=== PATIENT | female | born 2000 | race Caucasian/White ===

== ENCOUNTER 2020-05-08 12:12 | Observation (INO) | payer OTHER, SELFPAY ==
--- NOTE | 2020-05-08 12:12 | OBADM ---
This patient, Lila Lira, admitted to the OB room OB Post 111 for observation. Patient/family oriented to hospital policies and general routines including ID bracelet, bed and alarms, visiting hours, pain management, procedures, bathroom and other care routines, personal items, smoking policy, room service/diet, and visiting hours. Patient/Family are encouraged to report perceived risks to care and to ask questions if they do not understand what they are told or what they should do.
[2020-05-08 12:40] VITALS: TEMP 36.1; BMI 23.0
[2020-05-08 12:45] VITALS: BP 98/57; PULSE 76
[2020-05-08 13:00] VITALS: BP 87/54; PULSE 120
[2020-05-08 13:15] VITALS: BP 96/66; PULSE 76
[2020-05-08] MEDS: TERBUTALINE SULFATE 1 MG/ML VIAL (14:55)
[2020-05-08] MEDS: BETAMETHASONE SOD PHOS/ACETATE 30 MG/5 ML VIAL 12 MG IM (15:00)
[2020-05-09 01:00] VITALS: TEMP 36.3
[2020-05-09 01:03] VITALS: BP 106/57; PULSE 92
[2020-05-09] MEDS: NIFEdipine 30 MG TAB.ER.24 PO (07:37)
[2020-05-09 07:38] VITALS: BP 95/65; PULSE 87
[2020-05-09 10:50] VITALS: BP 91/49; PULSE 124
--- NOTE | 2020-05-09 11:44 | P.PNOB_ITS ---
OB - PN: Subj Subjective Date/time seen: 05/09/20 11:44 Mild cramping felt in her pelvis and back. Positive movement. 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 Steroids were administered and she is stable on procardia. She will be discharged after second dose of betamethasone. Time Spent With Patient Time: Total time spent is greater than 50% in coordination of care (as documented) at patient's floor/unit and/or counseling patient: Exam Const: General: comfortable, no acute distress and alert Resp: Effort & Inspection: normal respiratory effort Auscultation: no crackles, no rales and no rhonchi Cardio: Rate: regular rate Heart sounds: no click, no murmurs and no rubs GI: Inspection: non-distended GI Palp: No Tenderness to palpation present (GI) Auscultation: normal bowel sounds Extrem: General: normal to inspection, no pedal edema and no calf tenderness
[2020-05-09 12:52] VITALS: BP 104/49; PULSE 101
[2020-05-09] MEDS: BETAMETHASONE SOD PHOS/ACETATE 30 MG/5 ML VIAL 12 MG IM (14:41)
--- NOTE | 2020-05-09 15:10 | PC.NURSE ---
1450- called to clarify terbutaline order for pt to take at home, clarification order given.
--- NOTE | 2020-05-09 15:10 | PC.NURSE ---
1300- talked with pt about discharging home after celestone injection this afternoon. Instructed on pelvic rest and medications that will be sent home and when to return to the office.
== END 2020-05-09 15:05 | disposition home or self-care (01) ==
PROVIDERS: Admitting Provider Obstetrics & Gynecology; Visit Provider Obstetrics & Gynecology
DX: O47.03 False labor before 37 completed weeks of gestation, third trimester (principal); Z3A.34 34 weeks gestation of pregnancy
CPT/HCPCS: 59025; 96372; A9270; G0378; G0379; J0702; J3105

== ENCOUNTER 2020-05-20 11:31 | Inpatient (IN) | payer OTHER, SELFPAY ==
[2020-05-20] VITALS (53 sets, daily range): BP systolic 86–118; BP diastolic 47–78; PULSE 52–136; TEMP 36.3–37; O2SAT 81–100; BMI 24.5
[2020-05-20] MEDS: AMPICILLIN 2 GM/NS 100 ML 2 GM/100 ML BAG IVPB (13:07)
[2020-05-20] MEDS: LACTATED RINGERS 1,000 ML 125 ML IV CONT (13:08)
[2020-05-20 13:55] LABS: Basophils Percent Auto 0.3 % (0.2-1.2); Eosinophils Absolute Auto 0.1 K/mm3 (0-0.3); Eosinophils Percent Auto 1.3 % (0-4.4); Hematocrit 28.8 % (37.0-47.0); Hemoglobin 9.6 g/dL (12.0-15.0); Immature Granulocyte Absolute 0.05 K/mm3 (0.00-0.031); Immature Granulocyte Percent A 0.6 % (0-0.5); Lymphocytes Absolute Auto 1.69 K/mm3 (0.9-3.2); Lymphocytes Percent Auto 21.4 % (18.3-44.2); Mean Corpuscular HGB Conc 33.3 g/dl (32-36); Mean Corpuscular Hemoglobin 28.7 pg (26-34); Mean Platelet Volume 11.8 fl (7.4-10.4); Monocytes Absolute Auto 0.8 K/mm3 (0.1-0.6); Monocytes Percent Auto 10.1 % (2.6-8.5); Neutrophils Absolute Auto 5.3 K/mm3 (1.3-6.7); Neutrophils Percent Auto 66.3 % (45.5-73.1); Platelet Count Result 127 k/mm3 (150-375); Red Blood Count 3.35 M/mm3 (4.2-5.4); Red Cell Distribution Width 12.6 % (11.5-14.5); White Blood Count 7.9 K/mm3 (4.5-10.0)
--- NOTE | 2020-05-20 14:19 | LDADM ---
This patient, Lila Lira, was admitted to Labor/Delivery/Recovery 107 on 05/20/20 at 11:32. Plans for labor, pain management and were discussed with patient. Patient/family oriented to hospital policies and general routines including ID bracelet, bed and alarms, visiting hours, pain management, procedures, bathroom and other care routines, personal items, smoking policy, room service/diet and guest tray routines, security routines, and visiting hours. Patient/Family are encouraged to report perceived risks to care and to ask questions if they do not understand what they are told or what they should do. See OBIX for further documentation.
[2020-05-20 17:19] LABS: Amphetamine Screen Urine Negative (Negative); Barbiturate Screen Urine Negative (Negative); Benzodiazepines Screen Urine Negative (Negative); Cannabinoid Screen Urine Negative (Negative); Cocaine Screen Urine Negative (Negative); Methadone Screen Urine Negative (Negative); Opiate Screen Urine Negative (Negative); Phencyclidine Screen Urine Negative (Negative)
[2020-05-20] MEDS: AMPICILLIN 1 GM/NS 50 ML 1 GM/50 ML BAG IVPB ×2 (17:48→21:19)
[2020-05-20] MEDS: OXYTOCIN 30 UNITS/NS 500 ML 30 UNITS/500 ML BAG IV CONT (18:56)
--- NOTE | 2020-05-20 20:36 | WPDANESEPP ---
Anes - Eval Pre Procedure Procedure: Labor epidural Date/Time: 05/20/20 20:36 Surgeon: olvin Preop Diagnosis: pain during labor Pre Op Diagnosis: Leaking fluid Patient Data Age: 20 Gender: F Height: 1.6 m Weight: 63 kg Last Vital Signs Temp 36.5 C 05/20/20 19:00 Pulse 88 05/20/20 20:31 BP 95/47 L 05/20/20 20:31 Allergies Allergy/AdvReac Type Severity Reaction Status Date / Time No Known Allergies Allergy Verified 05/08/20 14:58 Home Medications Medication Instructions Recorded Confirmed Type nifedipine [Procardia XL] 30 mg PO Q24H #20 tablet 05/09/20 Rx terbutaline 5 mg PO Q6H PRN #20 tablet 05/09/20 Rx Laboratory Tests 05/20/20 05/20/20 05/20/20 12:17 12:17 13:50 WBC 7.9 K/mm3 K/mm3 (4.5-10.0) RBC 3.35 M/mm3 L M/mm3 (4.2-5.4) Hgb 9.6 g/dL L g/dL (12.0-15.0) Hct 28.8 % L % (37.0-47.0) MCV 86.0 fl fl (80-100) MCH 28.7 pg pg (26-34) MCHC 33.3 g/dl g/dl (32-36) RDW 12.6 % % (11.5-14.5) Plt Count 127 k/mm3 L k/mm3 (150-375) MPV 11.8 fl H fl (7.4-10.4) Immature Gran % (Auto) 0.6 % H % (0-0.5) Neut % (Auto) 66.3 % % (45.5-73.1) Lymph % (Auto) 21.4 % % (18.3-44.2) Clinch % (Auto) 10.1 % H % (2.6-8.5) Eos % (Auto) 1.3 % % (0-4.4) Baso % (Auto) 0.3 % % (0.2-1.2) Lymph # (Auto) 1.69 K/mm3 K/mm3 (0.9-3.2) Clinch # (Auto) 0.8 K/mm3 H K/mm3 (0.1-0.6) Eos # (Auto) 0.1 K/mm3 K/mm3 (0-0.3) Baso # (Auto) 0.0 K/mm3 K/mm3 (0.0-0.1) Abs Immat Gran (auto) 0.05 K/mm3 H K/mm3 (0.00-0.031) Absolute Neuts (auto) 5.3 K/mm3 K/mm3 (1.3-6.7) Absolute Nucleated RBC 0.0 K/mm3 K/mm3 (0.0-0.012) Nucleated RBC % 0.0 % % (0.0-0.2) Urine Opiates Screen Urine Methadone Screen Ur Barbiturates Screen Ur Phencyclidine Scrn Ur Amphetamine Screen U Benzodiazepines Scrn Urine Cocaine Screen U Cannabinoids Screen RPR Pending Blood Type O Positive Antibody Screen Negative 05/20/20 16:55 WBC RBC Hgb Hct MCV MCH MCHC RDW Plt Count MPV Immature Gran % (Auto) Neut % (Auto) Lymph % (Auto) Cl[place] % (Auto) Eos % (Auto) Baso % (Auto) Lymph # (Auto) Clinch # (Auto) Eos # (Auto) Baso # (Auto) Abs Immat Gran (auto) Absolute Neuts (auto) Absolute Nucleated RBC Nucleated RBC % Urine Opiates Screen Negative (Negative) Urine Methadone Screen Negative (Negative) Ur Barbiturates Screen Negative (Negative) Ur Phencyclidine Scrn Negative (Negative) Ur Amphetamine Screen Negative (Negative) U Benzodiazepines Scrn Negative (Negative) Urine Cocaine Screen Negative (Negative) U Cannabinoids Screen Negative (Negative) RPR Blood Type Antibody Screen Patient hx anesthesia problems: none Family hx anesthesia problems: none [facility] Social History Social History Smoking status: Never smoker Second hand tobacco smoke exposure: No Alcohol intake: current Substance use: never Substance use type: does not use Living arrangements: with family Occupation/Education: unemployed Gender identity (if verbalized by the patient): Female Sexual Orientation (if Verbalized by the Patient): Straight or Heterosexual Spiritual care concerns: No Agree to blood products: Yes Exam Day of Procedure 05/20/20 20:36
[2020-05-20] MEDS: LACTATED RINGERS 1,000 ML 999 ML IV CONT ×2 (22:16→23:16)
--- NOTE | 2020-05-20 23:47 | PM.OBPRVD ---
OB - Delivery Note Procedure Delivery date: 05/20/20 events: Labor < 37 Weeks Intrapartal events: None Induction method: none Delivery monitor: external FHT and external uterine Laceration description: None Specimen: Yes Estimated blood loss (mL): 126 Disposition: other () Narrative: vaginal delivery Baby Date of : 05/20/20 Time of : 23:37 Weeks of gestation at delivery: 35 gender: Female Weight (pounds): 5 Weight (ounces): 13 presentation: vertex position: Right Occiput Anterior Placenta delivery description: Spontaneous cord vessel description: 3 Vessels and Clamped/Cut score one minute: 9 score five minutes: 9 Narrative: baby vigorous and skin to skin mother and baby in stable condition
--- NOTE | 2020-05-20 23:49 | WPDOBADMIT ---
Obstetrics - Admit Note Admission Note: record reviewed. No pertinent additions to the history and/or any subsequent changes in the physical findings that are not consistent with the expected course of the were found. Pt arrived PROM, antibiotics started, Additions to the history and/or subsequent changes in the physical findings follow. None.
[2020-05-21] VITALS (10 sets, daily range): BP systolic 99–120; BP diastolic 58–74; PULSE 63–101; RESP 18; TEMP 36.7–36.8; O2SAT 100
[2020-05-21] MEDS: OXYTOCIN 30 UNITS/NS 500 ML 30 UNITS/500 ML BAG 125 UNITS IV CONT (00:15)
--- NOTE | 2020-05-21 02:59 | PC.NURSE ---
0202 on May 21, 2020. Patient transferred to post room #285 via wheelchair. Support person present. Oriented to unit, room, information board, rooming in, admission packet and security measures. Patient verbalizes understanding.
[2020-05-21] MEDS: IBUPROFEN 600 MG TABLET PO ×2 (04:02→11:35)
[2020-05-21 05:28] LABS: Hematocrit 29.1 % (37.0-47.0); Hemoglobin 9.6 g/dL (12.0-15.0)
--- NOTE | 2020-05-21 07:40 | PM.OBPNVD ---
OB - PN: Subj Subjective Date/time seen: 05/21/20 07:40 Patient comments: no complaints, pain well controlled and other (Lochia similar to menses) [place] baby status: doing well OB - PN: Obj Data Labs CBC & Chem 7: 05/21/20 04:53 Labs: Laboratory Results - last 24 hr 05/20/20 05/20/20 05/20/20 12:17 13:50 16:55 WBC 7.9 RBC 3.35 L Hgb 9.6 L Hct 28.8 L MCV 86.0 MCH 28.7 MCHC 33.3 RDW 12.6 Plt Count 127 L MPV 11.8 H Immature Gran % (Auto) 0.6 H Neut % (Auto) 66.3 Lymph % (Auto) 21.4 [place] % (Auto) 10.1 H Eos % (Auto) 1.3 Baso % (Auto) 0.3 Lymph # (Auto) 1.69 [place] # (Auto) 0.8 H Eos # (Auto) 0.1 Baso # (Auto) 0.0 Abs Immat Gran (auto) 0.05 H Absolute Neuts (auto) 5.3 Absolute Nucleated RBC 0.0 Nucleated RBC % 0.0 Urine Opiates Screen Negative Urine Methadone Screen Negative Ur Barbiturates Screen Negative Ur Phencyclidine Scrn Negative Ur Amphetamine Screen Negative U Benzodiazepines Scrn Negative Urine Cocaine Screen Negative U Cannabinoids Screen Negative Blood Type O Positive Antibody Screen Negative 05/21/20 04:53 WBC RBC Hgb 9.6 L Hct 29.1 L MCV MCH MCHC RDW Plt Count MPV Immature Gran % (Auto) Neut % (Auto) Lymph % (Auto) [place] % (Auto) Eos % (Auto) Baso % (Auto) Lymph # (Auto) [place] # (Auto) Eos # (Auto) Baso # (Auto) Abs Immat Gran (auto) Absolute Neuts (auto) Absolute Nucleated RBC Nucleated RBC % Urine Opiates Screen Urine Methadone Screen Ur Barbiturates Screen Ur Phencyclidine Scrn Ur Amphetamine Screen U Benzodiazepines Scrn Urine Cocaine Screen U Cannabinoids Screen Blood Type Antibody Screen OB - PN A/P Plan day: 1 (s/p vaginal delivery, doing well) Plan: routine care Time Spent With Patient Time: Total time spent is greater than 50% in coordination of care (as documented) at patient's floor/unit and/or counseling patient: Exam Const: General: no acute distress GI: Inspection: other (Fundus firm and nontender at umbilicus) GI Palp: Yes Soft to palpation and No Tenderness to palpation present (GI) Extrem: General: no edema
[2020-05-21 08:21] LABS: Rapid Plasma Reagin Non-Reactive (NonReactive)
--- NOTE | 2020-05-21 08:55 | WPDANLDPN2 ---
Anes-Prog Note L&D Date/Time: 05/21/20 08:55 Comfortable throughout: labor and delivery Neuraxial method: epidural Epidural/Spinal procedure site: clean & non-tender Neuro status: Neuro function grossly intact. Cardiovascular status: normal Respiratory status: normal Airway patency: baseline Mental status: baseline Post-Op hydration status: normal Vital Signs: Last Vital Signs Temp 98.2 F 05/21/20 08:49 Pulse 63 05/21/20 08:49 Resp 18 05/21/20 08:49 BP 103/68 05/21/20 08:49 Pulse Ox 100 05/21/20 08:49 I/O: Intake & Output 05/20/20 05/21/20 05/21/20 23:59 07:59 15:59 Intake Total 2100 1200 Output Total 146 Balance 2100 1054 Patient feedback: Patient satisfied with anesthetic care.
[2020-05-21] MEDS: MULTIVIT/MIN/PREN/FOL AC/IRON TABLET 1 TAB PO (10:44)
[2020-05-21] MEDS: DOCUSATE SODIUM 100 MG CAPSULE PO ×2 (10:44→18:16)
[2020-05-21] MEDS: POLYSACCHARIDE IRON COMPLEX 150 MG CAPSULE PO ×2 (10:44→18:16)
--- NOTE | 2020-05-21 11:00 | PC.NURSE ---
Consult with pt., mother reports she is breast and bottle feeding. Mother states infant is very sleepy and does not make an effort to latch. Discussed the with possible sleepiness, low tone, and ability to maintain deep latch. Mother states she attempted with first child that was 2 weeks early and switched within a few days. Discussed stimulation of milk supply offering to assist mother with initiation of pumping. Mother states she will continue to formula feed for now and will let her RN or call out for LC if she chooses to begin pumping.
[2020-05-21] MEDS: ACETAMINOPHEN 325 MG TABLET 650 MG PO (18:18)
[2020-05-22] MEDS: ACETAMINOPHEN 325 MG TABLET 650 MG PO (05:42)
[2020-05-22] MEDS: MULTIVIT/MIN/PREN/FOL AC/IRON TABLET 1 TAB PO (07:42)
[2020-05-22] MEDS: DOCUSATE SODIUM 100 MG CAPSULE PO (07:42)
[2020-05-22] MEDS: IBUPROFEN 600 MG TABLET PO (07:42)
[2020-05-22] MEDS: POLYSACCHARIDE IRON COMPLEX 150 MG CAPSULE PO (07:42)
--- NOTE | 2020-05-22 07:52 | PM.OBPNVD ---
OB - PN: Subj Subjective Date/time seen: 05/22/20 07:52 OB - PN: Obj Data Labs CBC & Chem 7: 05/21/20 04:53 Labs: Laboratory Results - last 24 hr 05/20/20 12:17 RPR Non-reactive OB - PN A/P Plan day: 2 Plan: discharge home Time Spent With Patient Time: Total time spent is greater than 50% in coordination of care (as documented) at patient's floor/unit and/or counseling patient: Review of Systems Review of Systems: All systems reviewed & are unremarkable except as noted in HPI and below Exam Const: General: comfortable Resp: Effort & Inspection: normal respiratory effort Psych: Appearance: grossly normal Affect: normal affect Attitude: cooperative Judgement: Good judgement present (Psych)
[2020-05-22 08:25] VITALS: BP 111/70; PULSE 68; RESP 16; TEMP 36.6; O2SAT 100
--- NOTE | 2020-05-22 09:35 | PC.NURSE ---
Patient instructed on viewing the discharge video Mother & Baby Care, The First Two Weeks . Patient was given the opportunity and encouraged to ask questions. Patient verbalized understanding of information shared and has been given the mother/baby guide for home reference.
--- NOTE | 2020-05-23 12:33 | PM.OBDSVD ---
OB - DS: Summary OB Procedures : None OB Procedures Intrapartum: Spontaneous Vag Delivery OB Procedures: : None Time Spent with Patient Time attestation: Total time spent providing and/or coordinating discharge services: DS: Data Data Completed and Pending Completed studies during hospitalization: Pending at discharge 05/21/20 00:56 Surgical [PTH] Routine Discharge Plan Discharge Attending physician on discharge: Bertha Mendieta Consulting providers: Danii Hamilton Discharging Clinician: Danii Hamilton Patient Disposition: Home, Self-Care Activity: pelvic rest Diet: regular Discharge Instructions: Education: Mom and Baby Guide Given to: Mother Follow-Up: Call your delivering provider's office for an appointment to be seen in: 4 Weeks [facility]. Appointment Date/Time: May 23, 2020 at 10:00 am What to expect at your follow-up visit: Physical Assessment Call [phone] if you are unable to keep your appointment time. BREAST CARE: * Wear a snug supportive bra. * For engorgement discomfort: Bottle Feeding: * May apply ice packs EPISIOTOMY/PERINEAL CARE: * Until bleeding stops, use your april bottle after urinating * Change your pad frequently throughout the day * No tub baths until seen by your physician - You may shower ACTIVITY: * Rest as much as possible. * Do not exercise or lift anything heavier than your baby (such as laundry or other children.) * Avoid stairs or driving as much as possible. * Do not put anything into the vagina. No douching, tampons, or sexual activity until seen by physician. NOTIFY PHYSICIAN IF YOU HAVE ANY QUESTIONS OR IF ANY OF THE FOLLOWING SYMPTOMS OCCUR: * If your perineum becomes red, swollen, or more painful than what you have experienced in the hospital. * If your vaginal bleeding becomes foul smelling. * If your vaginal bleeding becomes more heavy than a period or if your bleeding changes from pink to bright red. However, you may pass an occasional walnut-sized clot once or twice for the first week . * If you experience a sharp, shooting pain in you calves. * If you discover a hard, reddened area on your breast or if you experience flu-like symptoms. DIET: * Eat regular, well-balanced meals. * Drink plenty of fluids daily. Stand Alone Forms: General Discharge Information Follow-up/Referrals: Danii Hamilton CNM [Certified Nurse [employer]] - 4 Weeks Discharge Medications: New polysaccharide iron complex 150 mg iron Capsule 150 mg PO BIDWM Qty: 60 RF: 0 Discontinued nifedipine [Procardia XL] 30 mg Tablet Extended Release 24hr 30 mg PO Q24H Qty: 20 RF: 0 terbutaline 5 mg Tablet 5 mg PO Q6H PRN (Reason: MORE THAN 6 CONTRACTIONS/HR) Qty: 20 RF: 0 Date of admission: 05/20/20 11:32 Primary Care Provider: PHYSICIAN,TAILORING TEACHER Admitting Provider: Bertha Mendieta Discharge Date/Time: 05/22/20 12:00 Attending physician on admission: Bertha Mendieta
== END 2020-05-22 12:00 | disposition home or self-care (01) | DRG 560 ==
LOC: ANHLDR 15:08 → ANHOB2 05-21 02:05
PROVIDERS: Advanced Practice Midwife; Admitting Provider Obstetrics & Gynecology; Visit Provider Obstetrics & Gynecology
DX: O60.14X0 Preterm labor third trimester with preterm delivery third trimester, not applicable or unspecified (principal); Z37.0 Single live birth; Z3A.35 35 weeks gestation of pregnancy; O36.8330 Maternal care for abnormalities of the fetal heart rate or rhythm, third trimester, not applicable or unspecified
CPT/HCPCS: 36415; 80307; 85014; 85018; 85025; 86592; 86850; 86900; 86901; 88307; A9270; J0290; J2590; J2795; J7120

== ENCOUNTER 2021-05-23 11:27 | Emergency (ER) | payer OTHER, SELFPAY ==
[2021-05-23 11:36] VITALS: BP 103/69; PULSE 81; RESP 18; TEMP 36.9; O2SAT 100
--- NOTE | 2021-05-23 12:07 | ED.NAVMDI ---
HPI - Nausea/Vomiting/Diarrhea General Chief complaint: Nausea/Vomiting/Diarrhea Stated complaint: VOMITING/DIARRHEA Source: patient and RN notes reviewed Mode of arrival: ambulatory History of Present Illness HPI Narrative: This is a 21-year-old female who presented to urgent care with nausea vomiting and diarrhea that started this morning. According to patient she assumed that she had food poisoning because she had her own meal which she does not usually do. She did note with her vomiting and there was food particles. Denies any blood in her urine or vomit. The patient denies SOB, CP, palpitation, extremity numbness, lightheadedness, dizziness, constipation, diarrhea, chills, abdominal pain or fever. MD elicited complaint: nausea, vomiting and diarrhea Related Data Allergies Allergy/AdvReac Type Severity Reaction Status Date / Time No Known Allergies Allergy Verified 05/23/21 11:38 Review of Systems Review of Systems: A 14 organ system Review of Systems was performed and pertinent positives included in the HPI, otherwise remaining ROS is negative. [facility] Family History Family History (Updated 05/23/21 @ 12:09 by KEON Galvin-C) Other Family history non-contributory Exam Narrative: GENERAL: This is a well-nourished, well-developed patient, in no apparent distress. HEAD: normocephalic, atraumatic. EYES: PERRL. Sclera clear/white. Vision is grossly intact. EARS: External ears normal, auditory canals clear and without drainage, TMs normal without perforation. Hearing grossly intact. NOSE: External nose normal with no obvious nasal discharge, nares without redness, no rhinorrhea. THROAT: Mucous membranes moist, posterior pharynx clear. NECK: Neck supple, non-tender without lymphadenopathy, masses or thyromegaly. CARDIOVASCULAR: Regular rate and rhythm without murmurs, gallops, or rubs. RESPIRATORY: Clear to auscultation. Breath sounds equal bilaterally. No wheezes, rales, or rhonchi. GASTROINTESTINAL: Abdomen soft, non-tender, nondistended. Bowel sounds are active. No hepato-splenomegaly, or palpable masses. No guarding. SKIN: warm, intact with no suspicious lesions or rash, good texture and turgor. NEURO: awake, alert, and oriented to person, place and time. There were no obvious focal neurologic abnormalities. Steady gait EXTREMITIES: Normal range of motion. No edema. No calf tenderness. Negative Homans sign bilaterally. BACK: Nontender without deformity or crepitance. No flank tenderness. Course Course Emergency Course: Patient was discharged home with Zofran and Imodium and instructed to stay hydrated Vital Signs Vital signs: Vital Signs Temperature 98.5 F 05/23/21 11:36 Pulse Rate 81 05/23/21 11:36 Respiratory Rate 18 05/23/21 11:36 Blood Pressure 103/69 05/23/21 11:36 Pulse Oximetry 100 05/23/21 11:36 Temperature 98.5 F 05/23/21 11:36 Pulse Rate 81 05/23/21 11:36 Respiratory Rate 18 05/23/21 11:36 Blood Pressure 103/69 05/23/21 11:36 Pulse Oximetry 100 05/23/21 11:36 MDM - Nausea/Vomiting/Diarrhea Differential Diagnosis Differential diagnosis: Likely traveler's diarrhea, food poisoning and gastroenteritis Discharge Plan Discharge Clinical Impression: Gastritis Qualifiers: Gastritis type: unspecified gastritis Chronicity: acute Gastritis bleeding: without bleeding Qualified Code(s): K29.00 - Acute gastritis without bleeding Patient Disposition: Home, Self-Care Condition: Stable Instructions: Antibiotic Form, Gastroenteritis (ED), Acute Nausea and Vomiting (ED) Additional Instructions: What are the symptoms of gastritis? Pain in the upper belly Feeling bloated, or feeling full after eating a small amount of food Decreased appetite Nausea or vomiting Vomiting blood, or having black-colored bowel movements Feeling more tired than usual - This happens if people with gastritis get a condition called anemia. Should I call my doctor or nurse
== END 2021-05-23 12:24 | disposition home or self-care (01) ==
PROVIDERS: Emergency Provider Nurse Practitioner
DX: K29.00 Acute gastritis without bleeding (principal)
CPT/HCPCS: 99203; G0463

== ENCOUNTER 2021-06-29 09:15 | Emergency (ER) | payer OTHER, SELFPAY ==
[2021-06-29 09:31] VITALS: BP 102/59; PULSE 73; RESP 16; TEMP 36.6; O2SAT 100
--- NOTE | 2021-06-29 10:04 | ED.NAVMDI ---
HPI - Nausea/Vomiting/Diarrhea General Chief complaint: Nausea/Vomiting/Diarrhea Stated complaint: diarrhea/vomiting/fever Time Seen by Provider: 06/29/21 10:07 Source: patient, RN notes reviewed and old records reviewed Mode of arrival: ambulatory Limitations: no limitations History of Present Illness HPI Narrative: 21 year old female who presents to express care with complaints of nausea with vomiting and diarrhea since 2:00 this morning. Patient reports emesis X2 early this morning and she has had 4 diarrhea stools.Patient states that she has been able to keep down some water today but has not tried any food. She states that she did have a fever yesterday up to 100F with some chills did take some Ibuprofen. Patient reports also that her son did have diarrhea recently was diagnosed with viral infection. MD elicited complaint: vomiting and diarrhea Related Data Home Medications Medication Instructions Recorded Confirmed medroxyprogesterone [Depo-Provera 150 mg IM [id number] 06/29/21 06/29/21 Contraceptive] Allergies Allergy/AdvReac Type Severity Reaction Status Date / Time No Known Allergies Allergy Verified 06/29/21 09:58 Review of Systems Review of Systems: CONSTITUTIONAL: Reports 100 Fahrenheit temperature yesterday, chills, no sweats. EYES: Denies visual changes, redness, or discharge. ENT: Denies rhinorrhea, congestion, sore throat, or otalgia. CARDIOVASCULAR: Denies chest pain, palpitations, or edema. RESPIRATORY: Denies cough or dyspnea. GASTROINTESTINAL: Left-sided abdominal cramping , nausea, vomiting, and diarrhea. GENITOURINARY: Denies dysuria or hematuria. SKIN: Denies rash or itching. MUSCULOSKELETAL: Denies back pain, joint pain, or myalgia. NEUROLOGIC: Denies headache, numbness, or weakness. PSYCHIATRIC: Denies anxiety or depression. All systems reviewed & are unremarkable except as noted in HPI and below PMFSH Past Medical History Medical History (Updated 07/05/21 @ 13:43 by Carole Whitney NP) No significant medical problems Surgical History Surgical History (Updated 07/05/21 @ 13:42 by Carole Whitney NP) History of tonsillectomy Family History Family History Other Family history non-contributory Social History Social History (Updated 07/05/21 @ 13:43 by Carole Whitney NP) Smoking status: Never smoker Alcohol intake: current Alcohol use details: social Substance use: never Living arrangements: with family Gender identity (if verbalized by the patient): Female Comments At time of signature, agree with nursing past medical, surgical, social and family history. There is no relevant family history pertinent to the presenting complaint Exam Narrative: GENERAL: Well-appearing, well-nourished, and in no acute distress. HEAD: Normocephalic, atraumatic. EYES: PERRLA and EOMI. ENT: Nares clear, no rhinorrhea or epistaxis. Mucous membranes moist.TM's normal with god light reflex, throat pink with no lesions or exudate tonsils absent. NECK: Supple.no lymphadenopathy CHEST: Clear to auscultation. No respiratory distress.SAO2 100% on room air HEART: Regular rate and rhythm. No murmur heard. Normal peripheral pulses. ABDOMEN: Soft, tender to palpation, nondistended, normal active bowel sounds.cramping type of discomfort related to diarrhea voiced.No McBurney point tenderness EXTREMITIES: Normal range of motion. No edema. SKIN: Warm, dry, no rash. NEURO: No focal deficits. Alert and oriented x3. Course Vital Signs Vital signs: Vital Signs Temperature 36.6 C 06/29/21 09:31 Pulse Rate 73 06/29/21 09:31 Respiratory Rate 16 06/29/21 09:31 Blood Pressure 102/59 L 06/29/21 09:31 Pulse Oximetry 100 06/29/21 09:31 Temperature 36.6 C 06/29/21 09:31 Pulse Rate 73 06/29/21 09:31 Respiratory Rate 16 06/29/21 09:31 Blood Pressure 102/59 L 06/29/21 09:31 Pulse Oximetry 100 06/29/21 09:
== END 2021-06-29 10:30 | disposition home or self-care (01) ==
PROVIDERS: Emergency Provider Registered Nurse
DX: K52.9 Noninfective gastroenteritis and colitis, unspecified (principal)
CPT/HCPCS: 99213; G0463

== ENCOUNTER 2022-01-10 19:23 | Emergency (ER) | payer OTHER, SELFPAY ==
[2022-01-10 19:32] VITALS: BP 116/66; PULSE 100; RESP 18; TEMP 37.4; O2SAT 100
--- NOTE | 2022-01-10 19:37 | ED.GENADULT ---
HPI - General Adult General Chief complaint: Unspecified Stated complaint: Chest Pain,Headache Time Seen by Provider: 01/10/22 19:37 Source: patient Mode of arrival: ambulatory Limitations: no limitations History of Present Illness HPI narrative: 21-year-old female presents with complaint of chest tightness, cough, sore throat, headache that started after cleaning bathroom with bleach today. Reports that she took Motrin but is still having headache. States that she just got really worried when symptoms started. Has cleaned with bleach in the past. Patient alert and talkative, denies shortness of breath. All systems reviewed and negative except as noted above. Related Data Home Medications Medication Instructions Recorded Confirmed No Home Medications 01/10/22 01/10/22 Allergies Allergy/AdvReac Type Severity Reaction Status Date / Time No Known Allergies Allergy Verified 01/10/22 19:37 Review of Systems Review of Systems: CONSTITUTIONAL: Denies fever, chills, or sweats. EYES: Denies visual changes, redness, or discharge. ENT: Denies rhinorrhea, congestion. Reports sore throat CARDIOVASCULAR: Reports chest pain. Denies palpitations, or edema. RESPIRATORY: Reports cough. Denies dyspnea. GASTROINTESTINAL: Denies abdominal pain, nausea, vomiting, or diarrhea. GENITOURINARY: Denies dysuria or hematuria. SKIN: Denies rash or itching. MUSCULOSKELETAL: Denies back pain, joint pain, or myalgia. NEUROLOGIC: Denies headache, numbness, or weakness. PSYCHIATRIC: Denies anxiety or depression. All other systems reviewed are negative, except as documented in HPI. [facility] Past Medical History Medical History (Updated 01/10/22 @ 19:49 by Julieth Harley NP) No significant medical problems Surgical History Surgical History (Updated 07/05/21 @ 13:42 by Carole Whitney NP) History of tonsillectomy Family History Family History Other Family history non-contributory Social History Social History (Updated 07/05/21 @ 13:43 by Carole Whitney NP) Smoking status: Never smoker Alcohol intake: current Alcohol use details: social Substance use: never Gender identity (if verbalized by the patient): Female Comments At time of signature, agree with nursing past medical, surgical, social and family history. There is no relevant family history pertinent to the presenting complaint. Exam Narrative: GENERAL: This is a well-nourished, well-developed patient, in no apparent distress. HEAD: normocephalic, atraumatic. EYES: PERRL. Sclera clear/white. Vision is grossly intact. EARS: External ears normal, auditory canals clear and without drainage, TMs normal without perforation. Hearing grossly intact. NOSE: External nose normal with no obvious nasal discharge, nares without redness, no rhinorrhea. THROAT: Mucous membranes moist, posterior pharynx clear. NECK: Neck supple, non-tender without lymphadenopathy, masses or thyromegaly. CARDIOVASCULAR: Regular rate and rhythm without murmurs, gallops, or rubs. RESPIRATORY: Clear to auscultation. Breath sounds equal bilaterally. No wheezes, rales, or rhonchi. SKIN: warm, Dry, intact with no suspicious lesions or rash, good texture and turgor. NEURO: awake, alert, and oriented to person, place and time. There were no obvious focal neurologic abnormalities. EXTREMITIES: Normal range of motion all extremities. Course Course Level of Care: Express Care Visit Vital Signs Vital signs: Vital Signs Temperature 37.4 C 01/10/22 19:32 Pulse Rate 100 01/10/22 19:32 Respiratory Rate 18 01/10/22 19:32 Blood Pressure 116/66 01/10/22 19:32 Pulse Oximetry 100 01/10/22 19:32 Temperature 37.4 C 01/10/22 19:32 Pulse Rate 100 01/10/22 19:32 Respiratory Rate 18 01/10/22 19:32 Blood Pressure 116/66 01/10/22 19:32 Pulse Oximetry 100 01/10/22 19:32 Reviewed Medical Decision Reji
--- NOTE | 2022-01-10 19:38 | ECG_ITS ---
Measurements Intervals [place] Rate: 93 P: 60 UT: 160 QRS: 76 QRSD: 84 T: 48 QT: 335 QTc: 418 Interpretive Statements SINUS RHYTHM WITHIN NORMAL LIMITS NO PREVIOUS ECG AVAILABLE FOR COMPARISON Electronically Signed On 01-11-2022 8:35:59 CDT by Kevin Chilel M.D.
== END 2022-01-10 20:08 | disposition home or self-care (01) ==
PROVIDERS: Emergency Provider Nurse Practitioner Family
DX: Z77.098 Contact with and (suspected) exposure to other hazardous, chiefly nonmedicinal, chemicals (principal); R07.9 Chest pain, unspecified; R05.9 Cough, unspecified; J02.9 Acute pharyngitis, unspecified; R51.9 Headache, unspecified; Z20.822 Contact with and (suspected) exposure to COVID-19
CPT/HCPCS: 87426; 87804; 93005; 99213; C9803; G0463

== ENCOUNTER 2022-04-28 19:04 | Emergency (ER) | payer OTHER, SELFPAY ==
[2022-04-28 19:12] VITALS: BP 96/48; PULSE 81; RESP 16; TEMP 37.1; O2SAT 100
--- NOTE | 2022-04-28 19:45 | ED.SKABFB ---
HPI - Skin/Abscess/Foreign Bdy General Chief complaint: Skin/Abscess/Foreign Body Stated complaint: rash Time Seen by Provider: 04/28/22 19:45 Source: patient Mode of arrival: ambulatory Limitations: no limitations History of Present Illness HPI narrative: 22-year-old female presented for complaint of rash to right elbow and scattered bumps to right hand, first noticed today. Bumps are itchy, denies pain or drainage. Denies changes to lotion, soap, detergent etc. She had been taking oral Flagyl, but changed to cream. Denies any other locations of lesions. Denies anyone in the household with similar lesions. MD complaint: rash Related Data Allergies Allergy/AdvReac Type Severity Reaction Status Date / Time No Known Allergies Allergy Verified 04/28/22 19:55 Review of Systems Review of Systems: CONSTITUTIONAL: Denies body aches, fever, chills, or sweats. EYES: Denies visual changes, redness, or discharge. ENT: Denies rhinorrhea, congestion, sore throat, or otalgia. CARDIOVASCULAR: Denies chest pain, palpitations, or edema. RESPIRATORY: Denies cough or dyspnea. SKIN: reports rash, itching MUSCULOSKELETAL: Denies back pain, joint pain, or myalgia. NEUROLOGIC: Denies headache, numbness, tingling, or weakness. [facility] Past Medical History Medical History No significant medical problems Surgical History Surgical History History of tonsillectomy Family History Family History Other Family history non-contributory Social History Social History Smoking status: Never smoker Alcohol intake: current Alcohol use details: social Substance use: never Gender identity (if verbalized by the patient): Female Comments At time of signature, I have reviewed and agree with nursing past medical, surgical, social and family history unless otherwise noted. Please see nursing chart for further information. There is no relevant family history pertinent to the presenting complaint Exam Narrative: GENERAL: Well-appearing EYES: conjunctivae clear, and EOMI. ENT: Mucous membranes moist. Oropharynx without edema, erythema or lesions. CHEST: Clear to auscultation. No respiratory distress. HEART: Regular rate and rhythm. SKIN: Warm, dry. approx 3cm diameter patch of erythematous raised lesions to right elbow about 3mm diameter, no drainage or fluctuance NEURO: Alert and oriented x3. Course Course Emergency Course: Patient is aware of diagnosis, understands and agrees to treatment plan. Anticipatory guidance given. Patient agrees to follow-up as directed and is aware of reasons to seek care at the emergency department. Portions of this record may have been created with voice recognition software Level of Care: Express Care Visit Vital Signs Vital signs: Vital Signs Temperature 98.7 F 04/28/22 19:12 Pulse Rate 81 04/28/22 19:12 Respiratory Rate 16 04/28/22 19:12 Blood Pressure 96/48 L 04/28/22 19:12 Pulse Oximetry 100 04/28/22 19:12 Oxygen Delivery Room Air 04/28/22 19:12 Temperature 98.7 F 04/28/22 19:12 Pulse Rate 81 04/28/22 19:12 Respiratory Rate 16 04/28/22 19:12 Blood Pressure 96/48 L 04/28/22 19:12 Pulse Oximetry 100 04/28/22 19:12 Oxygen Delivery Room Air 04/28/22 19:12 Reviewed MDM - Skin/Abscess/Foreign Bdy MDM Narrative Medical decision making narrative: Endorses irregular menses x2 months, urine preg neg. Advised supportive measures for dermatitis and signs/symptoms to go to the ER. Pt is appropriate for outpt treatment and f/u. Differential Diagnosis Differential diagnosis: Likely urticaria, allergic reaction to drug, cellulitis, insect bites and contact dermatitis Discharge Plan Discharge Clinical Impression: Dermatitis
== END 2022-04-28 20:05 | disposition home or self-care (01) ==
PROVIDERS: Emergency Provider Nurse Practitioner Family; PCP Internal Medicine
DX: L30.9 Dermatitis, unspecified (principal)
CPT/HCPCS: 81025; 99213; G0463

== ENCOUNTER 2022-08-22 11:50 | Outpatient (RCR) | payer OTHER, SELFPAY ==
[2022-08-22 12:33] LABS: Beta HCG Quantitative < 2.39 mIU/ML
== END 2022-11-20 23:59 | disposition home or self-care (01) ==
LOC: ANHLAB 11:50
PROVIDERS: PCP Internal Medicine; Visit Provider Obstetrics & Gynecology
DX: N92.6 Irregular menstruation, unspecified (principal)
CPT/HCPCS: 36415; 84702

== ENCOUNTER 2022-10-05 15:37 | Observation (INO) | payer OTHER, SELFPAY ==
--- NOTE | ~2022-10-05 | US_ITS ---
EXAMINATION: US OB <=14 wk fetus w TV DATE: 10/05/2022 20:39 INDICATION: Right lower quadrant abdominal pain and lower abdominal cramping during first trimester p regnancy. TECHNIQUE: Real-time pelvic ultrasound utilizing both a transvaginal and transabdominal probe was pe rformed. The interpreting radiologist was not present for the study. COMPARISON: None. FINDINGS: The uterus measures 8.9 x 5.0 x 6.4 cm. There is heterogeneous mixed hypoechoic and isoechoic materi al within the endometrial canal which is dilated to 1.7 cm .No evident double decidua sign, internal yolk sac or pole. The right ovary measures 2.8 x 1.9 x 2.1 cm with multiple small subcentimeter anechoic follicles. cm. The left ovary measures 2.7 x 2.1 x 2.0 cm. Vascular flow is identified in both ovaries on color Dop pler. On the cine images, anechoic parametrial vessels can be seen along side the uterus and a band o f hypoechoic soft tissue extending between the uterus and the right ovary likely representing the fal lopian tube and broad ligament. Along the course of the likely fallopian tube is approximately 11 mm centrally anechoic cystic structure with internal 2 mm echogenic focus which raises concern for ectop ic . There is no free fluid in the pelvis. IMPRESSION: 1. No intrauterine gestational sac. Differential would include failed or ectopic . Heterogen eous hyperechoic and isoechoic material within the dilated endometrial canal which could represent bl ood/clot or potentially products of a failed conception. 2. 2 mm echogenic focus within 11 mm anechoic cystic structure along what appears to be the right fal lopian tube which raises high level of concern for a tubal ectopic . Recommend PLASTICS PRODUCTION 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 consul tation. Dr. Lai discussed these findings with Dr. Sandhu at 8:55 PM. Reviewed, dictated and finalized at location A. EGNATOR OPERATOR IMPRESSION: 1. No intrauterine gestational sac. Differential would include failed or ectopi c . Heterogeneous hyperechoic and isoechoic material within the dilate d endometrial canal which could represent blood/clot or potentially products of a failed conception. 2. 2 mm echogenic focus within 11 mm anechoic cystic structure along what appea rs to be the right fallopian tube which raises high level of concern for a tuba l ectopic . Recommend PLASTICS PRODUCTION 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 consultation. Dr. Lai discussed thes e findings with Dr. Sandhu at 8:55 PM.
[2022-10-05 16:22] VITALS: BP 106/64; PULSE 72; RESP 16; TEMP 36.9; O2SAT 100
[2022-10-05 18:17] LABS: Basophils Absolute Auto 0.1 K/mm3 (0.0-0.1); Basophils Percent Auto 0.7 % (0.2-1.2); Eosinophils Absolute Auto 0.3 K/mm3 (0-0.3); Eosinophils Percent Auto 3.3 % (0-4.4); Hematocrit 39.2 % (37.0-47.0); Hemoglobin 12.9 g/dL (12.0-15.0); Immature Granulocyte Absolute 0.02 K/mm3 (0.00-0.031); Immature Granulocyte Percent A 0.3 % (0-0.5); Lymphocytes Absolute Auto 3.34 K/mm3 (0.9-3.2); Lymphocytes Percent Auto 43.5 % (18.3-44.2); Mean Corpuscular HGB Conc 32.9 g/dl (32-36); Mean Corpuscular Hemoglobin 28.7 pg (26-34); Mean Corpuscular Volume 87.1 fl (80-100); Monocytes Absolute Auto 0.6 K/mm3 (0.1-0.6); Monocytes Percent Auto 7.7 % (2.6-8.5); Neutrophils Absolute Auto 3.4 K/mm3 (1.3-6.7); Neutrophils Percent Auto 44.5 % (45.5-73.1); Platelet Count Result 251 k/mm3 (150-375); Red Cell Distribution Width 12.1 % (11.5-14.5); White Blood Count 7.7 K/mm3 (4.5-10.0)
--- NOTE | 2022-10-05 18:24 | PC.NURSE ---
Patient states she began bleeding on the and had heavy bleeding that day, but has not had any bleeding since
--- NOTE | 2022-10-05 18:57 | ED.GENADULT ---
HPI - General Adult General Chief complaint: Vaginal Bleeding <RELL Chacon Last Filed: 10/06/22 03:30> Stated complaint: cramping, bleeding, (unknown gestestion) <RELL Chacon Last Filed: 10/06/22 03:30> Time Seen by Provider: 10/05/22 18:31 <RELL Chacon Last Filed: 10/06/22 03:30> Source: patient <RELL Chacon Last Filed: 10/06/22 03:30> Mode of arrival: ambulatory <RELL Chacon Filed: 10/06/22 03:30> Limitations: no limitations <RELL Chacon Last Filed: 10/06/22 03:30> History of Present Illness HPI narrative: Patient is a 22 y/o female who presents to the ED with c/o lower ABD cramping. Patient reports she was late on her menstrual cycle last month. Last normal menstrual period 08/25. She had an episode of vaginal bleeding on 10/01. Bleeding was slightly heavy that day and she assumed she was having her normal menstrual cycle. Bleeding lasted for 1 day. She has not had any bleeding since then. Patient developed some mild breast tenderness yesterday and took a test at home which was positive. This makes her A1. Today, patient developed lower abdominal cramping, worse on the right side, which prompted her presentation. She has not taken anything for the pain. She reports nausea but denies vomiting. Denies urinary symptoms, fever, diarrhea, constipation. She plans to follow with Dr. Mendieta but has not made an appointment to see him yet. <RELL Chacon Last Filed: 10/06/22 03:30> Related Data Allergies/adverse reactions: Allergies Allergy/AdvReac Type Severity Reaction Status Date / Time No Known Allergies Allergy Verified 10/05/22 16:23 <RELL Chacon Last Filed: 10/06/22 03:30> Review of Systems Review of Systems: CONSTITUTIONAL: Denies fever, chills, or sweats. CARDIOVASCULAR: Denies chest pain. RESPIRATORY: Denies dyspnea. GASTROINTESTINAL: Reports lower abdominal cramping, nausea. Denies vomiting, constipation, or diarrhea. GENITOURINARY: Reports 1 day of vaginal bleeding. Denies dysuria or hematuria. <Mary Sandhu PA-C - Last Filed: 10/06/22 03:30> All systems reviewed & are unremarkable except as noted in HPI and below <Mary Sandhu PA-C - Last Filed: 10/06/22 03:30> PMFSH Past Medical History Medical History: Medical History No significant medical problems <Mary Sandhu PA-C - Last Filed: 10/06/22 03:30> Surgical History Surgical History: Surgical History History of tonsillectomy <Mary Sandhu PA-C - Last Filed: 10/06/22 03:30> Family History Family History: Family History Other Family history non-contributory <Mary Sandhu PA-C - Last Filed: 10/06/22 03:30> Social History Social History: Social History Smoking status: Never smoker Alcohol intake: current Alcohol use details: social Substance use: never Gender identity (if verbalized by the patient): Female <Mary Sandhu PA-C - Last Filed: 10/06/22 03:30> Exam Narrative: GENERAL: Well appearing, well-nourished, non-toxic, in no acute distress. HEAD: Normocephalic, atraumatic. NECK: Supple. No adenopathy, no masses. RESPIRATORY: Airway patent, respirations nonlabored. Clear to auscultation bilaterally, no rales, rhonchi, wheezing. CARDIOVASCULAR: Regular rate and rhythm without murmurs, rubs, or gallops. Peripheral pulses 2+ and equal bilaterally. ABDOMINAL: Soft, mild tenderness throughout lower ABD, worse in RLQ, nondistended, no hepatosplenomegaly. Normoactive BS. MUSCULOSKELETAL: Moves all extremities. Strength
[2022-10-05 19:17] VITALS: BP 110/96; PULSE 60; RESP 14; O2SAT 100
[2022-10-05 19:28] LABS: Add Urine Microscopic? YES; Appearance Urine Slightly Cloudy (Clear); Bilirubin Urine Negative (Negative); Blood Urine Negative (Negative); Color Urine Yellow (Yellow); Glucose Urine UA Negative (Negative); Ketones Urine Trace mg/dL (Negative); Leukocyte Esterase Ur Negative LEU/UL (Negative); Nitrate Urine Negative (Negative); Protein Urine Negative (Negative); Specific Grav Ur >= 1.030 (1.001-1.035)
[2022-10-05 19:36] LABS: Mucus Urine Heavy /lpf; RBC Urine 0-2 /hpf (0-2); Squamous Epithelial Cell Urine Few /hpf (Few); WBC Urine 0-3 /hpf
[2022-10-05 21:55] LABS: INR 1.1; Prothrombin Time 13.9 Seconds (11.1-14.7)
[2022-10-05 21:56] LABS: Partial Thromboplastin Time 29.6 SECONDS (22.3-36.8)
[2022-10-05 22:13] VITALS: BP 114/68; PULSE 63; RESP 16; O2SAT 100
[2022-10-05 23:17] VITALS: BP 124/61; PULSE 62; TEMP 36.9
[2022-10-05 23:18] VITALS: BP 124/61; PULSE 62
[2022-10-06 00:16] VITALS: BMI 20.4
--- NOTE | 2022-10-06 01:24 | OBADM ---
This patient, Lila Lira, admitted to the OB room OB Post 113 for observation. Patient/family oriented to hospital policies and general routines including ID bracelet, bed and alarms, visiting hours, pain management, procedures, bathroom and other care routines, personal items, smoking policy, room service/diet, and visiting hours. Patient/Family are encouraged to report perceived risks to care and to ask questions if they do not understand what they are told or what they should do.
[2022-10-06 01:26] VITALS: BP 124/61; PULSE 105; TEMP 36.9
[2022-10-06 04:07] VITALS: BP 111/67; PULSE 75; TEMP 36.9
[2022-10-06 04:08] VITALS: BP 111/67; PULSE 75
[2022-10-06 05:26] LABS: Hematocrit 35.1 % (37.0-47.0); Hemoglobin 11.7 g/dL (12.0-15.0)
--- NOTE | 2022-10-06 08:30 | PM.IMHP ---
H&P: HPI History of Present Illness Date/Time: 10/06/22 08:30 Chief Complaint: Vaginal bleeding Narrative: this patient is a 22-year-old multiparous female at unknown gestational age. She presented the ER with some vaginal bleeding. She has a positive test at home. She has no pain. She is evaluated in the emergency department. She has a 1 cm cystic structure in the adnexa. She has nothing in the intrauterine cavity. She denies any nausea, vomiting, fever, chills. Review of Systems Review of Systems: All systems reviewed & are unremarkable except as noted in HPI and below Constitutional: Constitutional: Denies chills, Denies fatigue, Denies fever(s) and Denies weakness Eyes: Eyes: Denies blurry vision, Denies change in vision, Denies loss of peripheral vision, Denies loss of vision, Denies other visual disturbances and Denies eye pain ENT: Denies vertigo, Denies dizziness, Denies hearing loss, Denies mouth pain, Denies nasal obstruction, Denies neck mass and Denies neck pain Cardiovascular: Cardiovascular: Denies chest pain, Denies diaphoresis, Denies syncope, Denies leg edema and Denies dyspnea Respiratory: Respiratory: Denies chest congestion, Denies cough, Denies hemoptysis, Denies dyspnea and Denies wheezing Gastrointestinal: Gastrointestinal: Denies abdominal pain, Denies constipation, Denies diarrhea, Denies nausea and Denies vomiting Genitourinary: Genitourinary: Denies hematuria, Denies change in libido, Denies nocturia, Denies genital lesions, Denies flank pain and Denies urinary urgency Musculoskeletal: Musculoskeletal: Denies abnormal gait, Denies back pain, Denies myalgias, Denies arthralgias, Denies joint swelling, Denies muscle weakness and Denies neck pain Integumentary/Breasts: Skin/Breast: Denies swelling, Denies breast pain, Denies breast mass, Denies dry skin, Denies nipple discharge, Denies unusual bruising and Denies jaundice Neurologic: Denies Neuro-related abnormal movements, Denies Abnormal speech present, Denies abnormal gait, Denies behavioral changes, Denies confusion, Denies vertigo, Denies dizziness, Denies syncope, Denies loss of vision, Denies memory loss, Denies convulsions and Denies weakness Psychiatric: Psychiatric: Denies abnormal sleep pattern, Denies behavioral changes, Denies change in libido, Denies confusion, Denies depression, Denies anhedonia and Denies memory loss Endocrine: Endocrine: Reports no additional endocrine complaints, Denies change in libido and Denies fatigue Hematologic/Lymphatic: Hematologic/Lymphatic: Reports no additional hematologic/lymphatic complaints Allergic/Immunologic: Allergic/Immunologic: Reports no additional allergic/immunologic complaints and Denies wheezing PMFSH Past Medical History Medical History No significant medical problems Surgical History Surgical History History of tonsillectomy Family History Family History Other Family history non-contributory Social History Social History Smoking status: Never smoker Alcohol intake: current Alcohol use details: social Substance use: never Gender identity (if verbalized by the patient): Female Meds Home Medications and Allergies Home Medications Medication Instructions Recorded Confirmed Type methylprednisolone 4 mg tablets in See Rx Instructions PO .COMPLEX 04/28/22 Rx a dose pack (Medrol (Maksim)) #21 ea Allergies Allergy/AdvReac Type Severity Reaction Status Date / Time No Known Allergies Allergy Verified 10/05/22 16:23 Vital Signs Vital Signs - 24 hr 10/05/22 16:22 10/05/22 19:17 10/05/22 22:13 Temperature 98.5 F Pulse Rate 72 60 63 Respiratory Rate 16 14 16 Blood Pressure 106/64 110/96 H 114/68 Pulse O
--- NOTE | 2022-10-26 20:31 | PM.OBTRLD ---
OB - Triage/Final Diagnosis Visit Information Comments/Additional reasons for admission: I have assessed the risk for this patient, Lila Lira, and determined that she would benefit from observation care. Evaluation Laboratory results: Laboratory Tests 10/05/22 10/05/22 10/05/22 18:09 18:09 19:14 WBC 7.7 RBC 4.50 Hgb 12.9 Hct 39.2 MCV 87.1 MCH 28.7 MCHC 32.9 RDW 12.1 Plt Count 251 MPV 11.0 H Immature Gran % (Auto) 0.3 Neut % (Auto) 44.5 L Lymph % (Auto) 43.5 Wheeler % (Auto) 7.7 Eos % (Auto) 3.3 Baso % (Auto) 0.7 Lymph # (Auto) 3.34 H Wheeler # (Auto) 0.6 Eos # (Auto) 0.3 Baso # (Auto) 0.1 Abs Immat Gran (auto) 0.02 Absolute Neuts (auto) 3.4 Absolute Nucleated RBC 0.0 Nucleated RBC % 0.0 PT INR APTT Beta HCG, Quant 570.23 Urine Color Yellow Urine Appearance Slightly cloudy Urine pH 6.0 Ur Specific [place] >= 1.030 Urine Protein Negative Urine Glucose (UA) Negative Urine Ketones Trace Ur Blood (Man) Negative Urine Nitrate Negative Urine Bilirubin Negative Urine Urobilinogen 1.0 Leukocyte Esterase Rfl Negative Urine RBC 0-2 Urine WBC 0-3 Ur Squamous Epith Cells Few Urine Mucus Heavy H Blood Type Antibody Screen Screen Doses of RhIg Required 10/05/22 10/05/22 10/06/22 19:45 21:41 05:03 WBC RBC Hgb 11.7 L Hct 35.1 L MCV MCH MCHC RDW Plt Count MPV Immature Gran % (Auto) Neut % (Auto) Lymph % (Auto) Wheeler % (Auto) Eos % (Auto) Baso % (Auto) Lymph # (Auto) Wheeler # (Auto) Eos # (Auto) Baso # (Auto) Abs Immat Gran (auto) Absolute Neuts (auto) Absolute Nucleated RBC Nucleated RBC % PT 13.9 INR 1.1 APTT 29.6 Beta HCG, Quant Urine Color Urine Appearance Urine pH Ur Specific [place] Urine Protein Urine Glucose (UA) Urine Ketones Ur Blood (Man) Urine Nitrate Urine Bilirubin Urine Urobilinogen Leukocyte Esterase Rfl Urine RBC Urine WBC Ur Squamous Epith Cells Urine Mucus Blood Type O Positive Antibody Screen Negative Screen TNP Doses of RhIg Required 0 10/06/22 05:03 WBC RBC Hgb Hct MCV MCH MCHC RDW Plt Count MPV Immature Gran % (Auto) Neut % (Auto) Lymph % (Auto) Wheeler % (Auto) Eos % (Auto) Baso % (Auto) Lymph # (Auto) Wheeler # (Auto) Eos # (Auto) Baso # (Auto) Abs Immat Gran (auto) Absolute Neuts (auto) Absolute Nucleated RBC Nucleated RBC % PT INR APTT Beta HCG, Quant 449.09 Urine Color Urine Appearance Urine pH Ur Specific [place] Urine Protein Urine Glucose (UA) Urine Ketones Ur Blood (Man) Urine Nitrate Urine Bilirubin Urine Urobilinogen Leukocyte Esterase Rfl Urine RBC Urine WBC Ur Squamous Epith Cells Urine Mucus Blood Type Antibody Screen Screen Doses of RhIg Required Final Diagnosis (1) Ectopic : Qualifiers: Intrauterine status: without intrauterine Laterality: right Location of ectopic : tubal Qualified Code(s): O00.101 - Right tubal without intrauterine Code(s): O00.90 - Unspecified ectopic without intrauterine Status: Acute
== END 2022-10-06 08:33 | disposition home or self-care (01) ==
LOC: ANHED 21:34 → ANHOBPP 10-06 03:30
PROVIDERS: Emergency Medicine; Physician Assistant; Admitting Provider Obstetrics & Gynecology; Emergency Provider Emergency Medicine; Visit Provider Obstetrics & Gynecology
DX: Z32.01 Encounter for pregnancy test, result positive (principal); O36.80X0 Pregnancy with inconclusive fetal viability, not applicable or unspecified; O26.899 Other specified pregnancy related conditions, unspecified trimester; O46.90 Antepartum hemorrhage, unspecified, unspecified trimester; R10.30 Lower abdominal pain, unspecified; Z3A.00 Weeks of gestation of pregnancy not specified
CPT/HCPCS: 36415; 76801; 76817; 81001; 84702; 85014; 85018; 85025; 85461; 85610; 85730; 86850; 86900; 86901; 96374; 99285; G0378; G0379; J0131

== ENCOUNTER 2022-12-16 11:05 | Emergency (ER) | payer OTHER, SELFPAY ==
[2022-12-16 11:15] VITALS: BP 112/60; PULSE 82; RESP 16; TEMP 36.3; O2SAT 100
[2022-12-16 11:16] VITALS: BP 112/60; PULSE 82; RESP 16; TEMP 36.3; O2SAT 100
--- NOTE | 2022-12-16 11:53 | ED.GENADULT ---
HPI - General Adult General Chief complaint: Upper Respiratory Infection Stated complaint: Sore Throat/ Source: patient Mode of arrival: ambulatory Limitations: no limitations History of Present Illness HPI narrative: Patient presents for evaluation of upper respiratory symptoms for last 2 days. Symptoms include sinus congestion, scratchy throat and rhinorrhea. She has experience hot flashes but denies objective fever. No chills, nausea, vomiting, diarrhea. She is currently , 5 weeks gestation with her 1st appointment this coming Thursday. . Denies any abdominal pain or vaginal bleeding. She contacted her OBGYNs office to ask what medications she could take. They advised she could take benadryl and claritin. She is wondering whether there are any other therapies that would be beneficial. no recent sick contacts to her knowledge. Related Data Home Medications Medication Instructions Recorded Confirmed vits no.126-ferrous fum 1 tablet DAILY 12/16/22 12/16/22 28 mg iron-folic acid 800 mcg tablet (Classic ) Allergies Allergy/AdvReac Type Severity Reaction Status Date / Time No Known Allergies Allergy Verified 10/07/22 09:01 Review of Systems Review of Systems: CONSTITUTIONAL: Denies fever, chills, or sweats. EYES: Denies visual changes, redness, or discharge. ENT: reports rhinorrhea, nasal congestion, and a scratchy throat . CARDIOVASCULAR: Denies chest pain, palpitations, or edema. RESPIRATORY: Denies cough or dyspnea. GASTROINTESTINAL: Denies abdominal pain, nausea, vomiting, or diarrhea. GENITOURINARY: Denies dysuria or hematuria. SKIN: Denies rash or itching. MUSCULOSKELETAL: Denies back pain, joint pain, or myalgia. NEUROLOGIC: Denies headache, numbness, dizziness, or weakness. PSYCHIATRIC: Denies anxiety or depression. [facility] Past Medical History Medical History No significant medical problems Surgical History Surgical History History of tonsillectomy Family History Family History Other Family history non-contributory Social History Social History Smoking status: Never smoker Second hand tobacco smoke exposure: No Alcohol intake: current Alcohol use details: social Substance use: never Substance use type: does not use Living arrangements: with family Occupation/Education: unemployed Gender identity (if verbalized by the patient): Female Sexual Orientation (if Verbalized by the Patient): Straight or Heterosexual Spiritual care concerns: No Agree to blood products: Yes Exam Narrative: GENERAL: Well-appearing, well-nourished, and in no acute distress. HEAD: Normocephalic, atraumatic. EYES: PERRLA and EOMI. ENT: Nares clear, no rhinorrhea or epistaxis. Mucous membranes moist. Oropharynx without tonsillar hypertrophy exudate or other lesions. Bilateral TMs pearly zuleta nonbulging NECK: Supple. No adenopathy or masses. No carotid bruits or JVD CHEST: Clear to auscultation. No respiratory distress. No wheezes rales or rhonchi HEART: Regular rate and rhythm. No murmur heard. Normal peripheral pulses. ABDOMEN: Soft, nontender, nondistended, normal active bowel sounds. EXTREMITIES: Normal range of motion. No edema. SKIN: Warm, dry, no rash. NEURO: No focal deficits. Alert and oriented x3. PSYCH: Normal mood and affect. Course Course Emergency Course: This is a 22-year-old female who presented for evaluation of upper respiratory symptoms. Strep was negative. Exam is consistent with viral URI. She may take Tylenol, Claritin, Benadryl. Follow up with OBGYN this coming Thursday. Go to the ER for worsening symptoms. Patient in agreement with plan of care. Level of Care: Express
== END 2022-12-16 12:00 | disposition home or self-care (01) ==
PROVIDERS: Emergency Provider Nurse Practitioner; PCP Internal Medicine
DX: O99.511 Diseases of the respiratory system complicating pregnancy, first trimester (principal); J06.9 Acute upper respiratory infection, unspecified; Z3A.01 Less than 8 weeks gestation of pregnancy
CPT/HCPCS: 87081; 87880; 99213; G0463

== ENCOUNTER 2022-12-17 07:43 | Emergency (ER) | payer OTHER, SELFPAY ==
--- NOTE | ~2022-12-17 | US_ITS ---
EXAMINATION: US OB <=14 wk fetus w TV DATE: 12/17/2022 09:04 INDICATION: History of ectopic . TECHNIQUE: Real-time transabdominal and transvaginal obstetric ultrasound. FINDINGS: No prior studies for comparison. The uterus measures 8.3 x 4.7 x 6.3 cm. There is an intrauterine gestational sac, with pole ariana ntified. The crown rump length measures 0.28 cm, which correlates with a estimated gestational age o f 5 weeks 6 days. heart tones are identified measuring 131 BPM. There is a subchorionic hemor rhage measuring 1.4 x 0.5 x 0.4 cm. There is an irregular cystic mass of the right ovary measuring 2. 1 cm, likely an involuting corpus luteal cyst. Left ovary is unremarkable. Normal Doppler signal in b oth ovaries. IMPRESSION: 1. SL IUP with an EGA of 5 weeks, 6 days (EDC by current ultrasound of 08/13/2023). 2: Subchorionic hemorrhage. 3: Irregular cystic mass of the right ovary measuring 2.1 cm, most likely involuting corpus luteal c yst. Recommend attention to this on subsequent study. Reviewed, dictated and finalized at location B. [facility] IMPRESSION: 1. SL IUP with an EGA of 5 weeks, 6 days (EDC by current ultrasound of 08/13/20). 2: Subchorionic hemorrhage. 3: Irregular cystic mass of the right ovary measuring 2.1 cm, most likely invo luting corpus luteal cyst. Recommend attention to this on subsequent study.
[2022-12-17 07:58] VITALS: BP 118/73; PULSE 86; RESP 16; O2SAT 100
--- NOTE | 2022-12-17 08:12 | ED.GENADULT ---
HPI - General Adult General Chief complaint: Abdominal Pain Stated complaint: ABD PAIN, 5WKS PREG, HX ECTOPIC Time Seen by Provider: 12/17/22 07:47 History of Present Illness HPI narrative: 22-year-old female presenting to the emergency department for evaluation of right-sided abdominal pain. Patient had an ectopic approximately 2 months ago, patient follows up with Dr. Mendieta, patient reports she was treated with a shot . Patient did have a positive test on 12/08. Patient began having right-sided abdominal pain last night and progressed through this morning. Patient declined any medication for pain control. Patient denies any vaginal bleeding vaginal discharge. Related Data Home Medications Medication Instructions Recorded Confirmed vits no.126-ferrous fum 1 tablet DAILY 12/16/22 12/16/22 28 mg iron-folic acid 800 mcg tablet (Classic ) Allergies Allergy/AdvReac Type Severity Reaction Status Date / Time No Known Allergies Allergy Verified 10/07/22 09:01 Review of Systems Review of Systems: CONSTITUTIONAL: Denies fever, chills, or sweats. EYES: Denies visual changes, redness, or discharge. ENT: Denies rhinorrhea, congestion, sore throat, or otalgia. CARDIOVASCULAR: Denies chest pain, palpitations, or edema. RESPIRATORY: Denies cough or dyspnea. GASTROINTESTINAL: See HPI GENITOURINARY: Denies dysuria or hematuria. SKIN: Denies rash or itching. MUSCULOSKELETAL: Denies back pain, joint pain, or myalgia. NEUROLOGIC: Denies headache, numbness, or weakness. PSYCHIATRIC: Denies anxiety or depression. [facility] Past Medical History Medical History No significant medical problems Surgical History Surgical History History of tonsillectomy Family History Family History Other Family history non-contributory Social History Social History Smoking status: Never smoker Second hand tobacco smoke exposure: No Alcohol intake: current Alcohol use details: social Substance use: never Substance use type: does not use Living arrangements: with family Occupation/Education: unemployed Gender identity (if verbalized by the patient): Female Sexual Orientation (if Verbalized by the Patient): Straight or Heterosexual Spiritual care concerns: No Agree to blood products: Yes Exam Narrative: APPEARANCE: Well appearing, no pain, no distress, well-nourished. HEAD: normocephalic, atraumatic. EYES: PERRLA/EOMI, conjunctivae clear. NOSE: Normal no drainage NECK: Supple. No adenopathy, no masses. RESPIRATORY: Airway patent, respirations nonlabored. Clear to auscultation bilaterally, no rales, rhonchi, wheezing. CARDIOVASCULAR: Regular rate and rhythm without murmurs rubs or gallops. ABDOMINAL: Soft, nondistended, normal bowel sounds, right CVA and right-sided abdominal tenderness to palpation MUSCULOSKELETAL: Moves all extremities. Strength/ROM intact, No edema, No calf tenderness. NEURO: Alert. Cranial nerves II through XII intact. Grossly intact SKIN: Warm, dry. Normal Color Course Course Emergency Course: 22-year-old female reporting 5 weeks with history of ectopic. Beta-hCG, UA and ultrasound to rule out ectopic were ordered Patient denies any vaginal bleeding vaginal discharge. Patient is afebrile with no leukocytosis. Patient's CMP is similar to her baseline. Patient's UA showed no evidence of urinary tract infection. Ultrasound did show a single live intrauterine of 5 weeks and 6 days along with a subchorionic hemorrhage. I called to discuss the case with the patient's [employer]CH[employer] Dr. Mendieta and they are comfortable seeing the patient in clinic as follow-up. Patient and family were updated on the results of the wor
[2022-12-17 08:17] LABS: Basophils Percent Auto 0.6 % (0.2-1.2); Eosinophils Absolute Auto 0.1 K/mm3 (0-0.3); Eosinophils Percent Auto 2.7 % (0-4.4); Hematocrit 39.4 % (37.0-47.0); Hemoglobin 13.4 g/dL (12.0-15.0); Immature Granulocyte Absolute 0.01 K/mm3 (0.00-0.031); Immature Granulocyte Percent A 0.2 % (0-0.5); Lymphocytes Absolute Auto 1.76 K/mm3 (0.9-3.2); Lymphocytes Percent Auto 33.4 % (18.3-44.2); Mean Corpuscular Hemoglobin 29.4 pg (26-34); Mean Corpuscular Volume 86.4 fl (80-100); Mean Platelet Volume 10.7 fl (7.4-10.4); Monocytes Absolute Auto 0.5 K/mm3 (0.1-0.6); Monocytes Percent Auto 9.7 % (2.6-8.5); Neutrophils Absolute Auto 2.8 K/mm3 (1.3-6.7); Neutrophils Percent Auto 53.4 % (45.5-73.1); Platelet Count Result 233 k/mm3 (150-375); Red Blood Count 4.56 M/mm3 (4.2-5.4); Red Cell Distribution Width 12.2 % (11.5-14.5); White Blood Count 5.3 K/mm3 (4.5-10.0)
[2022-12-17 08:30] LABS: Alanine Aminotransferase 13 U/L (6-35); Albumin Level 4.6 g/dL (3.5-5.1); Alkaline Phosphatase 50 U/L (38-126); Anion Gap 6 mmol/L (8-16); Aspartate Amino Transferase 18 U/L (14-36); Bilirubin,Total 0.5 mg/dL (0.2-1.3); Blood Urea Nitrogen 7 mg/dL (7-17); Calcium 8.8 mg/dL (8.4-10.2); Carbon Dioxide 28 mmol/L (22-30); Chloride 102 mmol/L (98-107); Estimated CRCL calculation 120 ml/min; Estimated Glomerular Filt Rate > 60; Glucose 94 mg/dL (65-110); INR 1.1; Potassium 3.4 mmol/L (3.4-5.0); Prothrombin Time 13.4 Seconds (11.1-14.7); Sodium 136 mmol/L (137-145)
[2022-12-17 08:31] LABS: Partial Thromboplastin Time 28.5 SECONDS (22.3-36.8)
[2022-12-17 08:34] LABS: Appearance Urine Clear (Clear); Bilirubin Urine Negative (Negative); Blood Urine Negative (Negative); Color Urine Yellow (Yellow); Glucose Urine UA Negative (Negative); Ketones Urine Negative (Negative); Leukocyte Esterase Ur Negative LEU/UL (Negative); Nitrate Urine Negative (Negative); Protein Urine Negative (Negative); Specific Grav Ur 1.023 (1.001-1.035); pH Urine 5.5 (5.0-9.0)
[2022-12-17 08:48] LABS: Add Urine Microscopic? NO
[2022-12-17 10:22] VITALS: BP 116/70; PULSE 70; RESP 14; O2SAT 98
== END 2022-12-17 10:23 | disposition home or self-care (01) ==
PROVIDERS: Emergency Provider Emergency Medicine; PCP Internal Medicine
DX: O41.8X10 Other specified disorders of amniotic fluid and membranes, first trimester, not applicable or unspecified (principal); Z3A.01 Less than 8 weeks gestation of pregnancy
CPT/HCPCS: 36415; 76801; 76817; 80053; 81003; 81025; 84702; 85025; 85610; 85730; 99284

== ENCOUNTER 2023-01-08 14:42 | Emergency (ER) | payer OTHER, SELFPAY ==
[2023-01-08 14:50] VITALS: BP 111/51; PULSE 92; RESP 14; TEMP 36.6; O2SAT 100
--- NOTE | 2023-01-08 15:15 | ED.GENADULT ---
HPI - General Adult General Chief complaint: Ear Stated complaint: Headache/Right Ear Time Seen by Provider: 01/08/23 15:15 Source: patient, RN notes reviewed and old records reviewed Mode of arrival: ambulatory Limitations: no limitations History of Present Illness HPI narrative: 22-year-old female presents to the [facility] with complaints of a headache and right ear pain. Patient reports that she is 9 weeks Has an appointment tomorrow with Dr. Jones office Onset (ago): day(s) (1) Related Data Home Medications Medication Instructions Recorded Confirmed vits no.126-ferrous fum 1 tablet DAILY 12/16/22 01/08/23 28 mg iron-folic acid 800 mcg tablet (Classic ) aspirin 81 mg tablet,delayed 81 mg PO DAILY 01/08/23 01/08/23 release (Adult Low Dose Aspirin) Allergies Allergy/AdvReac Type Severity Reaction Status Date / Time No Known Allergies Allergy Verified 01/08/23 15:07 Review of Systems Review of Systems: All systems reviewed & are unremarkable except as noted in HPI and below Constitutional: Constitutional: Reports as per HPI and Reports headache(s) Eyes: Eyes: Reports no additional eye complaints ENT: Reports as per HPI and Reports otalgia (Right ear) Cardiovascular: Cardiovascular: Reports no additional cardiovascular complaints, Denies chest pain and Denies dyspnea Respiratory: Respiratory: Reports no additional respiratory complaints, Denies chest congestion, Denies cough and Denies dyspnea Gastrointestinal: Gastrointestinal: Reports no additional gastrointestinal complaints, Denies abdominal pain, Denies nausea and Denies vomiting Musculoskeletal: Musculoskeletal: Reports no additional musculoskeletal complaints Integumentary/Breasts: Skin/Breast: Reports system reviewed and no additional complaints, except as docu Neurologic: Reports system reviewed and no additional complaints, except as documented Psychiatric: Psychiatric: Reports no additional psychiatric complaints Allergic/Immunologic: Allergic/Immunologic: Reports no additional allergic/immunologic complaints PMF Past Medical History Medical History No significant medical problems Surgical History Surgical History History of tonsillectomy Family History Family History Other Family history non-contributory Social History Social History Smoking status: Never smoker Second hand tobacco smoke exposure: No Alcohol intake: current Alcohol use details: social Substance use: never Substance use type: does not use Living arrangements: with family Occupation/Education: unemployed Gender identity (if verbalized by the patient): Female Sexual Orientation (if Verbalized by the Patient): Straight or Heterosexual Spiritual care concerns: No Agree to blood products: Yes Comments At the time of my signature, I reviewed and agree with the nursing past medical, surgical, social, and family history. There is no relevant family history pertinent to the patient complaint. Exam Const: General: cooperative, healthy appearing, comfortable, no acute distress, well developed, alert and well nourished Nutritional Appearance: well nourished Orientation/consciousness: patient oriented x3 Limitations: no limitations HENMT: Head: normal to inspection Ears: hearing grossly normal bilaterally and external ears normal Face/Nose/Sinus: Normal external nose present, Normal nares present, Normal nasal mucous membranes and turbinates present and normal facial exam Face and sinus: normal facial exam Mouth: Yes Normal oral and palatal mucosa present, Yes lip normal and Yes moist mucous membranes Throat: posterior oropharynx normal and uvula midline Eyes: General: appearance normal, both
== END 2023-01-08 15:22 | disposition home or self-care (01) ==
PROVIDERS: Emergency Provider Nurse Practitioner; PCP Internal Medicine
DX: H65.01 Acute serous otitis media, right ear (principal); R51.9 Headache, unspecified
CPT/HCPCS: 99211; G0463

== ENCOUNTER 2023-04-10 23:38 | Emergency (ER) | payer OTHER, SELFPAY ==
[2023-04-10 23:41] VITALS: BP 112/54; PULSE 81; RESP 17; TEMP 36.1; O2SAT 100
[2023-04-11 01:49] VITALS: BP 112/73; PULSE 86; RESP 14; TEMP 36.4; O2SAT 100
--- NOTE | 2023-04-11 02:04 | ED.HA ---
HPI - Headache General Chief Complaint: Headache Stated Complaint: Migraine STACY, 23 weeks preg Time Seen by Provider: 04/11/23 01:47 History of Present Illness HPI Narrative: 22-year-old female who is currently 23 weeks here for evaluation of migraine headache. Patient has had a headache for the past 3 days. She been taking Tylenol throughout her with good relief of her symptoms but she is unable to control the headache at home. Her OB Dr. Mendieta prescribed Fioricet which she has been taking without relief, he is advised ED evaluation if she was no better. No nausea, vomiting, visual changes, leg swelling, abdominal pain or vaginal bleeding. No history of preeclampsia or complications with her pregnancies. Related Data Home Medications Medication Instructions Recorded Confirmed vits no.126-ferrous fum 1 tablet DAILY 12/16/22 01/08/23 28 mg iron-folic acid 800 mcg tablet (Classic ) aspirin 81 mg tablet,delayed 81 mg PO DAILY 01/08/23 01/08/23 release (Adult Low Dose Aspirin) Allergies Allergy/AdvReac Type Severity Reaction Status Date / Time No Known Allergies Allergy Verified 04/10/23 23:46 Review of Systems Review of Systems: Gen.: Denies fevers or chills Eyes: Denies eye pain or visual change ENT: Denies congestion Respiratory: Denies shortness of breath or cough CV: Denies chest pain or palpitations GI: Denies abdominal pain nausea, emesis or diarrhea denies burning, urgency, frequency or hematuria Musculoskeletal: Denies back pain or muscle pain Neuro: Reports headache. Denies numbness, tingling, weakness or focal weakness Skin: Denies rash Except as documented, all other systems reviewed and negative [facility] Past Medical History Medical History No significant medical problems Surgical History Surgical History History of tonsillectomy Family History Family History Other Family history non-contributory Social History Social History Smoking status: Never smoker Second hand tobacco smoke exposure: No Alcohol intake: current Alcohol use details: social Substance use: never Substance use type: does not use Living arrangements: with family Occupation/Education: unemployed Gender identity (if verbalized by the patient): Female Sexual Orientation (if Verbalized by the Patient): Straight or Heterosexual Spiritual care concerns: No Agree to blood products: Yes Exam Narrative: APPEARANCE: Well appearing, no pain in distress, well-nourished. Head: Normocephalic and atraumatic. EYES: PERRLA/EOMI, conjunctivae clear NOSE: No nasal drainage EARS: External ear normal in appearance THROAT: Oropharynx is clear. Mucous membranes are moist. NECK: Supple. No adenopathy, no masses. RESPIRATORY: Airway patent, respirations nonlabored. Clear to auscultation bilaterally, no rales, rhonchi, wheezing. CARDIOVASCULAR: Regular rate and rhythm without murmurs, rubs, or gallops. ABDOMINAL: Normoactive bowel sounds. Soft, nontender, nondistended. No rebound tenderness or guarding. MUSCULOSKELETAL: Extremities are warm and well-perfused. Moves all extremities well. No edema. NEURO: Normal speech. No focal neurologic deficits. SKIN: Skin is warm and dry. No rashes. PSYCHIATRIC: Normal affect/mood.. Course Vital Signs Vital signs: Vital Signs Temperature 96.9 F L 04/10/23 23:41 Pulse Rate 81 04/10/23 23:41 Respiratory Rate 17 04/10/23 23:41 Blood Pressure 112/54 L 04/10/23 23:41 Pulse Oximetry 100 04/10/23 23:41 Oxygen Delivery Room Air 04/10/23 23:41 Temperature 97.6 F 04/11/23 01:49 Pulse Rate 86 04/11/23 01:49 Respiratory Rate 14 04/11/23 01:49 Blood Pressure 112/73 06
[2023-04-11] MEDS: LACTATED RINGERS 1,000 ML 999 ML IV CONT (02:08)
[2023-04-11] MEDS: METOCLOPRAMIDE HCL INJ 10 MG/2 ML VIAL IV PUSH (02:09)
[2023-04-11] MEDS: diphenhydrAMINE HCl INJ 50 MG/ML VIAL 12.5 MG IV PUSH (02:10)
[2023-04-11 02:25] LABS: Appearance Urine Clear (Clear); Bacteria Urine None Seen /hpf; Bilirubin Urine Negative (Negative); Blood Urine Negative (Negative); Color Urine Yellow (Yellow); Glucose Urine UA Negative (Negative); Ketones Urine Negative (Negative); Leukocyte Esterase Ur Trace LEU/UL (Negative); Nitrate Urine Negative (Negative); Non Pathogenic Casts 0-2; Protein Urine Negative (Negative); RBC Urine 0-2 /hpf (0-2); Specific Grav Ur 1.015 (1.001-1.035); Squamous Epithelial Cell Urine Occasional /hpf (Few); WBC Urine 0-5 /hpf; pH Urine 7.5 (5.0-9.0)
[2023-04-11 02:41] LABS: Add Urine Microscopic? YES
[2023-04-11 03:22] VITALS: BP 112/68; PULSE 67; RESP 15; TEMP 36.6; O2SAT 100
== END 2023-04-11 03:23 | disposition home or self-care (01) ==
PROVIDERS: Emergency Provider Physician Assistant; PCP Internal Medicine
DX: O99.891 Other specified diseases and conditions complicating pregnancy (principal); G43.909 Migraine, unspecified, not intractable, without status migrainosus; Z3A.23 23 weeks gestation of pregnancy
CPT/HCPCS: 81001; 96361; 96374; 96375; 99284; J1200; J2765; J7120

== ENCOUNTER 2023-07-29 23:56 | Observation (INO) | payer OTHER, SELFPAY ==
--- NOTE | 2023-07-30 01:54 | OBADM ---
This patient, Lila Lira, admitted to the OB room Labor/Delivery/Recovery 106 for observation. Patient/family oriented to hospital policies and general routines including ID bracelet, bed and alarms, visiting hours, pain management, procedures, bathroom and other care routines, personal items, smoking policy, room service/diet, and visiting hours. Patient/Family are encouraged to report perceived risks to care and to ask questions if they do not understand what they are told or what they should do.
--- NOTE | 2023-07-31 16:39 | PM.OBTRLD ---
OB - Triage/Final Diagnosis Visit Information Date of evaluation: 07/30/23 Reason for evaluation: threatened labor Comments/Additional reasons for admission: I have assessed the risk for this patient, Lila Lira, and determined that she would benefit from observation care.
== END 2023-07-30 02:03 | disposition home or self-care (01) ==
PROVIDERS: Admitting Provider Obstetrics & Gynecology; PCP Internal Medicine; Visit Provider Obstetrics & Gynecology
DX: O47.9 False labor, unspecified (principal); Z3A.37 37 weeks gestation of pregnancy
CPT/HCPCS: 59025; G0378; G0379

== ENCOUNTER 2023-07-31 09:14 | Observation (INO) | payer OTHER, SELFPAY ==
[2023-07-31 10:58] VITALS: TEMP 36.8
--- NOTE | 2023-07-31 12:26 | OBADM ---
This patient, Lila Lira, admitted to the OB room Labor/Delivery/Recovery 104 for observation. Patient/family oriented to hospital policies and general routines including ID bracelet, bed and alarms, visiting hours, pain management, procedures, bathroom and other care routines, personal items, smoking policy, room service/diet, and visiting hours. Patient/Family are encouraged to report perceived risks to care and to ask questions if they do not understand what they are told or what they should do.
--- NOTE | 2023-08-03 13:25 | PM.OBTRLD ---
OB - Triage/Final Diagnosis Visit Information Date of evaluation: 07/31/23 Reason for evaluation: threatened labor Comments/Additional reasons for admission: I have assessed the risk for this patient, Lila Lira, and determined that she would benefit from observation care.
== END 2023-07-31 11:21 | disposition home or self-care (01) ==
PROVIDERS: Admitting Provider Obstetrics & Gynecology; PCP Internal Medicine; Visit Provider Obstetrics & Gynecology
DX: O47.1 False labor at or after 37 completed weeks of gestation (principal); Z3A.37 37 weeks gestation of pregnancy
CPT/HCPCS: G0378; G0379

== ENCOUNTER 2023-08-09 05:54 | Inpatient (IN) | payer OTHER, SELFPAY ==
[2023-08-09] VITALS (90 sets, daily range): BP systolic 76–153; BP diastolic 43–132; PULSE 60–197; RESP 16; TEMP 36.3–37; O2SAT 76–100; BMI 28.9
--- NOTE | 2023-08-09 06:12 | LDADM ---
This patient, Lila Lira, was admitted to Labor/Delivery/Recovery 105 on 08/09/23 at 05:54. Plans for labor, pain management and were discussed with patient. Patient/family oriented to hospital policies and general routines including ID bracelet, bed and alarms, visiting hours, pain management, procedures, bathroom and other care routines, personal items, smoking policy, room service/diet and guest tray routines, security routines, and visiting hours. Patient/Family are encouraged to report perceived risks to care and to ask questions if they do not understand what they are told or what they should do. See OBIX for further documentation.
[2023-08-09] MEDS: LACTATED RINGERS 1,000 ML 999 ML IV CONT ×2 (06:15→06:53)
[2023-08-09 06:25] LABS: Basophils Percent Auto 0.5 % (0.2-1.2); Eosinophils Absolute Auto 0.2 K/mm3 (0-0.3); Eosinophils Percent Auto 2.8 % (0-4.4); Hematocrit 33.1 % (37.0-47.0); Hemoglobin 10.3 g/dL (12.0-15.0); Immature Granulocyte Absolute 0.06 K/mm3 (0.00-0.031); Immature Granulocyte Percent A 0.8 % (0-0.5); Lymphocytes Absolute Auto 2.19 K/mm3 (0.9-3.2); Mean Corpuscular HGB Conc 31.1 g/dl (32-36); Mean Corpuscular Volume 83.6 fl (80-100); Mean Platelet Volume 12.1 fl (7.4-10.4); Monocytes Absolute Auto 0.8 K/mm3 (0.1-0.6); Monocytes Percent Auto 10.7 % (2.6-8.5); Neutrophils Absolute Auto 4.3 K/mm3 (1.3-6.7); Neutrophils Percent Auto 56.2 % (45.5-73.1); Platelet Count Result 130 k/mm3 (150-375); Red Blood Count 3.96 M/mm3 (4.2-5.4); Red Cell Distribution Width 13.9 % (11.5-14.5); White Blood Count 7.6 K/mm3 (4.5-10.0)
--- NOTE | 2023-08-09 07:05 | WPDANESEPP ---
Anes - Eval Pre Procedure Procedure: labor epidural Date/Time: 08/09/23 07:05 Surgeon: olvin Preop Diagnosis: pain during labor Pre Op Diagnosis: IOL Patient Data Age: 23 Gender: F Height: 1.6 m Weight: 74 kg Last Vital Signs Pulse 95 08/09/23 07:03 BP 113/66 08/09/23 07:03 Pulse Ox 100 08/09/23 07:02 O2 Del Method Room Air 08/09/23 06:12 Allergies Allergy/AdvReac Type Severity Reaction Status Date / Time No Known Allergies Allergy Verified 08/09/23 06:17 Home Medications Medication Instructions Recorded Confirmed Type vits no.126-ferrous fum 1 tablet DAILY 12/16/22 08/09/23 History 28 mg iron-folic acid 800 mcg tablet (Classic ) ferrous sulfate 325 mg (65 mg 325 mg PO DAILY 07/18/23 07/18/23 History iron) tablet valacyclovir 500 mg tablet 500 mg PO DAILY 08/09/23 08/09/23 History Laboratory Tests 08/09/23 06:20 WBC 7.6 K/mm3 (4.5-10.0) RBC 3.96 L M/mm3 (4.2-5.4) Hgb 10.3 L D g/dL (12.0-15.0) Hct 33.1 L % (37.0-47.0) MCV 83.6 fl (80-100) MCH 26.0 pg (26-34) MCHC 31.1 L g/dl (32-36) RDW 13.9 % (11.5-14.5) Plt Count 130 L k/mm3 (150-375) MPV 12.1 H fl (7.4-10.4) Immature Gran % (Auto) 0.8 H % (0-0.5) Neut % (Auto) 56.2 % (45.5-73.1) Lymph % (Auto) 29.0 % (18.3-44.2) Gl[place]ock % (Auto) 10.7 H % (2.6-8.5) Eos % (Auto) 2.8 % (0-4.4) Baso % (Auto) 0.5 % (0.2-1.2) Lymph # (Auto) 2.19 K/mm3 (0.9-3.2) Glascock # (Auto) 0.8 H K/mm3 (0.1-0.6) Eos # (Auto) 0.2 K/mm3 (0-0.3) Baso # (Auto) 0.0 K/mm3 (0.0-0.1) Abs Immat Gran (auto) 0.06 H K/mm3 (0.00-0.031) Absolute Neuts (auto) 4.3 K/mm3 (1.3-6.7) Absolute Nucleated RBC 0.0 K/mm3 (0.0-0.012) Nucleated RBC % 0.0 % (0.0-0.2) RPR Pending Patient hx anesthesia problems: none Family hx anesthesia problems: none Results Review: All pre-operative results and documents have been reviewed as part of the pre-operative evaluation. [facility], [facility] Past Medical History Medical History (Updated 08/09/23 @ 07:06 by Patrica Parrish CRNA) IUP (intrauterine ), incidental No significant medical problems Surgical History Surgical History History of tonsillectomy Family History Family History Other Family history non-contributory Social History Social History Smoking status: Never smoker Second hand tobacco smoke exposure: No Alcohol intake: current Alcohol use details: social Substance use: never Substance use type: does not use Lack of Transportation: No Lack of Food: Never True Current Housing: I Have Housing Concerned About Future Housing: No Difficulty Paying Gas/Electric Bills: No Difficulty Paying for Meds: No Currently Unemployed: No Education: High School Diploma/GED Difficulty w/ Childcare or Family Care: No Living arrangements: with family Occupation/Education: unemployed Gender identity (if verbalized by the patient): Female Sexual Orientation (if Verbalized by the Patient): Straight or Heterosexual Spiritual care concerns: No Agree to blood products: Yes Exam Day of Procedure 08/09/23 07:05
[2023-08-09] MEDS: OXYTOCIN 30 UNITS/NS 500 ML 30 UNITS/500 ML BAG IV CONT (07:51)
--- NOTE | 2023-08-09 08:22 | WPDOBADMIT ---
Obstetrics - Admit Note Admission Note: record reviewed. No pertinent additions to the history and/or any subsequent changes in the physical findings that are not consistent with the expected course of the were found. admit to LD, pt arrived 7 cm in active labor, SVE 8-9 cm AROM clear fluid,anticipate vaginal delivery Additions to the history and/or subsequent changes in the physical findings follow. None.
[2023-08-09] MEDS: miSOPROStol 200 MCG TABLET 1000 MCG (10:12)
--- NOTE | 2023-08-09 10:18 | PM.OBPRVD ---
OB - Delivery Note Procedure Delivery date: 08/09/23 Procedure: Delivery augmentation: Rupture of Membranes and Pitocin Delivery monitor: External FHT and External Uterine Route of delivery: Laceration Description: Superficial Delivery repair: vicryl Specimen: No Quantitative Blood Loss (ml): 200 Anesthesia type: Epidural [place] Baby Date of : 08/09/23 Time of : 10:05 Weeks of gestation at delivery: 39 gender: Male Weight (pounds): 8 Weight (ounces): 6 presentation: vertex position: Left Occiput Anterior Placenta delivery description: Spontaneous Cord Vessel Description: 3 Vessels and Delayed Cord Clamping score one minute: 9 score five minutes: 9 Narrative: mother and baby skin to skin in stable condition
[2023-08-09] MEDS: OXYTOCIN 30 UNITS/NS 500 ML 30 UNITS/500 ML BAG 125 UNITS IV CONT (10:39)
[2023-08-09] MEDS: ACETAMINOPHEN 325 MG TABLET 650 MG PO ×2 (18:09→23:55)
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
[2023-08-09] MEDS: IBUPROFEN 600 MG TABLET PO (23:55)
[2023-08-10 00:10] VITALS: BP 114/53; PULSE 68; RESP 16; TEMP 36.4; O2SAT 100
[2023-08-10 04:10] LABS: Hematocrit 32.6 % (37.0-47.0); Hemoglobin 10.1 g/dL (12.0-15.0)
[2023-08-10 07:30] VITALS: BP 112/69; PULSE 74; RESP 16; TEMP 36.1; O2SAT 100
--- NOTE | 2023-08-10 07:58 | PM.OBPNVD ---
OB - PN: Subj Subjective Date/time seen: 08/10/23 07:58 Interval history: pp day 1 doing well plan discharge tomorrow OB - PN: Obj Data Labs 08/10/23 03:47 Labs: Laboratory Results - last 24 hr 08/10/23 03:47 Hgb 10.1 L Hct 32.6 L OB - PN A/P Plan day: 1 Plan: routine care Time Spent With Patient Time: Total time spent is greater than 50% in coordination of care (as documented) at patient's floor/unit and/or counseling patient: Review of Systems Review of Systems: All systems reviewed & are unremarkable except as noted in HPI and below Exam Const: General: cooperative Resp: Effort & Inspection: normal respiratory effort Cardio: Rate: regular rate Rhythm: regular rhythm Skin: General skin exam: normal color Neuro: General: patient oriented x3 Psych: Appearance: grossly normal
[2023-08-10] MEDS: DOCUSATE SODIUM 100 MG CAPSULE PO (08:54)
[2023-08-10] MEDS: IBUPROFEN 600 MG TABLET PO ×2 (08:57→19:41)
[2023-08-10 11:11] LABS: Rapid Plasma Reagin Non-Reactive (NonReactive)
--- NOTE | 2023-08-10 14:23 | WPDANLDPN2 ---
Anes-Prog Note L&D Date/Time: 08/10/23 14:23 Comfortable throughout: labor and delivery Neuraxial method: epidural Epidural/Spinal procedure site: clean & non-tender Neuro status: Neuro function grossly intact. Cardiovascular status: normal Respiratory status: normal Airway patency: baseline Mental status: baseline Post-Op hydration status: normal Vital Signs: Last Vital Signs Temp 36.1 C L 08/10/23 07:30 Pulse 74 08/10/23 07:30 Resp 16 08/10/23 07:30 BP 112/69 08/10/23 07:30 Pulse Ox 100 08/10/23 07:30 O2 Del Method Room Air 08/10/23 08:54 Pain score (VAS): 2 Post-procedural complaints: none Patient feedback: Patient satisfied with anesthetic care.
[2023-08-10 19:45] VITALS: BP 111/64; PULSE 69; RESP 18; TEMP 36.6
[2023-08-11] MEDS: IBUPROFEN 600 MG TABLET PO (04:13)
[2023-08-11 07:40] VITALS: BP 107/69; PULSE 62; RESP 18; TEMP 36.6; O2SAT 100
--- NOTE | 2023-08-11 08:03 | PM.OBPNVD ---
OB - PN: Subj Subjective Date/time seen: 08/11/23 08:03 Interval history: pp day 2 doing well plan discharge today OB - PN: Obj Data Labs 08/10/23 03:47 Labs: Laboratory Results - last 24 hr 08/09/23 06:20 RPR Non-reactive OB - PN A/P Time Spent With Patient Time: Total time spent is greater than 50% in coordination of care (as documented) at patient's floor/unit and/or counseling patient: Review of Systems Review of Systems: All systems reviewed & are unremarkable except as noted in HPI and below Exam Const: General: cooperative, healthy appearing and comfortable Chest: Chest palpation & inspection: normal inspection of the chest Resp: Effort & Inspection: normal respiratory effort Cardio: Rate: regular rate Rhythm: regular rhythm GI: Inspection: normal to inspection Skin: General skin exam: normal color Neuro: General: patient oriented x3 Extrem: Right lower extremity: normal to inspection Left lower extremity: normal to inspection
--- NOTE | 2023-08-11 08:05 | P.DS_ITS ---
DS: Admitting Diagnosis Discharge Date 08/11/23 Admitting Diagnosis labor OB - DS: Summary OB Procedures : None OB Procedures Intrapartum: Spontaneous Vag Delivery OB Procedures: : None Time Spent with Patient Time attestation: Total time spent providing and/or coordinating discharge services: DS: Data Data Completed and Pending Labs on day of discharge: Labs from last 24 hours 08/09/23 06:20 RPR Non-reactive Discharge Plan Discharge Attending physician on discharge: Warren Mercado Discharging Clinician: Danii Hamilton Patient Disposition: Home, Self-Care Activity: pelvic rest Diet: regular Patient Instructions: Antibiotic Form Stand Alone Forms: General Discharge Information Follow-up/Referrals: Danii Hamilton, ALISSAM [Certified Nurse Policy Analyst] - 4 Weeks Discharge Medications: New ibuprofen 600 mg Tablet 600 mg PO Q6H PRN (Reason: Cramping) Qty: 30 0RF Continued Classic 28 mg iron- 800 mcg Tablet 1 tablet DAILY ferrous sulfate 325 mg (65 mg iron) Tablet 325 mg PO DAILY valacyclovir 500 mg tablet 500 mg PO DAILY Date of admission: 08/09/23 05:54 Primary Care Provider: Romy,Wilber Bob Admitting Provider: Bertha Mendieta Attending physician on admission: Bertha Mendieta Condition: Stable
[2023-08-11] MEDS: DOCUSATE SODIUM 100 MG CAPSULE PO (08:32)
[2023-08-12 09:27] VITALS: BP 107/64; PULSE 73; RESP 18; TEMP 37.1; O2SAT 100
--- NOTE | 2023-08-12 16:28 | P.PNOB_ITS ---
OB - Triage/Final Diagnosis Visit Information Date of evaluation: 08/09/23 Reason for evaluation: threatened labor Comments/Additional reasons for admission: I have assessed the risk for this patient, Lila Lira, and determined that she would benefit from observation care. Evaluation Laboratory results: Laboratory Tests 08/09/23 08/10/23 06:20 03:47 WBC 7.6 RBC 3.96 L Hgb 10.3 L D 10.1 L Hct 33.1 L 32.6 L MCV 83.6 MCH 26.0 MCHC 31.1 L RDW 13.9 Plt Count 130 L MPV 12.1 H Immature Gran % (Auto) 0.8 H Neut % (Auto) 56.2 Lymph % (Auto) 29.0 [place] % (Auto) 10.7 H Eos % (Auto) 2.8 Baso % (Auto) 0.5 Lymph # (Auto) 2.19 [place] # (Auto) 0.8 H Eos # (Auto) 0.2 Baso # (Auto) 0.0 Abs Immat Gran (auto) 0.06 H Absolute Neuts (auto) 4.3 Absolute Nucleated RBC 0.0 Nucleated RBC % 0.0 RPR Non-reactive Blood Type O Positive Antibody Screen Negative Vital signs: Vital Signs - 24 hr 08/12/23 09:27 Temperature 37.1 C Pulse Rate 73 Respiratory Rate 18 Blood Pressure 107/64 Pulse Oximetry 100
== END 2023-08-11 09:37 | disposition home or self-care (01) | DRG 560 ==
LOC: ANHLDR 12:25 → ANHOB2 13:09
PROVIDERS: Admitting Provider Obstetrics & Gynecology; PCP Internal Medicine; Referring Provider Advanced Practice Midwife; Visit Provider Obstetrics & Gynecology
DX: O40.3XX0 Polyhydramnios, third trimester, not applicable or unspecified (principal); Z37.0 Single live birth; O70.0 First degree perineal laceration during delivery; Z3A.39 39 weeks gestation of pregnancy
CPT/HCPCS: 36415; 85014; 85018; 85025; 86592; 86850; 86900; 86901; A9270; J2590; J2795; J7120

== ENCOUNTER 2023-12-18 09:16 | Emergency (ER) | payer OTHER, SELFPAY ==
--- NOTE | 2023-12-18 09:18 | ED.URI ---
HPI - URI/Sore Throat General Chief Complaint: Upper Respiratory Infection Stated Complaint: Sinus Time Seen by Provider: 12/18/23 09:18 Source: patient Mode of arrival: ambulatory Limitations: no limitations History of Present Illness HPI Narrative: Patient is a 23-year-old female who presents with 3 days of sinus congestion, headache and body aches. Denies any sore throat, cough, fever, chills, nausea, vomiting, diarrhea. 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 Related Data Home Medications Medication Instructions Recorded Confirmed No Home Medications 12/18/23 12/18/23 Allergies Allergy/AdvReac Type Severity Reaction Status Date / Time No Known Allergies Allergy Verified 12/18/23 09:29 Review of Systems Review of Systems: All systems reviewed & are unremarkable except as noted in HPI and below Constitutional: Constitutional: Reports body ache(s), Denies chills, Reports fatigue, Denies fever(s), Reports headache(s), Denies malaise and Denies weakness Eyes: Eyes: Denies blurry vision, Denies itchy eyes and Denies loss of vision ENT: Denies otalgia, Denies headache(s), Reports nasal congestion, Denies sinus pain and Denies sore throat Cardiovascular: Cardiovascular: Denies chest pain, Denies irregular heart rhythm and Denies dyspnea Respiratory: Respiratory: Denies cough and Denies dyspnea Gastrointestinal: Gastrointestinal: Denies abdominal pain, Denies diarrhea, Denies nausea and Denies vomiting Musculoskeletal: Musculoskeletal: Denies back pain, Denies myalgias and Denies arthralgias Integumentary/Breasts: Skin/Breast: Denies pruritus and Denies rash Neurologic: Reports headache(s), Denies loss of vision and Denies weakness Psychiatric: Psychiatric: Reports no additional psychiatric complaints Endocrine: Endocrine: Reports fatigue Allergic/Immunologic: Allergic/Immunologic: Denies itchy eyes PMFSH Past Medical History Medical History IUP (intrauterine ), incidental No significant medical problems Surgical History Surgical History History of tonsillectomy Family History Family History Other Family history non-contributory Social History Social History Smoking status: Never smoker Second hand tobacco smoke exposure: No Alcohol intake: current Alcohol use details: social Substance use: never Substance use type: does not use Lack of Transportation: No Lack of Food: Never True Current Housing: I Have Housing Concerned About Future Housing: No Difficulty Paying Gas/Electric Bills: No Difficulty Paying for Meds: No Currently Unemployed: No Education: High School Diploma/GED Difficulty w/ Childcare or Family Care: No Living arrangements: with family Occupation/Education: unemployed Gender identity (if verbalized by the patient): Female Sexual Orientation (if Verbalized by the Patient): Straight or Heterosexual Spiritual care concerns: No Agree to blood products: Yes Comments At time of signature, agree with nursing past medical, surgical, social and family history. There is no relevant family history pertinent to the presenting complaint. Exam Const: General: cooperative, healthy appearing, comfortable, no acute distress and well nourished Nutritional Appearance: well nourished Orientation/consciousness: patient oriented x3 Limitations: no limitations HENMT: Head: normal to inspection, normocephalic and atraumatic Ears: hearing grossly normal bilaterally, external ears normal, TM's normal bilaterally, EAC's normal and no periauricular adenopathy Face/Nose/Sinus: Normal external nose present, Abnormal mucous membranes and turbinates present erythematous bilateral and diffuse, normal facial exam, sinuses nontender and face symmet
[2023-12-18 09:28] VITALS: BP 109/62; PULSE 99; RESP 16; TEMP 37.1; O2SAT 100
== END 2023-12-18 09:50 | disposition home or self-care (01) ==
PROVIDERS: Emergency Provider Nurse Practitioner Family; PCP Internal Medicine
DX: J10.1 Influenza due to other identified influenza virus with other respiratory manifestations (principal); Z20.822 Contact with and (suspected) exposure to COVID-19
CPT/HCPCS: 87426; 87804; 99213; G0463

== ENCOUNTER 2024-02-02 14:24 | Emergency (ER) | payer OTHER, SELFPAY ==
[2024-02-02 14:28] VITALS: BP 106/58; PULSE 74; RESP 16; O2SAT 100
--- NOTE | 2024-02-02 14:39 | ED.GENADULT ---
HPI - General Adult General Chief complaint: Nausea/Vomiting/Diarrhea Stated complaint: n/v/d Time Seen by Provider: 02/02/24 14:26 History of Present Illness HPI narrative: 23-year-old female presenting to the emergency department for evaluation nausea vomiting diarrhea started last night. Patient does complain body aches and fatigue. Related Data Allergies Allergy/AdvReac Type Severity Reaction Status Date / Time No Known Allergies Allergy Verified 12/18/23 09:29 Review of Systems Review of Systems: All systems reviewed & are unremarkable except as noted in HPI and below PMFSH Past Medical History Medical History IUP (intrauterine ), incidental No significant medical problems Surgical History Surgical History History of tonsillectomy Family History Family History Other Family history non-contributory Social History Social History Smoking status: Never smoker Second hand tobacco smoke exposure: No Alcohol intake: current Alcohol use details: social Substance use: never Substance use type: does not use Lack of Transportation: No Lack of Food: Never True Current Housing: I Have Housing Concerned About Future Housing: No Difficulty Paying Gas/Electric Bills: No Difficulty Paying for Meds: No Currently Unemployed: No Education: High School Diploma/GED Difficulty w/ Childcare or Family Care: No Living arrangements: with family Occupation/Education: unemployed Gender identity (if verbalized by the patient): Female Sexual Orientation (if Verbalized by the Patient): Straight or Heterosexual Spiritual care concerns: No Agree to blood products: Yes Exam Narrative: APPEARANCE: Fatigued-appearing HEAD: normocephalic, atraumatic. EYES: PERRLA/EOMI, conjunctivae clear. NOSE: Normal no drainage EARS:TMS clear with good light reflex. THROAT: Pharynx clear, no exudate. NECK: Supple. No adenopathy, no masses. RESPIRATORY: Airway patent, respirations nonlabored. Clear to auscultation bilaterally, no rales, rhonchi, wheezing. CARDIOVASCULAR: Regular rate and rhythm without murmurs rubs or gallops. ABDOMINAL: Soft, nontender, nondistended, normal bowel sounds MUSCULOSKELETAL: Moves all extremities. Strength/ROM intact, No edema, No calf tenderness. NEURO: Alert. Cranial nerves II through XII intact. Good gait. Good coordination SKIN: Warm, dry. Normal Color Course Course Emergency Course: Patient felt improved with treatment and was discharged home Vital Signs Vital signs: Vital Signs Pulse Rate 74 02/02/24 14:28 Respiratory Rate 16 02/02/24 14:28 Blood Pressure 106/58 L 02/02/24 14:28 Pulse Oximetry 100 02/02/24 14:28 Temperature 97.8 F 02/02/24 17:31 Pulse Rate 64 02/02/24 17:31 Respiratory Rate 16 02/02/24 17:31 Blood Pressure 100/73 02/02/24 17:31 Pulse Oximetry 100 02/02/24 17:31 Medical Decision Making MDM Narrative Medical decision making narrative: 23-year-old female presenting to the emergency department for evaluation of nausea vomiting and diarrhea. On re-evaluation patient states she feels significantly improved. Patient had minimal tenderness to palpation. Patient was afebrile but does have a leukocytosis, no acute abnormalities CMP UA showed no significant evidence of infection patient was negative for influenza and COVID. Patient was advised to follow a clear liquid diet for the next 1-3 days and is provided Zofran for nausea control. Differential Diagnosis Differential Diagnosis: COVID, flu, RSV, influenza, gastroenteritis, dehydration, cannabinoid hyperemesis syndrome Vital Signs Vital Signs: Vital Signs Pulse Rate 74 02/02/24 14:28 Respiratory Rate 16 02/02/24 14
[2024-02-02 14:40] LABS: Basophils Absolute Auto 0.1 K/mm3 (0.0-0.1); Basophils Percent Auto 0.3 % (0.2-1.2); Eosinophils Absolute Auto 0.2 K/mm3 (0-0.3); Eosinophils Percent Auto 1.1 % (0-4.4); Hematocrit 45.8 % (37.0-47.0); Immature Granulocyte Absolute 0.19 K/mm3 (0.00-0.031); Lymphocytes Absolute Auto 2.09 K/mm3 (0.9-3.2); Lymphocytes Percent Auto 11.1 % (18.3-44.2); Mean Corpuscular HGB Conc 32.8 g/dl (32-36); Mean Corpuscular Hemoglobin 27.8 pg (26-34); Mean Corpuscular Volume 84.8 fl (80-100); Mean Platelet Volume 11.4 fl (7.4-10.4); Monocytes Absolute Auto 1.3 K/mm3 (0.1-0.6); Monocytes Percent Auto 6.8 % (2.6-8.5); Neutrophils Absolute Auto 15.1 K/mm3 (1.3-6.7); Neutrophils Percent Auto 79.7 % (45.5-73.1); Platelet Count Result 271 k/mm3 (150-375); Red Cell Distribution Width 12.4 % (11.5-14.5); White Blood Count 18.9 K/mm3 (4.5-10.0)
[2024-02-02 14:48] LABS: Alanine Aminotransferase 14 U/L (6-35); Albumin Level 5.2 g/dL (3.5-5.1); Alkaline Phosphatase 65 U/L (38-126); Anion Gap 15 mmol/L (4-12); Aspartate Amino Transferase 19 U/L (14-36); Bilirubin,Total 0.8 mg/dL (0.2-1.3); Blood Urea Nitrogen 13 mg/dL (7-17); Calcium 9.8 mg/dL (8.4-10.2); Carbon Dioxide 21 mmol/L (22-30); Chloride 105 mmol/L (98-107); Estimated Glomerular Filt Rate > 60; Glucose 150 mg/dL (65-110); Lipase 124 U/L (23-300); Potassium 3.4 mmol/L (3.4-5.0); Sodium 141 mmol/L (137-145)
[2024-02-02 15:00] VITALS: BP 102/68; PULSE 72; RESP 16; TEMP 36.4; O2SAT 100
[2024-02-02 15:14] LABS: Influenza A QL RT-PCR Negative (Negative); Influenza B QL RT-PCR Negative (Negative); SARS-CoV-2 RNA PCR Negative (Negative)
[2024-02-02] MEDS: SODIUM CHLORIDE 0.9% IV 1,000 ML 999 ML IV CONT (15:27)
[2024-02-02 16:00] VITALS: BP 115/64; BP 116/62; PULSE 64; PULSE 68; RESP 14; RESP 16; TEMP 36.6; O2SAT 100
[2024-02-02 16:04] LABS: Appearance Urine Cloudy (Clear); Bacteria Urine Rare /hpf; Bilirubin Urine Negative (Negative); Blood Urine Negative (Negative); Color Urine Dark Yellow (Yellow); Glucose Urine UA Negative (Negative); Hyaline Casts Urine Present /lpf; Ketones Urine Trace mg/dL (Negative); Leukocyte Esterase Ur Trace LEU/UL (Negative); Need Manual Microscopic Reviewed; Nitrate Urine Negative (Negative); Non Pathogenic Casts >20; Protein Urine 2+ mg/dL (Negative); RBC Urine 0-2 /hpf (0-2); Specific Grav Ur 1.023 (1.001-1.035); Squamous Epithelial Cell Urine Few /hpf (Few); pH Urine 5.5 (5.0-9.0)
[2024-02-02 16:05] LABS: Add Urine Microscopic? YES
[2024-02-02 16:31] VITALS: BP 93/77; PULSE 66; RESP 14; TEMP 36.6; O2SAT 100
[2024-02-02 17:01] VITALS: BP 110/71; PULSE 62; RESP 16; TEMP 36.6; O2SAT 100
[2024-02-02 17:31] VITALS: BP 100/73; PULSE 64; RESP 16; TEMP 36.6; O2SAT 100
[2024-02-02] MEDS: BELLADONNA ALK/PHENOB ELIX 10 ML, MAG HYDROX/ALUMINUM HYD/SIMETH 30 ML, LIDOCAINE HCL 2... PO (17:56)
== END 2024-02-02 18:17 | disposition home or self-care (01) ==
PROVIDERS: Emergency Provider Emergency Medicine; PCP Internal Medicine
DX: R11.2 Nausea with vomiting, unspecified (principal); Z20.822 Contact with and (suspected) exposure to COVID-19
CPT/HCPCS: 36415; 80053; 81001; 81025; 83690; 85025; 87086; 87088; 87636; 96360; 99283; A9270; J7030

== ENCOUNTER 2024-05-10 17:05 | Emergency (ER) | payer OTHER, SELFPAY ==
[2024-05-10 17:40] VITALS: BP 103/58; PULSE 90; RESP 18; TEMP 36.8; O2SAT 97
--- NOTE | 2024-05-10 17:55 | ED.SKABFB ---
HPI - Skin/Abscess/Foreign Bdy General Chief complaint: Skin/Abscess/Foreign Body Stated complaint: Rash On Lips Time Seen by Provider: 05/10/24 17:40 Source: patient History of Present Illness HPI narrative: Patient presents to express care with complaints of blisters to the upper lip. She reports that she had her makeup done approximately 1 week ago, began to notice blistering to the bilateral upper lip the next day. She reports that she has been putting Vaseline on the affected area with fair results, the blistering has not spread. She denies any pain. There is minimal swelling. She is able to talk, manage own secretions. No shortness of breath. There is no swelling elsewhere. She reports that she used a homeopathic lipstick with natural ingredients, she is unsure exactly what was in there. Voices no other concerns or complaints today Related Data Allergies Allergy/AdvReac Type Severity Reaction Status Date / Time No Known Allergies Allergy Verified 05/10/24 17:39 Review of Systems Review of Systems: All systems reviewed & are unremarkable except as noted in HPI and below Constitutional: Constitutional: Reports no additional constitutional complaints ENT: Reports system reviewed and no additional complaints, except as documented and Reports lip swelling Cardiovascular: Cardiovascular: Reports no additional cardiovascular complaints Respiratory: Respiratory: Reports no additional respiratory complaints Gastrointestinal: Gastrointestinal: Reports no additional gastrointestinal complaints PMFSH Past Medical History Medical History IUP (intrauterine ), incidental No significant medical problems Surgical History Surgical History History of tonsillectomy Family History Family History Other Family history non-contributory Social History Social History Smoking status: Never smoker Second hand tobacco smoke exposure: No Alcohol intake: current Alcohol use details: social Substance use: never Substance use type: does not use Lack of Transportation: No Lack of Food: Never True Current Housing: I Have Housing Concerned About Future Housing: No Difficulty Paying Gas/Electric Bills: No Difficulty Paying for Meds: No Currently Unemployed: No Education: High School Diploma/GED Difficulty w/ Childcare or Family Care: No Living arrangements: with family Occupation/Education: unemployed Gender identity (if verbalized by the patient): Female Sexual Orientation (if Verbalized by the Patient): Straight or Heterosexual Spiritual care concerns: No Agree to blood products: Yes Exam Const: General: cooperative, no acute distress, alert and awake Orientation/consciousness: oriented to person, oriented to place and oriented to time HENMT: Head: normal to inspection Mouth: Yes tongue normal Mouth/tongue images: 1. small blisters and mild swelling Teeth and gingiva: dentition normal Throat: posterior oropharynx normal Neck: Neck: normal visual inspection and full ROM Resp: Effort & Inspection: normal respiratory effort and able to speak in complete sentences Auscultation: clear to auscultation bilaterally, no crackles, no rales, no rhonchi and no wheezes Cardio: Palpation: normal PMI Rate: regular rate Rhythm: regular rhythm Heart sounds: S1 normal heart sound present and S2 normal heart sound present Neuro: General: oriented to person, oriented to place and oriented to time Cranial nerves: Yes CN's II-XII intact bilaterally Psych: Appearance: grossly normal Thought process: Normal thought process present Insight: Good insight present (Psych) Judgement: Good judgement present (Psych) Course Course Level of Care: Express Care Visi
== END 2024-05-10 18:05 | disposition home or self-care (01) ==
PROVIDERS: Emergency Provider Nurse Practitioner Family; PCP Internal Medicine
DX: T78.40XA Allergy, unspecified, initial encounter (principal); S00.521A Blister (nonthermal) of lip, initial encounter
CPT/HCPCS: 99211; G0463

== ENCOUNTER 2024-06-20 09:31 | Emergency (ER) | payer OTHER, SELFPAY ==
[2024-06-20 09:50] VITALS: BP 111/75; PULSE 92; RESP 16; TEMP 37.4; O2SAT 99
--- NOTE | 2024-06-20 09:53 | ED.EAR ---
HPI - Ear Problem General Chief complaint: Ear Stated complaint: left ear blocked Time Seen by Provider: 06/20/24 09:53 Source: patient, RN notes reviewed and old records reviewed Mode of arrival: ambulatory Limitations: no limitations History of Present Illness HPI Narrative: Patient presents with complaints of left ear pain. She reports pain has been present for couple of days. Initially it felt as though the ear was ?blocked?. Now she actually has some pain. Denies any fever, chills, sweats. No runny nose or sore throat. No other concerns today. She has not been taking anything for her symptoms Related Data Home Medications Medication Instructions Recorded Confirmed sertraline 25 mg tablet 25 mg PO DAILY 06/20/24 06/20/24 valacyclovir 500 mg tablet 500 mg PO BID 06/20/24 06/20/24 Allergies Allergy/AdvReac Type Severity Reaction Status Date / Time No Known Allergies Allergy Verified 06/20/24 09:33 [facility] Past Medical History Medical History IUP (intrauterine ), incidental No significant medical problems Surgical History Surgical History History of tonsillectomy Family History Family History Other Family history non-contributory Social History Social History Smoking status: Never smoker Second hand tobacco smoke exposure: No Alcohol intake: current Alcohol use details: social Substance use: never Substance use type: does not use Lack of Transportation: No Lack of Food: Never True Current Housing: I Have Housing Concerned About Future Housing: No Difficulty Paying Gas/Electric Bills: No Difficulty Paying for Meds: No Currently Unemployed: No Education: High School Diploma/GED Difficulty w/ Childcare or Family Care: No Living arrangements: with family Occupation/Education: unemployed Gender identity (if verbalized by the patient): Female Sexual Orientation (if Verbalized by the Patient): Straight or Heterosexual Spiritual care concerns: No Agree to blood products: Yes Exam Const: General: cooperative, no acute distress, alert and awake Orientation/consciousness: oriented to person, oriented to place and oriented to time HENMT: Head: normal to inspection Ears: TM's normal bilaterally and Abnormal EAC present erythema on the left, edema on the left and EAC tenderness on the left Mouth: Yes moist mucous membranes Throat: posterior oropharynx normal Resp: Effort & Inspection: normal respiratory effort and able to speak in complete sentences Auscultation: clear to auscultation bilaterally, no crackles, no rales, no rhonchi and no wheezes Cardio: Palpation: normal PMI Rate: regular rate Rhythm: regular rhythm Heart sounds: S1 normal heart sound present and S2 normal heart sound present Neuro: General: oriented to person, oriented to place and oriented to time Cranial nerves: Yes CN's II-XII intact bilaterally Psych: Appearance: grossly normal Thought process: Normal thought process present Insight: Good insight present (Psych) Judgement: Good judgement present (Psych) Course Course Level of Care: Express Care Visit Vital Signs Vital signs: Vital Signs Temperature 99.3 F 06/20/24 09:50 Pulse Rate 92 06/20/24 09:50 Respiratory Rate 16 06/20/24 09:50 Blood Pressure 111/75 06/20/24 09:50 Pulse Oximetry 99 06/20/24 09:50 Oxygen Delivery Room Air 06/20/24 09:50 Temperature 99.3 F 06/20/24 09:50 Pulse Rate 92 06/20/24 09:50 Respiratory Rate 16 06/20/24 09:50 Blood Pressure 111/75 06/20/24 09:50 Pulse Oximetry 99 06/20/24 09:50 Oxygen Delivery Room Air 06/20/24 09:50 Medical Decision Making [facility] Narrative Medical decision making narrative: Exam consistent with otitis
== END 2024-06-20 10:10 | disposition home or self-care (01) ==
PROVIDERS: Emergency Provider Nurse Practitioner Family
DX: H60.332 Swimmer's ear, left ear (principal)
CPT/HCPCS: 99213; G0463

== ENCOUNTER 2024-06-24 13:22 | Emergency (ER) | payer OTHER, SELFPAY ==
[2024-06-24 13:34] VITALS: BP 108/70; PULSE 78; RESP 16; TEMP 37.1; O2SAT 100
[2024-06-24 13:39] VITALS: BP 108/70; PULSE 78; RESP 16; TEMP 37.1; O2SAT 100
--- NOTE | 2024-06-24 13:39 | ED.HA ---
HPI - Headache General Chief Complaint: Headache Stated Complaint: STACY Time Seen by Provider: 06/24/24 13:23 Source: patient Mode of arrival: ambulatory Limitations: no limitations History of Present Illness HPI Narrative: Lila is a 24-year-old female patient presenting to the clinic today with complaints of a headache that started around 10:00 a.m. this morning. States the headache started to the mid forehead and then radiated down the right side of her head. Denies any photosensitivity or nausea. Did state that she developed epistaxis when the headache got worse. Denies any epistaxis at this time. Blood pressure is 108/70 in the clinic today. Denies any history of hypertension or migraine headaches. Denies any visual changes, dizziness, chest pain, or shortness breath. Related Data Allergies Allergy/AdvReac Type Severity Reaction Status Date / Time No Known Allergies Allergy Verified 06/24/24 13:34 Review of Systems Review of Systems: Pertinent positives per HPI. Patient denies any fever, chills, rash, visual changes, dizziness, cough, runny nose, sore throat, shortness of breath, chest pain, palpitations, nausea, vomiting, diarrhea, constipation, abdominal pain, or any urinary issues. [facility] Past Medical History Medical History IUP (intrauterine ), incidental No significant medical problems Surgical History Surgical History History of tonsillectomy Family History Family History Other Family history non-contributory Social History Social History Smoking status: Never smoker Second hand tobacco smoke exposure: No Alcohol intake: current Alcohol use details: social Substance use: never Substance use type: does not use Lack of Transportation: No Lack of Food: Never True Current Housing: I Have Housing Concerned About Future Housing: No Difficulty Paying Gas/Electric Bills: No Difficulty Paying for Meds: No Currently Unemployed: No Education: High School Diploma/GED Difficulty w/ Childcare or Family Care: No Living arrangements: with family Occupation/Education: unemployed Gender identity (if verbalized by the patient): Female Sexual Orientation (if Verbalized by the Patient): Straight or Heterosexual Spiritual care concerns: No Agree to blood products: Yes Comments At the time of my signature, I reviewed and agree with the nursing past medical, surgical, social, and family history. There is no relevant family history pertinent to the patient complaint. Exam Narrative: General: Well-developed, well nourished, in no apparent distress Head: Normocephalic, atraumatic Eyes: Pupils equally round and reactive to light bilaterally, EOM intact, sclera and conjunctive clear, no discharge, lids normal Ears: TMs intact and clear, ear canals clear, no drainage, grossly hearing normal. Nose: Nares patent, no discharge, no inflammation, no sinus tenderness. No active epistaxis or sign of previous anterior/posterior bleed Mouth: Oropharynx without lesions or masses, good dentition, MMM. Tongue midline, even rise and fall of uvula Neck: Supple, trachea midline, no enlargement of anterior or posterior cervical nodes, no thyroid masses or goiter palpable. Cardio: Regular rate and rhythm, s1 and s2 normal, no murmur appreciated. Resp: Clear to auscultation bilaterally anteriorly and posteriorly, no rhonchi, rales, wheezing or rubs Musculoskeletal: No deformity, non-tender to palpation, grossly normal range of motion, muscle strength strong and equal, peripheral pulse strong, no edema, no cyanosis, normal gait and station Neuro: Alert and oriented x4 with normal speech, no focal deficits, cranial nerves I through XII intact, mus
[2024-06-24] MEDS: ACETAMINOPHEN 500 MG TABLET 1000 MG PO (13:44)
[2024-06-24] MEDS: diphenhydrAMINE HCl CAP 25 MG CAPSULE 50 MG PO (13:45)
== END 2024-06-24 13:58 | disposition home or self-care (01) ==
PROVIDERS: Emergency Provider Nurse Practitioner Family
DX: R04.0 Epistaxis (principal); R51.9 Headache, unspecified
CPT/HCPCS: 99213; A9270; G0463

== ENCOUNTER 2025-02-21 08:39 | Emergency (ER) | payer OTHER, SELFPAY ==
--- NOTE | 2025-02-21 08:40 | ED.URI ---
HPI - URI/Sore Throat General Chief Complaint: Upper Respiratory Infection Stated Complaint: Sore Throat Time Seen by Provider: 02/21/25 08:40 Source: patient Mode of arrival: ambulatory Limitations: no limitations History of Present Illness HPI Narrative: Lila is a 24-year-old female patient presenting to the clinic today with complaints sore throat, nasal congestion, and right ear pain x1 day. History of tonsillectomy. She denies any fevers, chills, body aches. States that she has lot of congestion in the right ear and is unable to hear. Related Data Home Medications ?Medication ?Instructions ?Recorded ?Confirmed ?Last Taken ?Type No Home Medications 02/21/25 02/21/25 Unknown History Allergies Allergy/AdvReac Type Severity Reaction Status Date / Time No Known Allergies Allergy Verified 02/21/25 08:51 Review of Systems Review of Systems: Pertinent positives per HPI. Patient denies any fever, chills, rash, headache, visual changes, dizziness, shortness of breath, chest pain, palpitations, nausea, vomiting, diarrhea, constipation, abdominal pain, or any urinary issues. [facility] Past Medical History Medical History IUP (intrauterine ), incidental No significant medical problems Surgical History Surgical History History of tonsillectomy Family History Family History Other Family history non-contributory Social History Social History Smoking status: Never smoker Second hand tobacco smoke exposure: No Alcohol intake: current Alcohol use details: social Substance use: never Substance use type: does not use Lack of Transportation: No Lack of Food: Never True Current Housing: I Have Housing Concerned About Future Housing: No Difficulty Paying Gas/Electric Bills: No Difficulty Paying for Meds: No Currently Unemployed: No Education: High School Diploma/GED Difficulty w/ Childcare or Family Care: No Living arrangements: with family Occupation/Education: unemployed Gender identity (if verbalized by the patient): Female Sexual Orientation (if Verbalized by the Patient): Straight or Heterosexual Spiritual care concerns: No Agree to blood products: Yes Comments At the time of my signature, I reviewed and agree with the nursing past medical, surgical, social, and family history. There is no relevant family history pertinent to the patient complaint. Exam Narrative: General: Well-developed, well nourished, in no apparent distress Head: Normocephalic, atraumatic Eyes: Pupils equally round and reactive to light bilaterally, EOM intact, sclera and conjunctive clear, no discharge, lids normal Ears: TMs intact and congested, ear canals clear, no drainage, grossly hearing normal. Nose: Nares patent, clear nasal discharge, no inflammation, no sinus tenderness. Mouth: Oral pharynx without lesions or masses, good dentition, MMM. Tonsils surgically absent, postnasal drip Neck: Supple, trachea midline, no enlargement of anterior or posterior cervical nodes, no thyroid masses or goiter palpable. Cardio: Regular rate and rhythm, s1 and s2 normal, no murmur appreciated. Resp: Clear to auscultation bilaterally, no rhonchi, rales, wheezing or rubs Course Course Emergency Course: Portions of this record may have been created with voice recognition software. Level of Care: Express Care Visit Vital Signs Vital signs: Vital signs reviewed MDM - URI/Sore Throat MDM Narrative Medical decision making narrative: At the time of visit patient is resting comfortably on the exam table. Patient appears to be nontoxic. Labs: Strep test was performed and was negative in the clinic today. We will send strep for culture. Plan: I suspect patient has eustachian tube dysfunction, pharyngitis/postnasal drip/URI. Supportive measures were discussed with the patient and they voiced understanding discharge instructions and agrees to treatment plan. Return precautions reviewed Differential Diagnosis Differential diagnosis: Likely upper respiratory infection, otitis media, sinusitis, viral infection, bronchitis, influenza, pharyngitis and other (COVID) Discharge Plan Discharge Clinical Impression: PND (post-nasal drip), Acute dysfunction of right eustachian tube URI (upper respiratory infection) Qualifiers: URI type: unspecified viral URI Qualified Code(s): J06.9 - Acute upper respiratory infection, unspecified Patient Disposition: Home Condition: Stable Instructions: Antibiotic Form, Pharyngitis (ED), Earache (ED), Cold Symptoms (ED), Postnasal Drip (DC) Additional Instructions: Strep test was negative in the clinic today. We will send strep for culture. If this comes back positive we will contact you in place you on antibiotics at that time. Increase fluids and stay well hydrated Tylenol/motrin for pain/fever Flonase and OTC antihistamines as directed Vicks vapor rub to open sinuses Sinus rinses for congestion Cepacol spray, cough drops, throat lozenges, warm tea with honey/lemon, gargle salt water to soothe throat BRAT diet for diarrhea Clear liquids x 24 hours then advance as tolerated for nausea/vomiting Go to the ED if you develop a worsening in your condition- high fever not controlled by Tylenol or Motrin, dehydration, weakness, lethargy, shortness of breath, or chest pain. Follow up with your PCP in 3-5 days if symptoms persist. Patient Language: South Korean Prescriptions: No Action No Home Medications Follow-up/Referrals: UNKNOWN,DOCTOR [Non-Staff] - Stand Alone Forms: Work/School Release IP Time of Disposition: 09:15 Quality NIHSS Nursing Documentation ED NIHSS nursing documentation: reviewed/agree
[2025-02-21 09:05] VITALS: BP 109/52; PULSE 88; RESP 18; TEMP 36.6; O2SAT 100
[2025-02-21 09:23] LABS: EDSTREPNEGPOS1 Negative (Negative)
== END 2025-02-21 09:18 | disposition home or self-care (01) ==
PROVIDERS: Emergency Provider Nurse Practitioner Family
DX: R09.82 Postnasal drip (principal); H69.91 Unspecified Eustachian tube disorder, right ear; J06.9 Acute upper respiratory infection, unspecified
CPT/HCPCS: 87081; 87880; 99213; G0463

== ENCOUNTER 2025-08-22 07:36 | Outpatient (CLI) | payer OTHER, SELFPAY ==
--- OUTSIDE RECORDS SUMMARY | 2024-08-08 02:30 | XMS_ITS | Continuity of Care Document ---
Author Organization [facility] Address [address] [place] [address] Phone Care Team Providers Care Community Outreach Specialist Name Role Phone Kenny Isabel DMD Unavailable Unavailable Medications Medication Instructions Dosage Effective Dates (start - stop) Status Comments amoxicillin 500 mg capsule take 1 capsule by oral route every 8 hours 500 MG - No Longer Active dexamethasone 2 mg tablet take 1 tablet by oral route 2 times every day 2 MG - No Longer Active Mapap (acetaminophen) 500 mg capsule take 2 capsule by oral route every 6 hours as needed 1000 MG - No Longer Active Procedures Procedure Date Extraction erupted tooth or exposed root Surgical extr erupted tooth Limit Oral Evaluation- problem focused O Exempt From Sealant Measure Dental Panoramic Radiographic Image Caries Risk Assess & Doc Mod Risk Advance Directives Directive Yes / No Effective Date File Name No Information Encounters Encounter Description Practice Location Reason(s) For Visit Diagnoses Date Provider Providers Copied on Encounter [facility] , [address], [place], [place], [address], tel:[phone] [facility] on smooth surface penetrating into pulp Chalo Cox. [address], [place], [place], [address]. tel:[phone] Referring Provider: Kenny Isabel [address], [place], [address]. tel:[phone] [facility] , [address], [place], [place], [address], tel:[phone] [facility] Encounter for dental exam and cleaning w abnormal findings Chalo Cox. [address], [place], [place], [address]. tel:[phone] Referring Provider: Kenny Isabel, [address], [place], [address]. tel:[phone] [facility] , [address], [place], [place], [address], tel:[phone] [facility] No Information Isabel Kenny. [address], [place], [place], [address]. tel:[phone] Referring Provider: Kenny Isabel, [address], [place], [address]. tel:[phone] Family History Family Member Type Diagnosis Age At Onset No Information Payers Payer name Insurance type Covered republican ID Authoriza tion(s) No Information Social History Type Description Quantity Date Captured Comments Sex Female Smoking Status No Information Chief Complaint And Reason For Visit No Information Reason For Referral Reason For Referral No Information History Of Present Illness Encounter Date Complaint History Of Prese nt Illness No Information Functional Status Date Functional Assessmen t No Information Instructions Date Instruction Additional Infor mation No Information Assessments Type Assessment Date No Information Patient Care Teams Name Effective Dates (start - stop) Status Members No Information
--- NOTE | ~2025-08-22 | US_ITS ---
Clinical history:Right upper quadrant pain EXAM:Ultrasound abdomen limited TECHNIQUE:Multiple static grayscale images and color Doppler images were obtained of the abdomen. Comparisons:None available FINDINGS: Visualized pancreas is unremarkable. Visualized liver is unremarkable. Hepatopedal flow in the main portal vein. No gallbladder wall thickening or pericholecystic fluid. No Alvares's sign according to the decorating machine operator. Common duct measures 2.1 mm which is within normal limits. IMPRESSION: 1. Unremarkable study. If symptoms persist or worsen, consider a short-term follow-up study or additional imaging for further assessment. Reviewed, dictated and finalized at location Q. H STILL OPERATOR IMPRESSION: 1. Unremarkable study. If symptoms persist or worsen, consider a short-term follow-up study or additio nal imaging for further assessment.
--- OUTSIDE RECORDS SUMMARY | 2025-08-22 07:39 | XMS_ITS | Clinical Summary ---
Author Organization [facility] [employer] Address [address] [place] [address] Care Team Providers Care Home Visits Nurse Name Role Phone Unavailable Primary Care Provider Unavailabl e Source Comments [facility] [employer],non-owned Affiliates and Associated Physician Practices is amultiple site organization consisting of ambulatory clinics and hospital sitesin [place], [place], [place] and [place]. This disclosure is being madepursuant to the Care Everywhere program and may not contain all information available regarding this patient. Last updated 18.[facility] [employer] Allergies No known active allergies Active Problems Problem Noted Date Diagnosed Date Abnormal ultrasound 03/05/2020 Overview (03/05/2020): Outside scan 02/28/20 showed HC of 2% O+, labs pending Social History Tobacco Use Types Packs/Day Years Used Date Smoking Tobacco: Never Assessed Comments No Sex and Gender Information Value Date Recorded Sex Assigned at Not on file Legal Sex Female 12:42 PM CDT Gender Identity Not on file Sexual Orientation Not on file Last Filed Vital Signs Vital Sign Reading Time Taken Comments Blood Pressure - - Pulse - - Temperature 36.4 C (97.5 F) 03/05/2020 10:40 AM CDT Respiratory Rate - - Oxygen Saturation - - Inhaled Oxygen Concentration - - Weight - - Height 162.6 cm (5' 4) 03/05/2020 10:40 AM CDT Body Mass Index - - Plan of Treatment Health Maintenance Due Date Last Done Comments HIV SCREENING 2013 HEPATITIS C SCREENING 04/19/2016 DTAP/TDAP/TD VACCINES (1 - Tdap) 2017 HEPATITIS B VACCINE (1 of 3 - 19+ 3-dose series) 2017 DEPRESSION SCREENING 10/19/2024 HPV VACCINE (1 - 3-dose SCDM series) 2025 COVID-19 VACCINE (1 2023-2 5 season) 2025 INFLUENZA VACCINE (#1) 2025 ZOSTER VACCINE (1 of 2) 2048 HIB VACCINE Aged Out No longer eligi ble based on patient's age to complete this topic MENINGOCOCCAL (Group B) VACC INE SHARED DECISION-MAKING Aged Out No longer eligibl e based on patient's age to complete this topic MENINGOCOCCAL GROUPS A/C/Y/W VACCINE Aged Out No longer eligible b ased on patient's age to complete this topic PNEUMOCOCCAL VACCINE Aged Out No long er eligible based on patient's age to complete this topic Insurance [facility] [address] [facility]
--- OUTSIDE RECORDS SUMMARY | 2025-08-22 07:39 | XMS_ITS | Clinical Summary ---
Author Organization [facility] Address [address] [place] [address] Care Team Providers Care Director Loan Name Role Phone No, Physician Primary Care Provider [phone] Allergies No known active allergies Medications ketorolac (TORADOL) 10 mg tablet Take 1 tablet (10 mg total) by mouth every 6 (six) hours as needed for pain 20 tablet Active Additional Information Patient not taking.Reported on 08/22/2024 sertraline (ZOLOFT) 25 mg tablet Take 1 tablet (25 mg total) by mouth daily Active sertraline (ZOLOFT) 50 mg tablet TAKE 1 TABLET BY MOUTH ONCE DAILY (TAKE DAILY AFTER 7 DAYS OF 25 MG TABLET) Active valACYclovir (VALTREX) 500 mg tablet Take 1 tablet every 12 hours by oral route. Active fluticasone propionate (FLONASE) 50 mcg/actuation nasal spray Administer 2 sprays into each nostril 2 (two) times a day 1 each 6 Active Active Problems No known active problems Surgical History Surgery Date Site/Laterality Comments TONSILLECTOMY 10/19/2006 - 10/18/2007 Family History Medical History Relation Name Comments Diabetes type II Mother Hypertension Mother Lupus Mother Relation Name Status Comments Mother Social History Tobacco Use Types Packs/Day Years Used Date Smoking Tobacco: Never Tobacco Cessation:Counseling Given: Not Answered AUDIT-C Answer Date Recorded Q1: How often do you have a drink containing alc ohol? Monthly or less 08/22/2024 Q2: How many drinks containi ng alcohol do you have on a typical day when you are drinking? 1 or 2 08/22/2024 Q3: How often do you have si x or more drinks on one occasion? Never 08/22/2024 Personal Safety Answer Date Recorded Have you ever been in or are you currently in a harmful physical or emotional relationship or is someone making you feel afraid or unsafe? 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 Gender Identity Not on file Sexual Orientation Not on file Last Filed Vital Signs Vital Sign Reading Time Taken Comments Blood Pressure 110/72 08/22/2024 8:31 AM HONING 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 Pulse 83 08/22/2024 8:31 AM HONING 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 Temperature 36.4 C (97.5 F) 06/28/2024 12:49 PM CDT Respiratory Rate 16 06/28/2024 4:23 PM CDT Oxygen Saturation 99% 06/28/2024 4:23 PM CDT Inhaled Oxygen Concentration - - Weight 63.5 kg (140 lb) 12/06/2024 8:55 AM HONING 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 Height 160 cm (5' 3) 12/06/2024 8:55 AM HONING 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 Body Mass Index 24.8 12/06/2024 8:55 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 Plan of Treatment Health Maintenance Due Date Last Done Comments Cervical Cancer Screening 1998 Depression Screening 1998 Hepatitis C Screening 1998 Regular Well Visit/Exam 18-64 2016 DTaP/Tdap/Td Vaccine (7 - Td or Tdap) 06/21/2019 06/21/2009, 03/23/2003, 07/25/1999, Additional history exists Influenza Vaccine (#1) 2025 0, 10/04/2008, 10/07/2006, Additional history exists Hepatitis B Screening Completed 1998 , 1998, 1998 Varicella Vaccines Completed 07/10/2008, 0 05/19/2000, 05/01/1999 HPV Vaccines Completed 12/20/2012, 06/20, 05/13/2012 Pneumococcal vaccine <65 Aged Out No longer eligible based on patient's age to complete this topic Insurance [facility] Care Teams Director Loan Relationship Specialty Start Date End Date No, Physician PCP - General 01/07/22
== END 2025-08-22 07:37 | disposition home or self-care (01) ==
PROVIDERS: Visit Provider Surgery
DX: R10.11 Right upper quadrant pain (principal); R11.2 Nausea with vomiting, unspecified
CPT/HCPCS: 76705; 80053; 83690; 85025

== ENCOUNTER 2025-08-22 16:15 | Outpatient (CLI) | payer OTHER, SELFPAY ==
--- OUTSIDE RECORDS SUMMARY | 2024-08-08 02:30 | XMS_ITS | Continuity of Care Document ---
Author Organization [employer] [facility] Address [address] [place] [address] Phone Care Team Providers Care Genetic Counsellor Name Role Phone Kenny Isabel DMD Unavailable [...] Diagnoses Date Provider Providers Copied on Encounter [email or web address] , [address], [place], [place], [address], tel:[phone] [facility] caries on smooth surface penetrating into pulp Chalo Cox. [address], [place], [place], [address]. tel:[phone] Referring Provider: Kenny Isabel [address], [place], [address]. tel:[phone] [facility] , [address], [place], [place], [address], tel:[phone] [facility] Encounter for dental exam and cleaning w abnormal findings Chalo Cox. [address], [place], [place], [address]. tel:[phone] Referring Provider: Kenny Isabel, [address], [place], [address]. tel:[phone] [facility] , [address], [place], [place], [address], tel:[phone] [facility] No Information Isabel Kenny. [address], [place], [place], [address]. tel:[phone] Referring Provider: Kenny Isabel, [address], [place], [address]. tel:[phone] Family History Family Member Type Diagnosis Age At Onset No Information Payers Payer name Insurance type Covered green party ID Authoriza tion(s) No Information Social [...]
[2025-08-22 16:43] LABS: Hematocrit 40.6 % (37.0-47.0); Hemoglobin 13.0 g/dL (12.0-15.0); Immature Granulocyte Percent A 0.2 % (0-0.5); Lymphocytes Absolute Auto 3.16 K/mm3 (0.9-3.2); Mean Corpuscular HGB Conc 32.0 g/dl (32-36); Mean Corpuscular Hemoglobin 27.0 pg (26-34); Mean Corpuscular Volume 84.4 fl (80-100); Nucleated Red Blood Cells Absolute Auto 0.000 K/mm3 (0.0-0.012); Nucleated Red Blood Cells Perc 0.0 % (0.0-0.2); Platelet Count Result 284 k/mm3 (150-375); Red Blood Count 4.81 M/mm3 (4.2-5.4); White Blood Count 6.4 K/mm3 (4.5-10.0)
--- OUTSIDE RECORDS SUMMARY | 2025-08-22 16:56 | XMS_ITS | Data Portability ---
Author Organization [employer] , [facility] Address [address] [place] [address] Assessment Encounter Date Assessment Date Assessment LastModified by Organization Details LastModified Time 10/10/2022 10/10/2022 Pt is an ectopic follow up after methotrexate administration. Will check hcg Quant today. Pt reports minimal cramping. Pt states she has been extra active with the holidays over the last couple days. Pt would like ibuprofen rx sent. She has used this in the past and likes it. RTC for repeat Quant. [email or web address] Not available 10/10/2022 12:35:57 12/10/2022 12/10/2022 Pt is a 22 yo F who is here today for a confirmation of visit. has not been previously confirmed at another healthcare facility. She has a positive UPT at home. She had an Ectopic in September. Quants were trended until WNL. Dr. Laureano previously discussed at length fertility and increased chances for ectopic. Discussed quant vandana with a pos home test. Will do an US when quant is 1200. LMP: 11/08/2022 First trimester teaching provided. ---Foods and activities to avoid ---Safe meds ---Orientation to practice ---Delivery locations ---AILEEN visit progression --- vitamins daily ---Ectopic S/S and Precautions given ---S/S of SAB reviewed and when to seek care Will do HCG today and trend. Discussed with Dr. Patrick. Pt will RTC 2 weeks for US. [email or web address] Not available 12/10/2022 14:46:50 Plan of Treatment Reminders Order Date Submit Date Provider Last Modified By Organization Details Last Modified Time Details Appointments None recorded. Lab test, urine 2022 023 bnotzke [facility], [address] [place], [address], 3 14:45:13 beta-HCG, quantitati ve, serum or plasma 2021 022 [facility], [address] [place], [address], 2 13:48:07 beta-HCG, quantitati ve, serum or plasma 2021 022 [facility], [address] [place], [address], 2 12:47:28 Referral None recorded. Procedures None recorded. Surgeries None recorded. Imaging None recorded. Medication Orders ibuprofen 800 mg tablet 2021 023 [facility], [address] [place], [address], 3 14:21:11 Patient TargetsNo targets recorded. Patient InstructionsNo instructions recorded. Reason for Referral None Reported. Results Created Date Observation Date Name Description Value Unit Range Abnormal Flag Note LastModifiedBy Organization Detail LastModifiedTime 10/10/2010/11/2022 HCG, TOTAL , QUANT HCG, total, quant 215 mIU/m L <5 high Refer ence Range s are for femal es aged 18 years - Adult Nonpr egnan t or preme nopau giorgi <5 Postm enopa usal <10 Value s from diffe rent assay metho ds may vary. The use of this assay to monit or or to diagn ose patie nts with cance r or any other condi tion unrel ated to pregn willie has not been valid ated by the manuf actur er of this assay . Not Available [facility] [address] [place], [address], 10/11/2022 12:47:28 10/14/2010/15/2022 HCG, TOTAL , QUANT HCG, total, quant 25 mIU/m L <5 high Refer ence Range s are for femal es aged 18 years - Adult Nonpr egnan t or preme nopau giorgi <5 Postm enopa usal <10 Value s from diffe rent assay metho ds may vary. The use of this assay to monit or or to diagn ose patie nts with cance r or any other condi tion unrel ated to pregn willie has not been valid ated by the [facility] act[facility] of this assay . Not Available [address], [address], 10/15/2022 13:48:07 10/24/19 23 10/25/2022 HCG, TOTAL , QUANT HCG, total, quant < 2 mIU/m L <5 normal Refer ence Range s are for femal es aged 18 years - Adult Nonpr egnan t or preme nopau giorgi <5 Postm enopa usal <10 Value s from diffe rent assay metho ds may vary. The use of this assay to monit or or to diagn ose patie nts with cance r or any other condi tion unrel ated to pregn willie has not been valid ated by the [facility] actur er of this assay . Not Available [address], [address], 10/25/2022 11:38:44 12/10/19 23 12/10/2022 pregn willie test, urine HCG positi ve Not Available [facility] [address] [place], [address], 12/10/2022 14:32:23 Result Notes None recorded. Procedures Surgical History Date Name Laterality Status Provider Name and Address Organization Details Recorded Time 10/19/2020 Date of Last Pap Smear completed [facility] 09/24/2023 14:05:42 Imaging Results None recorded. Procedure Notes None recorded. Medical Equipment None Reported. Allergies No known drug allergies Medications Name Sig Start Date Stop Date Status Note LastModified by Organization Details LastModified Time ibuprofen 800 mg tablet Take 1 tablet 3 times a day by oral route. 12/10 completed Not Available Not Available Not Available metronidazo le 0.75 % (37.5 mg/5 gram) vaginal gel 10/10 completed Not Available Not Available Not Available metronidazo le 500 mg tablet 12/10 completed Not Available Not Available Not Available valacyclovi r 500 mg tablet 12/10 completed Not Available Not Available Not Available methylpredn isolone 4 mg tablets in a dose pack TAKE BY MOUTH DIRECTED ON INSIDE OF PACKAGE 10/10 completed Not Available Not Available Not Available Loryna (28) 3 mg-0.02 mg tablet 12/10 completed Not Available Not Available Not Available Vitals Date Recorded Body height Body mass index (BMI) Body weight Systolic And Diastolic Provider Name and Address Organization Details Last Updated DateTime 12/10/2022 160.02 cm 20.4 kg/m2 24080.12 g 100/62 mm[Hg] Julieth Rutledge [employer] 12/10/2022 14:24:23 Date Recorded Body height Body mass index (BMI) Body weight Body temperature Systolic And Diastolic Provider Name and Address Organization Details Last Updated DateTime 10/10/2022 160.02 cm 20.2 kg/m2 26575.2 5 g 97.4 [degF] 110/70 mm[Hg] Dana Gaytan [employer] 10:59:02 Date Recorded Body height Body mass index (BMI) Body weight Body temperature Systolic And Diastolic Provider Name and Address Organization Details Last Updated DateTime 10/14/2022 160.02 cm 20.8 kg/m2 17329.0 3 g 97.4 [degF] 108/58 mm[Hg] Iona Nuñez [employer] 11:31:51 Social History Question Answer Notes LastModified by Organizat ion Details LastModified Time Tobacco Smoking Status Never Smoker Jluieth salguero [employer] 12/10/2022 14:22:40 Are You Blind Or Do You Have Difficulty Seeing? No Information not available 12/10/2022 Are You Deaf Or Do You Have Serious Difficulty Hearing? No Information not available 12/10/2022 What Type Of Diet Are You Following? REGULAR Information not available 12/10/2022 How Many Children Do You Have? 2 Information not available 12/10/2022 Are There Any Occupational Health Risks Where You Work? Direct Support Person [email or web address] Information not available 10/14/2022 What Is Your Relationship Status? Single Boyfriend Information not available 10/14/2022 Are You Sexually Active? Yes Information not available 12/10/2022 Sex: Unknown Functional Status Question Answer Note LastModified by [employer] Details LastModified Time Do you use any illicit or recreational drugs? No Information not available 12/10/2022 What is your level of alcohol consumption? None [email or web address] Information not available 12/10/2022 Are you currently employed? Yes Information not available 10/14/2022 What is your exercise level? Occasional Information not available 12/10/2022 Mental Status None recorded. Family History Nothing Reported. Medical History Condition Response Other Cancer N High Blood Pressure N Colon Cancer N Cytomegalovirus N Hyperthyroidism N MRSA N Blood Transfusion N Herpes (HSV) N Breast Cancer N Lung Cancer N Depression N Hypothyroidism N Incontinence N Panic Attacks N Neurological Disorder N Deep Vein Thrombosis N Anxiety Disorder N Autoimmune disease N Arthritis N Shingles N Tuberculosis/Positive PPD N Polycystic Ovarian Syndrome N Cervical Cancer N Hematuria N Chlamydia N Varicosities N Stroke N Seasonal allergies N Crohn's Disease N Alzheimer's/Dementia N COPD/Emphysema N Endometriosis N HPV/Genital Warts N IBS (Irritable Bowel Syndrome) N History of Abnormal Pap N High Cholesterol N Liver Disease N Fibromyalgia N Kidney Infection N Ulcer N Kidney Disease N HIV N Gallbladder disease N Sickle Cell Disease/Trait N Von Willebrand disease N ADD/ADHD N Eating Disorder N Anemia N Diabetes Mellitus (non-insulin dependent ) N Ovarian Problems N Multiple Sclerosis N Gonorrhea N Frequent Urinary Tract infections N Osteopenia N Headaches/migraines N GERD (reflux) N Ovarian Cancer N Diabetes (insulin dependent) N Seizures/Epilepsy N Fibroids N Heart Attack N Asthma N Lupus N Endometrial Cancer N Rubella N Blood Clotting Disorder N Bipolar Disorder N Diabetes Mellitus (during ) N Ulcerative Colitis N Hepatitis N Heart Disease N Pulmonary Embolism N RPR N Chicken Pox N Osteoporosis N Gynecological History Statement/Question Response Flow Light Date of LMP 11/08/2022 Frequency of Cycle (Q days) 28 Date of Last Pap Smear 10/19/2020 Duration of Flow (days) 5 Current Control Method None Age at Menarche 11 Obstetrics History GPAL:G 6 P 1 1 4 2 Type Value Full Term 1 Spontaneous 3 Premature 1 Living 2 Ectopics 1 Total 6 Past Encounters Encounter ID Performer Location Encounter Start Date Encounter Closed Date Diagnosis/Indication Diagnosis SNOMED-CT Code Diagnosis ICD10 Code Diagnosis IMO Codes [id number] [facility] [address] [place] [address] 10/10/2022 10:52:46 10/10/2022 12:39:07 Past history of ectopic 401657909 Z87.59 [id number] Kevin Gann MD [facility] [address] [place] [address] 10/14/2022 11:01:04 10/23/2022 14:13:42 Ectopic 29017458 O00.90 will get weekly until <5 discussed at length fertility and increased chances for ectopic and she needs a quant vandana with a pos home test and then we will do n US when quant is 1200 and we will have her try again after 3 rd menses DISCUSSED NO OPREGNANCY FOR 12 WEREKS TO LET THE TUBE HEAL [id number] [facility] [address] [place] [address] 12/10/2022 14:10:34 12/10/2022 17:29:23 test positive 506114876 Z32.01 Past pregn willie history of ectopic 442492276 Z87.59 Menstrual period late 82 872959 N92.6 Health Concerns Section Related Observation LastModified by Organization Detai ls LastModified Time None Recorded Concern Status LastModified by Organization Details LastModified Time None Recorded Advance Directives Directive None Recorded Payers Insurance Date Sequence Insurance Name Policy Number Policy Reyes Covered Member ID Reyes Member ID Guarantor Name 02/02/2023 1 [facility] ON OR AFTER 04/18/21 (MEDICAID REPLACEMENT - HMO) Lila Lira [id number] Lila Lira Notes Date Note Type Note Provider Name and Address Organization Details Recorded Time 10/10/2022 text/html Ectopic PregnancyReported by PatientHPIFor associated symptoms, patient reportspelvic cramping. For onset/timing, patient reportslmp:(aug.25).ROS as [facility] the [facility] Desyla 22 y/o presents for ER follow up Ectopic . [facility] [place], [address], [employer] 10/10/2022 12:36:38 10/14/2022 text/html Patient is here for an ER follow up on an Ectopic . She was seen in the Er 10/05-10/06. She was seen at [facility]. and spotting off and on ahnd Quant has decreased nicely Kevin Gann MD [address] [place] [address], [phone], [facility] [employer] [facility] 10/23/2022 11:38:31 12/10/2022 text/html ROS as noted in the HPI Patient here for a missed period she has a history of ectopic back in 10/09. Her last HCG on 10/24/2022 was WNL. [facility] [address] [facility], [place], [address], [employer] [facility] 12/10/2022 15:31:28 OBGyn Episode No OBEpisode recorded.
--- OUTSIDE RECORDS SUMMARY | 2025-08-22 16:56 | XMS_ITS | Clinical Summary ---
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 Gender Identity Not on file Sexual Orientation Not on file Last Filed Vital Signs Vital Sign Reading Time Taken Comments Blood Pressure 110/72 08/22/2024 8:31 AM CORE DRILL OPERATOR HELPER Pulse 83 08/22/2024 8:31 AM CORE DRILL OPERATOR HELPER Temperature 36.4 C (97.5 F) 06/28/2024 12:49 PM CDT Respiratory Rate 16 06/28/2024 4:23 PM CDT Oxygen Saturation 99% 06/28/2024 4:23 PM CDT Inhaled Oxygen Concentration - - Weight 63.5 kg (140 lb) 12/06/2024 8:55 AM CORE DRILL OPERATOR HELPER Height 160 cm (5' 3) 12/06/2024 8:55 AM CORE DRILL OPERATOR HELPER Body Mass Index 24.8 12/06/2024 8:55 AM CORE DRILL OPERATOR HELPER Plan of Treatment Health Maintenance Due Date [...] patient's age to complete this topic Insurance [facility] Care Teams Industrial Safety And Health Specialist Relationship Specialty Start Date End Date No, Physician PCP - General 01/07/22
--- OUTSIDE RECORDS SUMMARY | 2025-08-22 16:56 | XMS_ITS | Clinical Summary ---
Author Organization [facility] [employer] Address [address] [place] [address] Care Team Providers Care Noodle Catalyst Maker Name Role Phone Unavailable Primary Care Provider Unavailabl e Source Comments [facility] [employer] [facility],non-owned Affiliates and Associated Physician Practices is amultiple site organization consisting of ambulatory clinics and hospital sitesin [place], [place], [place] and [place]. This disclosure is being madepursuant to the Care Everywhere program and may not contain all information available regarding this patient. Last updated 18.[facility] [employer] Allergies No known active allergies Active Problems [...] patient's age to complete this topic Insurance [facility] Gigi Joe [address] [facility]
--- OUTSIDE RECORDS SUMMARY | 2025-08-22 16:56 | XMS_ITS | Data Portability ---
Author Organization [facility], [place] Address [address] [place] [address] [place] [address] Assessment Encounter Date Assessment Date Assessment LastModified by Organization Details LastModified Time 01/11/2025 01/11/2025 Annual gynecological exam performed. Patient will come back in a year unless there are new symptoms. pap collected Suggest Calcium with Vitamin D if not eating in diet. Patient advised to get annual flu shot. Recommend yearly physicals and preform monthly breast exams. Genetic testing is available for patients with family history of cancer. Engage in safe sexual practices, use condoms. Encouraged to have daily exercise. Avoid tobacco and illicit drugs, moderation of alcohol. If BMI greater than 25 dietary consult advised. If you have any questions please call or email. Not available 01/11/2025 16:51:19 Plan of Treatment Reminders Order Date Submit Date Provider Last Modified By Organization Details Last Modified Time Details Appointments None recorded. Lab None recorded. Referral None recorded. Procedures None recorded. Surgeries None recorded. Imaging US, obstetric, follow-up 2022 [email or web address], [address], [place], [address], 20:16:13 US, obstetric, biophysical profile + non-stress test 2022 023 [email or web address] [place], [address], [place], [address], 20:16:13 Medication Orders clindamycin HCl 300 mg capsule 2024 025 [facility], [address] [place], [address], 5 12:01:54 Zoloft 25 mg tablet 2024 025 [facility], [address] [place] [address], [address], 5 12:14:06 Zoloft 50 mg tablet 2024 025 [facility], [address] [place] [address], [address], 5 12:14:05 Metrogel Vaginal 0.75 % (37.5 mg/5 gram) 2023 024 [email or web address] 1 [facility], [address] [place] [address], [address], 5 16:21:53 Zoloft 25 mg tablet 2023 024 [facility], [address] [place] [address], [address], 4 10:41:07 Zoloft 50 mg tablet 2023 025 [facility], [address] [place] [address], [address], 5 16:22:07 ondansetron 4 mg disintegrat ing tablet 2023 025 [facility], [address] [place] [address], [address], 5 16:22:03 Patient TargetsNo targets recorded. Patient InstructionsNo instructions recorded. Reason for Referral None Reported. Results Created Date Observation Date Name Description Value Unit Range Abnormal Flag Note LastModifiedBy Organization Detail LastModifiedTime 07/22/2007/22/2023 HEMOG LOBIN A1C hemoglobin A1C 5.2 % 0-5.6 The Ameri can [facility] i[facility] n recom mends that a prima ry goal of thera py otf d be a HBA1C of < 7% and that physi cians shoul d reeva luate the treat ment regim en in patie nts with HBA1C value s consi stent ly > 8%. <5.7% Debora l 5.7 - 6.4% Incre ased risk for diabe zandra >=6.5 % Diagn ostic of diabe zandra <7.0% Goal of thera py >8.0% Actio n sugge sted Not Available [facility] (Lab) [address], [place], [address], 07/23/2023 01:53:04 01/20/20 24 01/20/2024 VAGIN ITIS/ VAGIN OSIS, DNA PROBE hermelinda sp. detection, direct probe Negati ve negati ve Not Available [facility] (Lab) [address] [place], [address], 01/21/2024 15:32:13 01/20/20 24 01/20/2024 VAGIN ITIS/ VAGIN OSIS, DNA PROBE gardnerella vag. detection, direct probe Positi ve negati ve abnormal Not Available [facility] (Lab) [address], [place], [address], 01/21/2024 15:32:13 01/20/20 24 01/20/2024 VAGIN ITIS/ VAGIN OSIS, DNA PROBE trichomonas vag. detection, direct probe Negati ve negati ve Not Available [facility] (Lab) [address], [place], [address], 01/21/2024 15:32:13 01/20/20 24 01/20/2024 CT/GC (CARMELITA) , SWAB chlamydia trachomatis, PCR Negati ve negati ve Not Available [facility] (Lab) [address] [place], [address], 01/21/2024 15:32:14 01/20/20 24 01/20/2024 CT/GC (CARMELITA) , SWAB neisseria gonorrhoeae, PCR Negati ve negati ve Not Available [facility] (Lab) [address], [place], [address], 01/21/2024 15:32:14 01/12/20 25 01/11/2025 IMAGE GUIDE D PAP, REFLE X HPV IF ASCUS ONLY image guided Pap, reflex HPV ASCUS only SEE RESULT S BELOW CASE REPOR T: Cytol ogy Gynec ologi santy Repor t Case: [id number] Autho lyle ella Provi ac: Danii Hernandez, SCHOOL LABORATORY TECHNICIAN Colle cted: 01/11 1709 Order ing Locat ion: [place] [facility] Recei lelo: 01/12 0230 First Scree n: Lily Reynoso , CT Rescr een: Lamar Boothe, CT Speci men: Scresylvia santiago Pap - Image d, Cervi x STATE MENT OF ADEQU ACY: Satis facto ry for evalu ation Trans forma tion zone compo nent prese nt ----- ----- ----- ----- ----- ----- ----- ----- ----- ----- ----- ----- ----- ----- ----- ----- ----- ---- FINAL DIAGN OSIS: Negat mino for Intra epith elial [place] ramos or Bryanna nolen (NIL) . Shift in [place] sugge stive of bacte rial vagin osis. Elect evan saunders d by Lamar Boothe, CT on 025 at 1001 CDT ----- ----- ----- ----- ----- ----- ----- ----- ----- ----- ----- ----- ----- ----- ----- ----- ----- ---- COMME NT: This speci men was revie wed by a Cytot echno logis t and/o r Patho logis t (as indic ated in this repor t) after evalu ation using the Thinp rep Imagi ng Syste m. CLINI SANTY INFOR MATIO N: Menst rual Statu s: LMP (if appli cable ): Clini santy Histo ry/Pr eviou s Pap: Type of Neopl danyelle (if appli cable ): Signi fican t Clini santy Findi ngs: Other Histo ry: Hormo era (if appli cable ): PAP EDUCA HEMAL L NOTE: The Pap Test is a scree jack test with an inher ent false negat mino rate. Liqui d-bas ed sampl ing may decre ase, but will not elimi chad, false negat mino resul ts. A negat mino resul t does not precl ude the prese nce and/o r devel opmen t of disea se, since the prese nce of abnor mal cells in the sampl e depen ds on the locat ion of the lesio n and sampl ing techn ique. Jese nued regul ar scree jack is the best metho d of cance r preve ntion . If repor yoselin cytol ogic findi ng do not corre late with physi santy and/o r histo rical findi ngs, furth er inves tigat ion is recom jame d, as clini diaz colon nted. Not Available [facility] (Lab) [address], [place], [address], 01/17/2025 11:04:37 07/21/20 25 07/21/2025 CT/GC AND TRICH OMONA S VAGIN DHRUV (RRNA ), URINE chlamydia trachomatis, PCR Negati ve negati ve Not Available [facility] (Lab) [address], [place], [address], 07/22/2025 12:50:54 07/21/20 25 07/21/2025 CT/GC AND TRICH OMONA S VAGIN DHRUV (RRNA ), URINE neisseria gonorrhoeae, PCR Negati ve negati ve Not Available [facility] (Lab) [address], [place], [address], 07/22/2025 12:50:54 07/21/2007/21/2025 CT/GC AND TRICH OMONA S VAGIN DHRUV (RRNA ), URINE trichomonas vaginalis ribosomal RNA (rrna) [place] [id number] 49_CL _SOUR CETVG : Urine - Bladd er Not Available [facility] (Lab) [address], [place], [address], 07/22/2025 12:50:54 07/15/20 23 07/15/2023 US, obste tric, follo w-up No observ ation record ed. [email or web address] [place] [address], [place], [address], 07/15/2023 11:33:29 07/15/20 23 07/15/2023 US, obste tric, follo w-up No observ ation record ed. [email or web address] [address], [place], [address], 07/16/2023 10:31:32 07/22/2007/22/2023 US, obste tric, bioph ysica l profi le No observ ation record ed. [email or web address] [place] [address], [place], [address], 07/22/2023 13:20:44 07/22/2007/22/2023 US, obste tric, follo w-up No observ ation record ed. [email or web address] [address], [place], [address], 07/23/2023 16:51:12 07/29/20 23 07/29/2023 US, obste tric, bioph ysica l profi le No observ ation record ed. [email or web address] [place] [address], [place], [address], 07/29/2023 13:32:36 07/29/2007/29/2023 US, obste tric, bioph ysica l profi le No observ ation record ed. [email or web address] Linda [address], [place], [address], 07/30/2023 10:50:46 08/05/2008/05/2023 US, obste tric, follo w-up No observ ation record ed. [facility] [address], [place], [address], 08/05/2023 12:38:43 08/05/2008/05/2023 US, obste tric, bioph ysica l profi le + non-s tress test No observ ation record ed. [facility] [address], [place], [address], 08/05/2023 12:38:55 08/05/2008/05/2023 US, obste tric, follo w-up No observ ation record ed. [email or web address] [address], [place], [address], 08/06/2023 13:17:16 Result Notes None recorded. Problems Name Problem SNOMED Code Status Onset Date Resolution Date Notes Provider Name and Address Organization Details Recorded Time Migraine 81780152 Ignacio salguero, [facility] 17:46:43 Past pregnanc y history of prematur e delivery [id number] Ignacio salguero, [facility] 17:46:43 Prematur e delivery [id number] Ignacio salguero, [facility] 3 12:55:34 Excessiv e salivati on 52071525 Completed Anthony Spencer [facility] 3 12:55:34 Herpes simplex 91378013 Completed HSV 1/2 - Valtrex - h/o 35.6wk delivery - start sooner?? Anthony Spencer [facility] 3 12:55:34 Polyhydr amnios 29039354 Completed 07/15 10/ A1C WNL Anthony Spencer [facility] 3 12:55:34 Small head 766702005 Completed MFM - low normal growth overall 04/24/20 @ 7:30am w/ [facility], growth wnl, no further appts Anthony Spencer [facility] 1 16:57:08 Speciali zed medical examinat ion Completed 201412/10/2020 Routine gynecolo gical examinat ion;Prac michael ID: [address] [facility] 11:50:51 Pregnanc y test negative 385528179 Completed 201412/10/2020 Negative Pregnanc y Test;Pra ctice ID: [address] [facility] 11:50:25 Speciali zed medical examinat ion Completed 201412/10/2020 Other specifie d chlamydi al diseases ;Practic e ID: [address] [facility] 11:50:53 Venereal disease screenin g Completed 201412/10/2020 Screenin g examinat ion for venereal disease; Practice ID: [address] [facility] 11:51:11 Implanta tion of subcutan eous contrace ptive Completed 201412/10/2020 Insertio n of implanta ble subderma l contrace ptive;Pr actice ID: 0001 Merissa salguero, [facility] 11:50:01 Subcutan eous contrace ptive implant present [id number] Completed 201412/10/2020 Removal Or Check Nexplano n;Practi ce ID: 0001 Merissa salguero [facility] 11:50:56 Carbuncl e of trunk Completed 201412/10/2020 CARBUNCL E OF TRUNK;Pr actice ID: 0001 Merissa salguero [facility] 11:49:15 Carbuncl e of skin AND/OR subcutan eous tissue Completed 201412/10/2020 Carbuncl e and furuncle of other specifie d sites;Pr actice ID: 0001 Merissa salguero [facility] 11:49:12 Adult health examinat ion Completed 201412/10/2020 Routine general medical examinat ion at a health care facility ;Practic e ID: 0001 Merissa salguero [facility] 11:49:[address] Concept Completed 201412/10/2020 Encounte r for surveill ance of other contrace ptives;P ractice ID: 0001 Merissa salguero, [facility] 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 11:50:[address] Concept Completed 201512/10/2020 Encntr for routine child health exam w/o abnormal findings ;Recorde d Elsewher e: No Locat ion: [facility] S ource: EHR Hide Stretcher Hand arnav: N Practi ce ID: 0001 Armaan lable Time: 11:30:00 AM [facility] 11:50:46 Urogenit al infectio n by Trichomo lien vaginali s [id number] Completed 201512/10/2020 Urogenit al trichomo niasis, unspecif ied;Breezy rded Elsewher e: No Locat ion: [facility] S ource: EHR Hide Stretcher Hand arnav: N Practi ce ID: 0001 Armaan lable Time: 11:30:00 AM [facility] 11:51:06 Trichomo nal vulvovag initis [id number] Completed 201512/10/2020 Trichomo nal vulvovag initis;P ractice ID: [address] [facility] 11:51:00 Miscarri age [id number] Completed 201512/10/2020 Complete or unsp spontane ous without complica tion;Pra ctice ID: 0001 Merissa Turner [facility], [facility] 11:50:19 Situatio n with explicit context Completed 201612/10/2020 Suprvsn of preg w poor reprodct v or obstet hx, first tri;Prac michael ID: 0001 Merissa Turner [facility], [facility] 11:50:44 Gestatio n less than 9 weeks [id number] Completed 201612/10/2020 Less than 8 weeks gestatio n of pregnanc y;Practi ce ID: 0001 Merissa Turner [facility], [facility] 11:49:39 Finding of contents of cervix [id number] Completed 04/06/ 2017 12/10/2020 Weeks of gestatio n of pregnanc y not specifie d;Practi ce ID: 0001 Merissa salguero, [facility] 11:49:29 Secondar y amenorrh ea [id number] Completed 201612/10/2020 Secondar y amenorrh ea;Pract ice ID: 0001 Merissa salguero, [facility] 11:50:39 Pregnanc y detectio n examinat ion Completed 201612/10/2020 Encounte r for pregnanc y test, result positive ;Practic e ID: 0001 Merissa salguero, [facility] 11:50:23 Gestatio n period, 10 weeks [id number] Completed 201612/10/2020 10 weeks gestatio n of pregnanc y;Record ed Elsewher e: No Locat ion: [facility] S ource: EHR Hide Stretcher Hand arnav: N Practi ce ID: 0001 Armaan lable Time: 10:30:00 AM Merissa Ruiztz jose m, [facility] 11:49:41 Finding of trunk structur e Completed 201612/10/2020 Oth diseases and conditio ns compl preg/chl dbrth;Pr actice ID: 0001 Merissa salguero, [facility] 11:51:03 Dizzines s and giddines s [id number] Completed 201612/10/2020 Dizzines s and giddines s;Practi ce ID: 0001 Merissa salguero, [facility] 11:49:22 Pregnanc y, childbir th and puerperi um finding Completed 201612/10/2020 Encounte r for supervis ion of normal 1st pregnanc y, 1st trimeste r;Record ed Elsewher e: No Locat ion: [facility] S ource: EHR Hide Stretcher Hand arnav: N Practi ce ID: 0001 Armaan lable Time: 01:45:00 PM Merissa salguero, [facility] 1 11:50:27 Pregnanc y, childbir th and puerperi um finding Completed 201612/10/2020 Encounte r for supervis ion of normal 1st pregnanc y, 2nd trimeste r;Record ed Elsewher e: No Locat ion: [facility] S ource: EHR Hide Stretcher Hand arnav: N Practi ce ID: 0001 Armaan lable Time: 10:45:00 AM Merissa salguero, [facility] 11:50:29 Pregnanc y, childbir th and puerperi um finding Completed 201612/10/2020 Oth pregnanc y related conditio ns, second trimeste r;Practi ce ID: 0001 Merissa salguero, [facility] 1 11:49:18 Gestatio n period, 20 weeks [id number] Completed 201612/10/2020 20 weeks gestatio n of pregnanc y;Practi ce ID: 0001 Merissa salguero, [facility] 11:49:43 Gestatio n period, 28 weeks [id number] Completed 201612/10/2020 28 weeks gestatio n of pregnanc y;Record ed Elsewher e: No Locat ion: [facility] S ource: EHR Hide Stretcher Hand arnav: N Practi ce ID: 0001 Armaan lable Time: 11:00:00 AM Merissa salguero, [facility] 11:49:45 Insuffic ient weight gain of pregnanc y 70143942 Completed 201612/10/2020 Low weight gain in pregnanc y, third trimeste r;Practi ce ID: 0001 Merissa salguero, [facility] 1 11:50:03 Normal pregnanc y in multigra seun [id number] 40526 Completed 201612/10/2020 Encounte r for suprvsn of normal pregnanc y, third trimeste r;Record ed Elsewher e: No Locat ion: [facility] S ource: EHR Hide Stretcher Hand arnav: N Practi ce ID: 0001 Armaan lable Time: 10:45:00 AM Merissa salguero, [facility] 11:50:21 Prematur e labor [id number] Completed 201612/10/2020 labor without delivery , third trimeste r;Practi ce ID: 0001 Merissa salguero, [facility] 11:50:33 Gestatio n period, 33 weeks [id number] Completed 201612/10/2020 33 weeks gestatio n of pregnanc y;Practi ce ID: 0001 Merissa salguero, [facility] 11:49:47 False labor at or after 37 complete d weeks of gestatio n 754742415 Completed 201612/10/2020 False labor at or after 37 complete d weeks of gestatio n;Practi ce ID: 0001 Merissa salguero, [facility] 11:49:27 Gestatio n period, 37 weeks [id number] Completed 201612/10/2020 37 weeks gestatio n of pregnanc y;Practi ce ID: 0001 Merissa salguero, [facility] 11:49:49 Pregnanc y, childbir th and puerperi um finding Completed 201612/10/2020 Encounte r for supervis ion of normal first pregnanc y, third trimeste r;Record ed Elsewher e: No Locat ion: [facility] S ource: EHR Hide Stretcher Hand arnav: N Practi ce ID: 0001 Armaan lable Time: 03:15:00 PM Merissa salguero, [facility] 11:50:31 False labor [id number] Completed 201612/10/2020 False labor, unspecif ied;Prac michael ID: 0001 Merissa salguero, [facility] 11:49:25 Lacerati on of female perineum Completed 201612/10/2020 First degree perineal lacerati on during delivery ;Practic e ID: 0001 Merissa salguero, [facility] 11:50:06 Single live from singleto n pregnanc y [id number] Completed 201612/10/2020 Single live ;Pr actice ID: 0001 Merissa salguero, [facility] 11:50:41 Gestatio n period, 39 weeks [id number] Completed 201612/10/2020 39 weeks gestatio n of pregnanc y;Practi ce ID: 0001 Merissa salguero, [facility] 11:49:52 Lochia finding Completed 201612/10/2020 Encounte r for routine postpart um follow-u p;Practi ce ID: 0001 Merissa salguero, [facility] 11:50:08 Finding of regulari ty of menstrua l cycle Completed 201712/10/2020 Irregula r menstrua tion, unspecif ied;Prac michael ID: 0001 Merissa salguero, [facility] 11:49:35 Vaginola bial hernia Completed 201712/10/2020 Other specifie d noninfla mmatory disorder s of vagina;R ecorded Elsewher e: No Locat ion: [facility] S ource: EHR Hide Stretcher Hand arnav: N Practi ce ID: 0001 Armaan lable Time: 09:00:00 AM Merissa Yue jose m [facility] 11:51:08 Syphilis test finding [id number] Completed 201812/10/2020 Encntr screen for infectio ns w sexl mode of transmis s;Record ed Elsewher e: No [facility] Hide Stretcher Hand arnav: N Carolineti ce ID: 0001 Armaan lable Time: 01:45:00 PM Merissa Turner jose m [facility] 11:50:58 Procedur e Completed 201812/10/2020 Encounte r for surveill ance of implanta ble subderma l contrace ptive;Re corded Elsewher e: No Locat ion: [facility] S ource: EHR Hide Stretcher Hand arnav: N Kathy ce ID: 0001 Armaan lable Time: 01:45:00 PM Merissa Turner jose m, [facility] 11:50:36 Infectio n screenin g Completed 201812/10/2020 Encounte r for screenin g for oth infec/pa rastc diseases ;Recorde d Elsewher e: No Locat ion: [facility] S ource: EHR Hide Stretcher Hand arnav: N Carolineti ce ID: 0001 Armaan lable Time: 10:30:00 AM Merissa Turner jose m [facility] 11:49:57 Gestatio n period, 8 weeks [id number] Completed 201912/10/2020 8 weeks gestatio n of pregnanc y;Record ed Elsewher e: No Locat ion: [facility] S ource: EHR Hide Stretcher Hand arnav: N Carolineti ce ID: 0001 Armaan lable Time: 02:30:00 PM eMrissa Turner jose m [facility] 11:49:54 Finding of viabilit y of pregnanc y [id number] Completed 201912/10/2020 Pregnanc y w inconclu sive viabilit y, unsp;Rec orded Elsewher e: No Locat ion: [facility] S ource: EHR Hide Stretcher Hand arnav: N Practi ce ID: 0001 Armaan lable Time: 02:30:00 PM Merissa salguero, [facility] 1 11:49:37 Antenata l screenin g Completed 201912/10/2020 Encounte r for antenata l screenin g for nuchal transluc ency;Rec orded Elsewher e: No Locat ion: [facility] S ource: EHR Hide Stretcher Hand arnav: N Practi ce ID: 0001 Armaan lable Time: 02:30:00 PM Merissa salguero, [facility] 1 11:49:10 Acute vaginiti s [id number] Completed 201912/10/2020 Vaginiti s;Record ed Elsewher e: No Locat ion: [facility] S ource: EHR Hide Stretcher Hand arnav: N Practi ce ID: 0001 Armaan lable Time: 02:15:00 PM Merissa salguero, [facility] 1 11:49:05 Pregnanc y [id number] Completed 201910/25/2020 Anthony salguero, [facility] 3 12:55:41 Low-lyin g placenta 239755004 Completed 2019 Juanito Mendieta MD [address], [place], [address], [place] [facility] 0 12:05:06 High risk pregnanc y due to history of labor 121559934 Completed 202006/05/2021 Merissa salguero, [facility] 1 11:51:59 Pregnanc y [id number] Completed 202001/21/[address] [facility] 3 12:55:41 SARS-CoV -2 Completed 2022 ASA, serial growth Anthony Spencer [facility] 3 12:55:34 Pregnanc y [id number] Completed 202208/10/[address] [facility] 3 12:55:41 Anemia [id number] Completed 2022 1 tab slowfe daily [facility] 3 12:55:34 Vitamin D deficien cy 24392447 Completed 2022 2000 [facility] 3 12:55:34 Problem Notes None recorded. Procedures Surgical History Date Name Laterality Status Provider Name and Address Organization Details Recorded Time 01/12/20 25 Date of Last Pap Smear completed [facility] 01/11/2025 16:22:49 12/26/19 21 termination of completed [facility] 11/06/2021 09:20:25 10/19/19 07 Tonsillectomy completed [facility] 07/10/2020 15:19:15 Imaging Results None recorded. Procedure Notes None recorded. Medical Equipment None Reported. Allergies No known drug allergies Medications Name Sig Start Date Stop Date Status Note LastModified by Organization Details LastModified Time nifedipin e ER 30 mg tablet,ex tended release 24 hr 07/10 completed Not Available Not Available Not Available amoxicill in 500 mg capsule TAKE 1 CAPSULE BY MOUTH EVERY 8 HOURS UNTIL GONE 07/18 completed Not Available Not Available Not Available doxycycli ne hyclate 100 mg capsule TAKE 1 CAPSULE BY MOUTH EVERY 12 HOURS FOR 10 DAYS 01/11 completed Not Available Not Available Not Available clindamyc in HCl 300 mg capsule TAKE 1 CAPSULE BY MOUTH EVERY 12 HOURS active Not Available Not Available No t Available loperamid e 2 mg capsule TAKE ONE CAPSULE BY MOUTH NEEDED FOR LOOSE STOOL AFTER EACH LOOSE STOOL UNTIL SYMPTOMS CONTROLL ED. DO NOT EXCEED 8 MG PER 24 HOURS 06/05 completed Not Available Not Available Not Available azithromy soledad 250 mg tablet TAKE 2 TABLETS BY MOUTH ON DAY 1 AND THEN TAKE 1 TABLET BY MOUTH ONCE A DAY ON DAY 2 THROUGH DAY 5 05/28 completed Not Available Not Available Not Available fluconazo le 150 mg tablet TAKE ONE TABLET BY MOUTH A ONE-TIME DOSE 01/26 completed Not Available Not Available Not Available ampicilli n 500 mg capsule take 1 capsule by oral route every 6 hours 1/2 hour before a meal or 2 hours after a meal 10/04 completed Prescrib ed Elsewher e: No Locat ion: [facility] odify By: [email or web address] trick En counter DateTime : 07/07/20 11:22:07 PM Not Available Not Available Not Available hydrocodo ne 5 mg-acetam inophen 325 mg tablet TAKE 1 TABLET BY MOUTH EVERY 6 HOURS NEEDED FOR PAIN active Not Available Not Available No t Available metronida zole 0.75 % (37.5 mg/5 gram) vaginal gel INSERT 1 APPLICAT ORFUL VAGINALL Y ONCE DAILY AT BEDTIME FOR 5 DAYS 01/11 completed Not Available Not Available Not Available ondansetr on HCl 4 mg tablet TAKE 1 TABLET BY MOUTH EVERY 6 HOURS NEEDED FOR NAUSEA AND VOMITING 06/05 completed Not Available Not Available Not Available Ferrex 150 mg iron capsule 07/10 completed Not Available Not Available Not Available metronida zole 500 mg tablet TAKE 1 TABLET BY MOUTH TWICE DAILY FOR 7 DAYS active Not Available Not Available No t Available valacyclo vir 500 mg tablet Take 1 tablet every 12 hours by oral route. active Not Available Not Available No t Available ketorolac 10 mg tablet TAKE 1 TABLET BY MOUTH EVERY 6 HOURS NEEDED FOR PAIN 01/11 completed Not Available Not Available Not Available Macrobid 100 mg capsule Take 1 capsule every 12 hours by oral route. 03/26 completed Not Available Not Available Not Available Microgest in FE 1/20 (28) 1 mg-20 mcg (21)/75 mg (7) tablet take 1 tablet by oral route every day 09/22 completed Prescrib ed Kirit e: No Locat ion: [facility] M odarsh By: clive arredondo DateTime : 10/04/20 02:00:00 PM Not Available Not Available Not Available amoxicill in 875 mg tablet TAKE 1 TABLET BY MOUTH TWICE DAILY UNTIL GONE 07/18 completed Not Available Not Available Not Available Depo-Prov era 150 mg/mL intramusc ular suspensio n Inject 1 mL every 3 months by intramus cular route. 01/02 completed patient given Depo injectio n into right hip lot [id number] Exp 11/2022 and patient will be due next through 09/04/20 21 Not Available Not Available Not Available terbutali ne 5 mg tablet 07/10 completed Not Available Not Available Not Available dexametha sone 2 mg tablet TAKE 1 TABLET BY MOUTH TWICE DAILY 01/11 completed Not Available Not Available Not Available sertralin e 25 mg tablet TAKE 1 TABLET BY MOUTH ONCE DAILY active Not Available Not Available No t Available monteluka st 10 mg tablet TAKE 1 TABLET BY MOUTH ONCE DAILY 06/05 completed Not Available Not Available Not Available ibuprofen 600 mg tablet 03/26 completed Not Available Not Available Not Available methylpre dnisolone 4 mg tablets in a dose pack TAKE BY MOUTH DIRECTED ON INSIDE OF PACKAGE 06/02 completed Not Available Not Available Not Available albuterol sulfate HFA 90 mcg/actua tion aerosol inhaler INHALE 2 PUFFS BY MOUTH 4 TIMES DAILY NEEDED 06/05 completed Not Available Not Available Not Available ondansetr on 4 mg disintegr ating tablet DISSOLVE 1 TABLET IN MOUTH EVERY 8 HOURS 01/11 completed Not Available Not Available Not Available fluticaso ne propionat e 50 mcg/actua tion nasal spray,miguel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 reportsno genital lesion. For vagina, patient reportsnormal vaginal discharge.Breast symptomsFor breast, patient reportsno breast pain,no breast lump, andno nipple discharge.Endocrine symptomsFor sexual complaints, patient reportsno sexual complaints,no pain during intercourse, andnormal libido. For menopausal symptoms, patient reportsno menopausal symptomsandnormal vaginal lubrication.Psychological symptomsFor psychological symptoms, patient reportsno depression,no anxiety, andno pmdd.Preventative measuresFor preventive measures, patient reportsencourage self breast examination,encourage regular exercise, andencourage no tobacco use.doing therapy with and without , hasnt tried sertraline yet, is planning to, has been nervousROS as noted in the HPI Danii Hamilton CNM [address], [place], [address], [facility] 01/11/2025 16:51:57 5 text/html Vaginal/Vulvar ProblemReported by Patientc/o odor and increased vaginal discharge x couple weeksc/o anxiety and depression no suicidal thoughts, quick to anger, managing work, 3 kidsdiscussed starting meds, pt agrees and will f/u with ruslan chacorta if no improvementROS as noted in the HPI Danii Hamilton CNM [address], [place], [address], [facility] 07/21/2025 14:06:07 OBGyn Episode Ob Episode Information Episode Created Date Number of Fetuses Patient Bloodtype Patient rh Status Prepregnancy Weight lbs Domestic Partner Domestic Partner Phone Father Name Junior Financial Analyst Status 01/31/20 20 1 CLOSED Fetus Data First Name Last Name Admitted to NICU Weight (g) Sex Living Outcome Pediatric Complications Fetus ID Race Codes Race Delivery Type 2433.65 4704 M Full Term 315 Vaginal Delivery Gerard Calculation Initial Gerard Date Initial Exam Date Initial Exam Provider Initial Ultrasound Date Last Menstrual Period Date Ultra Sound Weeks Gestation 0 Eighteen To Twenty Week Gerard Update Ultra Sound Date Fundal Height At Umbil Quickening Date Ultra Sound Latest Weeks Gestation Final Gerard Confirmed By Final Gerard Confirmed Date Final Gerard Date Ultra Sound Latest Days Gestation 0 0 Menstrual History Last Menstrual Date Menses Monthly On Bcp Conception Prior Menses Frequency Hcg Plus Date Menarche Onset Age Delivery Information Delivery Date Delivery Type Labor Anesthesia Weeks Gestation Incision Type Labor Labor Length Hrs Delivered By Post Complications Tubal Sterilization Discharge Date Comments 7 39 Peter Discharge Information Feeding Method Contraceptive Method Maternal HG B and HCT Levels Ob Episode Information Episode Created Date Number of Fetuses Patient Bloodtype Patient rh Status Prepregnancy Weight lbs Domestic Partner Domestic Partner Phone Father Name Junior Financial Analyst Status 01/31/20 20 1 O Positive 131 CLOSED Fetus Data First Name Last Name Admitted to NICU Weight (g) Sex Living Outcome Pediatric Complications Fetus ID Race Codes Race Delivery Type 2636.50 35 F true Prematur e Low HC 311 Vaginal Delivery Problems Problem Notes Problem Name Start Date End Date Resolution Snomed Code Not e Small head [id number] MFM - low normal growth overall 04/24/20 @ 7:30am w/ [facility], growth wnl, no further appts Gerard Calculation Initial Gerard Date Initial Exam Date Initial Exam Provider Initial Ultrasound Date Last Menstrual Period Date Ultra Sound Weeks Gestation 06/18/2020 01/31/2020 11/09/2019 09/10/2019 8 Eighteen To Twenty Week Gerard Update Ultra Sound Date Fundal Height At Umbil Quickening Date Ultra Sound Latest Weeks Gestation Final Gerard Confirmed By Final Gerard Confirmed Date Final Gerard Date Ultra Sound Latest Days Gestation 0 [email or web address] 02/15/2020 06/18/20 20 0 Pre- Flowsheet Flowsheet Date 01/31/2020 Rodrigues Score Blood Edema Fundus Height Fundus Units Glucose Ketones Leukocytes Nitrite Labor Signs Protein Cervic Dilation Cervic Effacement Cervic Station Type Weight in lbs Pre/Post Dialysis Refused BP Diastolic BP Location Tested BP Systolic BP Type Fetus Heart Rate Present Fetus Movement Comments Flowsheet Date 01/31/2020 Rodrigues Score Blood Edema Fundus Height Fundus Units Glucose Ketones Leukocytes Nitrite Labor Signs Protein Cervic Dilation Cervic Effacement Cervic Station none 21 cm trace Type Weight in lbs Pre/Post Dialysis Refused Weight 126.73652518961 BP Diastolic BP Location Tested BP Systolic BP Type 72 R arm 107 sitting Fetus Heart Rate Present A 150 Fetus Movement A Yes Comments Occasional numbness down rig ht leg after lying down but resolves within 5 minutes. No other complaints. Expecting baby girl Myliah Flowsheet Date 02/15/2020 Rodrigues Score Blood Edema Fundus Height Fundus Units Glucose Ketones Leukocytes Nitrite Labor Signs Protein Cervic Dilation Cervic Effacement Cervic Station neg none trace Type Weight in lbs Pre/Post Dialysis Refused Weight 129.251516091423 BP Diastolic BP Location Tested BP Systolic BP Type 70 108 Fetus Heart Rate Present A 160 Present Fetus Movement Comments patient states that having a bdominal pain, pelvic pain and pressure. Urine in office +3 leuk, trace protein, 6ph, 1.020 specfic gravity see office note Flowsheet Date 02/28/2020 Rodrigues Score Blood Edema Fundus Height Fundus Units Glucose Ketones Leukocytes Nitrite Labor Signs Protein Cervic Dilation Cervic Effacement Cervic Station Type Weight in lbs Pre/Post Dialysis Refused BP Diastolic BP Location Tested BP Systolic BP Type Fetus Heart Rate Present Fetus Movement Comments Flowsheet Date 02/28/2020 Rodrigues Score Blood Edema Fundus Height Fundus Units Glucose Ketones Leukocytes Nitrite Labor Signs Protein Cervic Dilation Cervic Effacement Cervic Station 24 trace Type Weight in lbs Pre/Post Dialysis Refused Weight 129.882648087955 BP Diastolic BP Location Tested BP Systolic BP Type 77 116 Fetus Heart Rate Present A 151 Fetus Movement A Yes Comments Flowsheet Date 12/05/2019 Rodrigues Score Blood Edema Fundus Height Fundus Units Glucose Ketones Leukocytes Nitrite Labor Signs Protein Cervic Dilation Cervic Effacement Cervic Station 12 trace Type Weight in lbs Pre/Post Dialysis Refused Weight 126.96566684182 BP Diastolic BP Location Tested BP Systolic BP Type 78 132 sitting Fetus Heart Rate Present A 161 Fetus Movement A No Comments This patient is a 19-year-ol d female presents for initial visit. She is a 4 para 1021 at 12 weeks gestation. She has no complaints. She does have some dizziness with positional changes of her head. I asked her to stay hydrated and to snack regularly. Healthy snacks. Flowsheet Date 01/04/2020 Rodrigues Score Blood Edema Fundus Height Fundus Units Glucose Ketones Leukocytes Nitrite Labor Signs Protein Cervic Dilation Cervic Effacement Cervic Station none trace Type Weight in lbs Pre/Post Dialysis Refused Weight 125.084776983364 BP Diastolic BP Location Tested BP Systolic BP Type 62 116 sitting Fetus Heart Rate Present A 157 Fetus Movement A Yes Comments OB [id number] pt states that olivares ving nausea on occasion.Second seq to be drawn today. Pt is having a gir Myliah. Flowsheet Date 03/26/2020 Rodrigues Score Blood Edema Fundus Height Fundus Units Glucose Ketones Leukocytes Nitrite Labor Signs Protein Cervic Dilation Cervic Effacement Cervic Station 28 trace Type Weight in lbs Pre/Post Dialysis Refused Weight 128.938871212836 BP Diastolic BP Location Tested BP Systolic BP Type 73 113 Fetus Heart Rate Present A 145 Fetus Movement A Yes Comments This patient is a 19-year-ol d 1 at 28 weeks gestation who presents for routine care. She has a baby with small head measurements. She is to follow-up with MFM tomorrow. Flowsheet Date 04/10/2020 Rodrigues Score Blood Edema Fundus Height Fundus Units Glucose Ketones Leukocytes Nitrite Labor Signs Protein Cervic Dilation Cervic Effacement Cervic Station 28 trace Type Weight in lbs Pre/Post Dialysis Refused Weight 128.491113413828 BP Diastolic BP Location Tested BP Systolic BP Type 68 110 Fetus Heart Rate Present A 145 Fetus Movement A Yes Comments Small head circumference, olivares ving growth ultrasounds with [facility], growth in the 10th percentile Flowsheet Date 2020 Rodrigues Score Blood Edema Fundus Height Fundus Units Glucose Ketones Leukocytes Nitrite Labor Signs Protein Cervic Dilation Cervic Effacement Cervic Station neg none 30 trace Type Weight in lbs Pre/Post Dialysis Refused Weight 129.674306821358 BP Diastolic BP Location Tested BP Systolic BP Type 60 103 Fetus Heart Rate Present A 154 Present Fetus Movement A Yes Comments PATIENT IS HAVING PAIN AND D ISCOMFORT AND SOME CONTRACTIONS, PTL precautions reviewed Flowsheet Date 05/08/2020 Rodrigues Score Blood Edema Fundus Height Fundus Units Glucose Ketones Leukocytes Nitrite Labor Signs Protein Cervic Dilation Cervic Effacement Cervic Station neg none 32 trace 1cm 60% -2 Type Weight in lbs Pre/Post Dialysis Refused Weight 130.261251580906 BP Diastolic BP Location Tested BP Systolic BP Type 54 97 Fetus Heart Rate Present Fetus Movement A Yes Comments patient states that having c ontractions, pink and mucus discharge, and leg cramps reviewed labor precautions, pt to LD for further monitoring Flowsheet Date 05/14/2020 Rodrigues Score Blood Edema Fundus Height Fundus Units Glucose Ketones Leukocytes Nitrite Labor Signs Protein Cervic Dilation Cervic Effacement Cervic Station 33 Type Weight in lbs Pre/Post Dialysis Refused Weight 131.784958006540 BP Diastolic BP Location Tested BP Systolic BP Type 65 101 Fetus Heart Rate Present A 145 Fetus Movement A Decreased Comments patient reports decreased fe sydnie movement. To Have an NST today. the patient was admitted for signs and symptoms of labor. She was treated with steroids tocolytics. She was sent her cervix was 3, she is on p.o. urine terbutaline scheduled nifedipine. Flowsheet Date 05/14/2020 Rodrigues Score Blood Edema Fundus Height Fundus Units Glucose Ketones Leukocytes Nitrite Labor Signs Protein Cervic Dilation Cervic Effacement Cervic Station Type Weight in lbs Pre/Post Dialysis Refused BP Diastolic BP Location Tested BP Systolic BP Type Fetus Heart Rate Present Fetus Movement Comments Flowsheet Date 07/10/2020 Rodrigues Score Blood Edema Fundus Height Fundus Units Glucose Ketones Leukocytes Nitrite Labor Signs Protein Cervic Dilation Cervic Effacement Cervic Station Type Weight in lbs Pre/Post Dialysis Refused Weight 127.760767088967 BP Diastolic BP Location Tested BP Systolic BP Type 71 110 Fetus Heart Rate Present Fetus Movement Comments Menstrual History Last Menstrual Date Menses Monthly On Bcp Conception Prior Menses Frequency Hcg Plus Date Menarche Onset Age 1109/10/2019 Genetic Screening And Infection History Question Response Note Mental Retardation/Autism false Patient's Age Will Be 35 Years Or Older At Estim ated Date of Delivery false Thalassemia (Togolese, Luxembourgish, Mediterranean, Or Background): MCV < 80 false Neural Tube Defect (Meningomyelocele, Spina Bifi da, Or Anencephaly) false Congenital Heart Defect false Down Syndrome false Jose-Sachs (eg, Congregational, Cajun, Dominican-Belgian) f alse Kim Disease false Sickle Cell Disease Or Trait () false Hemophilia Or Other Blood Disorders false Muscular Dystrophy false Cystic Fibrosis false Garrett's Chorea false Intellectual Disability/Autism false If Yes, Was Person Tested For Fragile X? false Other Inherited Genetic Or Chromosomal Disorder false Maternal Metabolic Disorder (eg, Type 1 Diabetes , PKU) false Patient Or Baby's Father Had A Child With Defects Not Listed Above false Recurrent Loss, Or A Stillbirth false Medications (including Suppl ements, Vitamins, Herbs, OTC Drugs), Illicit/Recreational Drugs, Alcohol false If Yes, Agent(s) And Strength/Dosage false Any Other Genetic History false Live With Someone With TB Or Exposed To TB false Patient Or Partner Has History Of Genital Herpes false Rash Or Viral Illness Since Last Menstrual Perio d false History Of STD, Gonorrhea, Chlamydia, HPV, Syphi lis false Other Infection History false History of HIV false History of Hepatitis false Prior GBS-infected child false Hemoglobinopathy Or Carrier false Other Structural Defect false Recent Travel History Outside of Country false Delivery Information Delivery Date Delivery Type Labor Anesthesia Weeks Gestation Incision Type Labor Labor Length Hrs Delivered By Post Complications Tubal Sterilization Discharge Date Comments 0 [facility] 35.6 true Discharge Information Feeding Method Contraceptive Method Maternal HG B and HCT Levels Ob Episode Information Episode Created Date Number of Fetuses Patient Bloodtype Patient rh Status Prepregnancy Weight lbs Domestic Partner Domestic Partner Phone Father Name Junior Financial Analyst Status 01/31/20 20 1 CLOSED Fetus Data First Name Last Name Admitted to NICU Weight (g) Sex Living Outcome Pediatric Complications Fetus ID Race Codes Race Delivery Type , Spontane ous 313 Gerard Calculation Initial Gerard Date Initial Exam Date Initial Exam Provider Initial Ultrasound Date Last Menstrual Period Date Ultra Sound Weeks Gestation 0 Eighteen To Twenty Week Gerard Update Ultra Sound Date Fundal Height At Umbil Quickening Date Ultra Sound Latest Weeks Gestation Final Gerard Confirmed By Final Gerard Confirmed Date Final Gerard Date Ultra Sound Latest Days Gestation 0 0 Menstrual History Last Menstrual Date Menses Monthly On Bcp Conception Prior Menses Frequency Hcg Plus Date Menarche Onset Age Delivery Information Delivery Date Delivery Type Labor Anesthesia Weeks Gestation Incision Type Labor Labor Length Hrs Delivered By Post Complications Tubal Sterilization Discharge Date Comments 7 SAB Discharge Information Feeding Method Contraceptive Method Maternal HG B and HCT Levels Ob Episode Information Episode Created Date Number of Fetuses Patient Bloodtype Patient rh Status Prepregnancy Weight lbs Domestic Partner Domestic Partner Phone Father Name Junior Financial Analyst Status 01/31/20 20 1 DELETED Gerard Calculation Initial Gerard Date Initial Exam Date Initial Exam Provider Initial Ultrasound Date Last Menstrual Period Date Ultra Sound Weeks Gestation 0 Eighteen To Twenty Week Gerard Update Ultra Sound Date Fundal Height At Umbil Quickening Date Ultra Sound Latest Weeks Gestation Final Gerard Confirmed By Final Gerard Confirmed Date Final Gerard Date Ultra Sound Latest Days Gestation 0 0 Menstrual History Last Menstrual Date Menses Monthly On Bcp Conception Prior Menses Frequency Hcg Plus Date Menarche Onset Age Delivery Information Delivery Date Delivery Type Labor Anesthesia Weeks Gestation Incision Type Labor Labor Length Hrs Delivered By Post Complications Tubal Sterilization Discharge Date Comments 7 Ectopic Discharge Information Feeding Method Contraceptive Method Maternal HG B and HCT Levels Ob Episode Information Episode Created Date Number of Fetuses Patient Bloodtype Patient rh Status Prepregnancy Weight lbs Domestic Partner Domestic Partner Phone Father Name Junior Financial Analyst Status 05/24/20 20 1 DELETED Gerard Calculation Initial Gerard Date Initial Exam Date Initial Exam Provider Initial Ultrasound Date Last Menstrual Period Date Ultra Sound Weeks Gestation 0 Eighteen To Twenty Week Gerard Update Ultra Sound Date Fundal Height At Umbil Quickening Date Ultra Sound Latest Weeks Gestation Final Gerard Confirmed By Final Gerard Confirmed Date Final Gerard Date Ultra Sound Latest Days Gestation 0 0 Menstrual History Last Menstrual Date Menses Monthly On Bcp Conception Prior Menses Frequency Hcg Plus Date Menarche Onset Age Delivery Information Delivery Date Delivery Type Labor Anesthesia Weeks Gestation Incision Type Labor Labor Length Hrs Delivered By Post Complications Tubal Sterilization Discharge Date Comments 0 35.6 true prophylax is Discharge Information Feeding Method Contraceptive Method Maternal HG B and HCT Levels Ob Episode Information Episode Created Date Number of Fetuses Patient Bloodtype Patient rh Status Prepregnancy Weight lbs Domestic Partner Domestic Partner Phone Father Name Junior Financial Analyst Status 12/21/19 21 1 O Positive 123 CLOSED Fetus Data First Name Last Name Admitted to NICU Weight (g) Sex Living Outcome Pediatric Complications Fetus ID Race Codes Race Delivery Type , Induced [id number] Problems Problem Notes Problem Name Start Date End Date Resolution Snomed Code Not e Migraine [id number] Past history of pr emature delivery [id number] [place] Gerard Calculation Initial Gerard Date Initial Exam Date Initial Exam Provider Initial Ultrasound Date Last Menstrual Period Date Ultra Sound Weeks Gestation 07/04/2021 12/20/2020 12/07/2020 09/27/2020 10 Eighteen To Twenty Week Gerard Update Ultra Sound Date Fundal Height At Umbil Quickening Date Ultra Sound Latest Weeks Gestation Final Gerard Confirmed By Final Gerard Confirmed Date Final Gerard Date Ultra Sound Latest Days Gestation 0 [email or web address] 12/20/2020 07/05/20 21 0 Pre- Flowsheet Flowsheet Date 12/20/2020 Rodrigues Score Blood Edema Fundus Height Fundus Units Glucose Ketones Leukocytes Nitrite Labor Signs Protein Cervic Dilation Cervic Effacement Cervic Station 12 Type Weight in lbs Pre/Post Dialysis Refused Weight 123.543359506463 BP Diastolic BP Location Tested BP Systolic BP Type 66 R arm 100 sitting Fetus Heart Rate Present A 165 Fetus Movement Comments this patient is a 20-year-ol d multiparous 11 weeks and 6 days gestation, who presents for initial care. She has a history of delivery. Will start Darden at 16 weeks. Otherwise she has no problems. She she does have migraine headache. I will send in a migraine medication. Menstrual History Last Menstrual Date Menses Monthly On Bcp Conception Prior Menses Frequency Hcg Plus Date Menarche Onset Age 1209/27/2020 Genetic Screening And Infection History Question Response Note Mental Retardation/Autism false Patient's Age Will Be 35 Years Or Older At Estim ated Date of Delivery false Thalassemia (Togolese, Luxembourgish, Mediterranean, Or Background): MCV < 80 false Neural Tube Defect (Meningomyelocele, Spina Bifi da, Or Anencephaly) false Congenital Heart Defect false Down Syndrome false Jose-Sachs (eg, Congregational, Cajun, Dominican-Belgian) f alse Kim Disease false Sickle Cell Disease Or Trait () false Hemophilia Or Other Blood Disorders false Muscular Dystrophy false Cystic Fibrosis false Garrett's Chorea false Intellectual Disability/Autism false If Yes, Was Person Tested For Fragile X? false Other Inherited Genetic Or Chromosomal Disorder false Maternal Metabolic Disorder (eg, Type 1 Diabetes , PKU) false Patient Or Baby's Father Had A Child With Defects Not Listed Above false Recurrent Loss, Or A Stillbirth false Medications (including Suppl ements, Vitamins, Herbs, OTC Drugs), Illicit/Recreational Drugs, Alcohol false If Yes, Agent(s) And Strength/Dosage false Any Other Genetic History false Live With Someone With TB Or Exposed To TB false Patient Or Partner Has History Of Genital Herpes false Rash Or Viral Illness Since Last Menstrual Perio d false History Of STD, Gonorrhea, Chlamydia, HPV, Syphi lis false Other Infection History false History of HIV false History of Hepatitis false Prior GBS-infected child false Hemoglobinopathy Or Carrier false Other Structural Defect false Recent Travel History Outside of Country false Delivery Information Delivery Date Delivery Type Labor Anesthesia Weeks Gestation Incision Type Labor Labor Length Hrs Delivered By Post Complications Tubal Sterilization Discharge Date Comments 1 12.4 Discharge Information Feeding Method Contraceptive Method Maternal HG B and HCT Levels Ob Episode Information Episode Created Date Number of Fetuses Patient Bloodtype Patient rh Status Prepregnancy Weight lbs Domestic Partner Domestic Partner Phone Father Name Junior Financial Analyst Status 12/30/19 23 1 CLOSED Fetus Data First Name Last Name Admitted to NICU Weight (g) Sex Living Outcome Pediatric Complications Fetus ID Race Codes Race Delivery Type Ectopic [id number] Gerard Calculation Initial Gerard Date Initial Exam Date Initial Exam Provider Initial Ultrasound Date Last Menstrual Period Date Ultra Sound Weeks Gestation 0 Eighteen To Twenty Week Gerard Update Ultra Sound Date Fundal Height At Umbil Quickening Date Ultra Sound Latest Weeks Gestation Final Gerard Confirmed By Final Gerard Confirmed Date Final Gerard Date Ultra Sound Latest Days Gestation 0 0 Menstrual History Last Menstrual Date Menses Monthly On Bcp Conception Prior Menses Frequency Hcg Plus Date Menarche Onset Age Delivery Information Delivery Date Delivery Type Labor Anesthesia Weeks Gestation Incision Type Labor Labor Length Hrs Delivered By Post Complications Tubal Sterilization Discharge Date Comments Discharge Information Feeding Method Contraceptive Method Maternal HG B and HCT Levels Ob Episode Information Episode Created Date Number of Fetuses Patient Bloodtype Patient rh Status Prepregnancy Weight lbs Domestic Partner Domestic Partner Phone Father Name Junior Financial Analyst Status 01/27/20 23 1 O Positive 118 CLOSED Fetus Data First Name Last Name Admitted to NICU Weight (g) Sex Living Outcome Pediatric Complications Fetus ID Race Codes Race Delivery Type 3798.83 3 M true Full Term 71997 Vaginal Delivery Problems Problem Notes CF negative 03/2017SMA negat mino 10/2019 Problem Name Start Date End Date Resolution Snomed Code Not e Excessive salivation 40806801 SARS-CoV-2 01/01/2023 563267132 ASA, ser ial growth Premature delivery 830803369 Anemia 06/18/2023 MEDICATION 881496799 1 tab sl owfe daily Vitamin D deficiency 06/18/2023 MEDICATION 8654060 6 2000 iu daily Polyhydramnios [id number] 07/15 07/22 A1C WNL 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 Gerard Calculation Initial Gerard Date Initial Exam Date Initial Exam Provider Initial Ultrasound Date Last Menstrual Period Date Ultra Sound Weeks Gestation 08/15/2023 01/26/2023 12/19/2022 11/08/2022 6 Eighteen To Twenty Week Gerard Update Ultra Sound Date Fundal Height At Umbil Quickening Date Ultra Sound Latest Weeks Gestation Final Gerard Confirmed By Final Gerard Confirmed Date Final Gerard Date Ultra Sound Latest Days Gestation 0 [email or web address] 01/26/2023 08/15/20 23 0 Pre- Flowsheet Flowsheet Date 01/26/2023 Rodrigues Score Blood Edema Fundus Height Fundus Units Glucose Ketones Leukocytes Nitrite Labor Signs Protein Cervic Dilation Cervic Effacement Cervic Station Type Weight in lbs Pre/Post Dialysis Refused Weight 124.297141524395 BP Diastolic BP Location Tested BP Systolic BP Type 63 R arm 102 sitting Fetus Heart Rate Present Fetus Movement Comments Is a 22-year-old 6 p mckenna 1132 at 11 weeks gestation who presents for initial care. She has no complaints today. We reviewed care in detail. She does have a delivery. She has also been exposed to COVID. She is taking baby aspirin, she will have serial growth ultrasounds. Flowsheet Date 02/25/2023 Rodrigues Score Blood Edema Fundus Height Fundus Units Glucose Ketones Leukocytes Nitrite Labor Signs Protein Cervic Dilation Cervic Effacement Cervic Station neg none none trace Type Weight in lbs Pre/Post Dialysis Refused Weight 128.739272074846 BP Diastolic BP Location Tested BP Systolic BP Type 71 113 Fetus Heart Rate Present A 159 Present Fetus Movement A Yes Comments patient is having some nause a and states that is spitting a lot. discussed, education done, precautions reviewed. f/u 4 weeks anatomy Flowsheet Date 03/25/2023 Rodrigues Score Blood Edema Fundus Height Fundus Units Glucose Ketones Leukocytes Nitrite Labor Signs Protein Cervic Dilation Cervic Effacement Cervic Station Type Weight in lbs Pre/Post Dialysis Refused BP Diastolic BP Location Tested BP Systolic BP Type Fetus Heart Rate Present Fetus Movement Comments Flowsheet Date 03/25/2023 Rodrigues Score Blood Edema Fundus Height Fundus Units Glucose Ketones Leukocytes Nitrite Labor Signs Protein Cervic Dilation Cervic Effacement Cervic Station neg none none trace Type Weight in lbs Pre/Post Dialysis Refused Weight 133.246539917457 BP Diastolic BP Location Tested BP Systolic BP Type 70 107 Fetus Heart Rate Present Fetus Movement A Yes Comments anatomy complete, ptyalism b othersome but managing, reviewed precautions, education done going to [place] soon, travel precautions f/u 4 weeks Flowsheet Date 04/22/2023 Rodrigues Score Blood Edema Fundus Height Fundus Units Glucose Ketones Leukocytes Nitrite Labor Signs Protein Cervic Dilation Cervic Effacement Cervic Station Type Weight in lbs Pre/Post Dialysis Refused BP Diastolic BP Location Tested BP Systolic BP Type Fetus Heart Rate Present Fetus Movement Comments Flowsheet Date 04/22/2023 Rodrigues Score Blood Edema Fundus Height Fundus Units Glucose Ketones Leukocytes Nitrite Labor Signs Protein Cervic Dilation Cervic Effacement Cervic Station neg trace none trace Type Weight in lbs Pre/Post Dialysis Refused Weight 142.567402551327 BP Diastolic BP Location Tested BP Systolic BP Type 67 102 Fetus Heart Rate Present Fetus Movement A Yes Comments patient is having some pelvi c pain and swelling. EFW 91%, doing well, some vaginal pain, rec v support belt on [employer], ok for magnesium at hs for leg cramps, plan 4 week growth and GCT at next visit Flowsheet Date 05/20/2023 Rodrigues Score Blood Edema Fundus Height Fundus Units Glucose Ketones Leukocytes Nitrite Labor Signs Protein Cervic Dilation Cervic Effacement Cervic Station Type Weight in lbs Pre/Post Dialysis Refused BP Diastolic BP Location Tested BP Systolic BP Type Fetus Heart Rate Present Fetus Movement Comments Flowsheet Date 05/20/2023 Rodrigues Score Blood Edema Fundus Height Fundus Units Glucose Ketones Leukocytes Nitrite Labor Signs Protein Cervic Dilation Cervic Effacement Cervic Station neg none none trace Type Weight in lbs Pre/Post Dialysis Refused Weight 145.2788096301 BP Diastolic BP Location Tested BP Systolic BP Type 67 104 Fetus Heart Rate Present Fetus Movement A Yes Comments patient is having some pelvi c pain, contractions, nausea and vomiting. discussed comfort measures, efw 74%, growth in 4, GCT today f/u 2 weeks, wants 39 week IOL if possible Flowsheet Date 06/03/2023 Rodrigues Score Blood Edema Fundus Height Fundus Units Glucose Ketones Leukocytes Nitrite Labor Signs Protein Cervic Dilation Cervic Effacement Cervic Station neg none none trace Type Weight in lbs Pre/Post Dialysis Refused Weight 148.724655786452 BP Diastolic BP Location Tested BP Systolic BP Type 73 117 Fetus Heart Rate Present Fetus Movement A Yes Comments patient is having some contr actions, nausea, vomiting, leg cramps and discharge. rx for zofran, ptl precautions, works overnights discussed maternity leave 36-37 weeks, start valtrex next visit has f/u growth Flowsheet Date 06/17/2023 Rodrigues Score Blood Edema Fundus Height Fundus Units Glucose Ketones Leukocytes Nitrite Labor Signs Protein Cervic Dilation Cervic Effacement Cervic Station Type Weight in lbs Pre/Post Dialysis Refused BP Diastolic BP Location Tested BP Systolic BP Type Fetus Heart Rate Present Fetus Movement Comments Flowsheet Date 06/17/2023 Rodrigues Score Blood Edema Fundus Height Fundus Units Glucose Ketones Leukocytes Nitrite Labor Signs Protein Cervic Dilation Cervic Effacement Cervic Station neg none none trace Type Weight in lbs Pre/Post Dialysis Refused Weight 147.155990221064 BP Diastolic BP Location Tested BP Systolic BP Type 61 98 Fetus Heart Rate Present Fetus Movement A Yes Comments patient is having some light headed, dizzy, shortness of breathe and contractions. 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 doing well, start valtrex 36 weeks, precautions reviewed f/u 2 weeks Flowsheet Date 07/15/2023 Rodrigues Score Blood Edema Fundus Height Fundus Units Glucose Ketones Leukocytes Nitrite Labor Signs Protein Cervic Dilation Cervic Effacement Cervic Station Type Weight in lbs Pre/Post Dialysis Refused BP Diastolic BP Location Tested BP Systolic BP Type Fetus Heart Rate Present Fetus Movement Comments Flowsheet Date 07/15/2023 Rodrigues Score Blood Edema Fundus Height Fundus Units Glucose Ketones Leukocytes Nitrite Labor Signs Protein Cervic Dilation Cervic Effacement Cervic Station neg none none trace 1cm 40% -2 Type Weight in lbs Pre/Post Dialysis Refused Weight 153.433476676061 BP Diastolic BP Location Tested BP Systolic BP Type 71 123 Fetus Heart Rate Present Fetus Movement A Yes Comments patient is having some contr actions and discharge. efw 85%, polyhydramnios, vertex plan IOL 07/11, gbs done today, precautions reviewed Flowsheet Date 07/22/2023 Rodrigues Score Blood Edema Fundus Height Fundus Units Glucose Ketones Leukocytes Nitrite Labor Signs Protein Cervic Dilation Cervic Effacement Cervic Station Type Weight in lbs Pre/Post Dialysis Refused BP Diastolic BP Location Tested BP Systolic BP Type Fetus Heart Rate Present Fetus Movement Comments Flowsheet Date 07/22/2023 Rodrigues Score Blood Edema Fundus Height Fundus Units Glucose Ketones Leukocytes Nitrite Labor Signs Protein Cervic Dilation Cervic Effacement Cervic Station neg none none trace 3cm 70% -2 Type Weight in lbs Pre/Post Dialysis Refused Weight 155.78350809528 BP Diastolic BP Location Tested BP Systolic BP Type 75 109 Fetus Heart Rate Present Fetus Movement A Yes Comments patient is having some contr actions. precautions reviewed, IOL scheduled, bpp 05/26 f/u one week Flowsheet Date 07/29/2023 Rodrigues Score Blood Edema Fundus Height Fundus Units Glucose Ketones Leukocytes Nitrite Labor Signs Protein Cervic Dilation Cervic Effacement Cervic Station Type Weight in lbs Pre/Post Dialysis Refused BP Diastolic BP Location Tested BP Systolic BP Type Fetus Heart Rate Present Fetus Movement Comments Flowsheet Date 07/29/2023 Rodrigues Score Blood Edema Fundus Height Fundus Units Glucose Ketones Leukocytes Nitrite Labor Signs Protein Cervic Dilation Cervic Effacement Cervic Station neg none none trace 3cm 80% -2 Type Weight in lbs Pre/Post Dialysis Refused Weight 158.526380297787 BP Diastolic BP Location Tested BP Systolic BP Type 79 117 Fetus Heart Rate Present Fetus Movement A Yes Comments patient is having some contr actions. polyhydramnios, if ruptures to hospital, head ballotable discussed small possibility of cord prolapse labor precautions f/u one week with us Flowsheet Date 08/05/2023 Rodrigues Score Blood Edema Fundus Height Fundus Units Glucose Ketones Leukocytes Nitrite Labor Signs Protein Cervic Dilation Cervic Effacement Cervic Station Type Weight in lbs Pre/Post Dialysis Refused BP Diastolic BP Location Tested BP Systolic BP Type Fetus Heart Rate Present Fetus Movement Comments Flowsheet Date 08/05/2023 Rodrigues Score Blood Edema Fundus Height Fundus Units Glucose Ketones Leukocytes Nitrite Labor Signs Protein Cervic Dilation Cervic Effacement Cervic Station neg none none trace 4cm 50% -2 Type Weight in lbs Pre/Post Dialysis Refused Weight 160.699048160601 BP Diastolic BP Location Tested BP Systolic BP Type 69 112 Fetus Heart Rate Present Fetus Movement A Yes Comments patient states that having s ome pain, contractions and discharge. reviewed precautions, iol thursday efw 94% Menstrual History Last Menstrual Date Menses Monthly On Bcp Conception Prior Menses Frequency Hcg Plus Date Menarche Onset Age 0111/08/2022 Genetic Screening And Infection History Question Response Note Mental Retardation/Autism false Patient's Age Will Be 35 Years Or Older At Estim ated Date of Delivery false Thalassemia (Togolese, Luxembourgish, Mediterranean, Or Background): MCV < 80 false Neural Tube Defect (Meningomyelocele, Spina Bifi da, Or Anencephaly) false Congenital Heart Defect false Down Syndrome false Jose-Sachs (eg, Congregational, Cajun, Dominican-Belgian) f alse Kim Disease false Sickle Cell Disease Or Trait () false Hemophilia Or Other Blood Disorders false Muscular Dystrophy false Cystic Fibrosis false Jerome's Chorea false Intellectual Disability/Autism false If Yes, Was Person Tested For Fragile X? false Other Inherited Genetic Or Chromosomal Disorder false Maternal Metabolic Disorder (eg, Type 1 Diabetes , PKU) false Patient Or Baby's Father Had A Child With Defects Not Listed Above false Recurrent Loss, Or A Stillbirth false Medications (including Suppl ements, Vitamins, Herbs, OTC Drugs), Illicit/Recreational Drugs, Alcohol false If Yes, Agent(s) And Strength/Dosage false Any Other Genetic History false Live With Someone With TB Or Exposed To TB false Patient Or Partner Has History Of Genital Herpes false Rash Or Viral Illness Since Last Menstrual Perio d false History Of STD, Gonorrhea, Chlamydia, HPV, Syphi lis false Other Infection History false History of HIV false History of Hepatitis false Prior GBS-infected child false Hemoglobinopathy Or Carrier false Other Structural Defect false Recent Travel History Outside of Country false Delivery Information Delivery Date Delivery Type Labor Anesthesia Weeks Gestation Incision Type Labor Labor Length Hrs Delivered By Post Complications Tubal Sterilization Discharge Date [facility] Anemia, Excessive salivatio n, Herpes simplex, Polyhydra mnios, Premature delivery, SARS-CoV- 2, Vitamin D deficienc y Discharge Information Feeding Method Contraceptive Method Maternal HG B and HCT Levels
[2025-08-22 17:05] LABS: Alanine Aminotransferase 11 U/L (6-35); Albumin Level 4.5 g/dL (3.5-5.1); Alkaline Phosphatase 54 U/L (38-126); Anion Gap 6 mmol/L (4-12); Aspartate Amino Transferase 17 U/L (14-36); Bilirubin,Total 0.8 mg/dL (0.2-1.3); Blood Urea Nitrogen 10 mg/dL (7-17); Calcium 8.5 mg/dL (8.4-10.2); Carbon Dioxide 30 mmol/L (22-30); Chloride 100 mmol/L (98-107); Estimated Glomerular Filt Rate > 60; Glucose 92 mg/dL (65-110); Lipase 125 U/L (23-300); Potassium 3.7 mmol/L (3.4-5.0); Sodium 136 mmol/L (137-145); Total Protein 7.3 g/dL (6.3-8.2)
== END 2025-08-22 16:16 | disposition home or self-care (01) ==
LOC: ANHLAB 16:16
PROVIDERS: Visit Provider Surgery
DX: R10.11 Right upper quadrant pain (principal)
CPT/HCPCS: 36415; 80053; 83690; 85025

== ENCOUNTER 2025-08-25 12:08 | Outpatient (CLI) | payer OTHER, SELFPAY ==
--- OUTSIDE RECORDS SUMMARY | 2024-08-08 02:30 | XMS_ITS | Continuity of Care Document ---
Author Organization [facility] Address [address] [place] [address] Phone Care Team Providers Care Ice Scraper Name Role Phone Kenny Isabel DMD Unavailable [...] Diagnoses Date Provider Providers Copied on Encounter [facility] , [address], [place], [place], [address], tel:[phone] [facility] caries on smooth surface penetrating into pulp Chalo Cox. [address], [place], [place], [address]. tel:[phone] Referring Provider: Kenny Isabel [address], [place], [address]. tel:[phone] [facility] , [address], [place], [place], [address], tel:[phone] [facility] Encounter for dental exam and cleaning w abnormal findings Chalo Cox. [address], [place], [place], [address]. tel:[phone] Referring Provider: Kenny Isabel, [address], [place], [address]. tel:[phone] [facility] , [address], [place], [place], [address], tel:[phone] [facility] No Information Isabel Kenny. [address], [place], [place], [address]. tel:[phone] Referring Provider: Kenny Isabel, [address], [place], [address]. tel:[phone] Family History Family Member Type Diagnosis Age At Onset No Information Payers Payer name Insurance type Covered alliance party ID Authoriza tion(s) No Information Social History [...]
--- NOTE | ~2025-08-25 | NM_ITS ---
EXAM/PROCEDURE: NM_HEPATWP_NM HISTORY: RUQ abdominal pain, nausea, and vomiting COMPARISON: Ultrasound from August 22 TECHNIQUE: Standard technique for nuclear hepatobiliary scintigraphy performed. Radiotracer: 5.0 mCi technetium 99m Choletec FINDINGS: Prompt liver uptake noted diffusely. The gallbladder is seen at approximately 20 minutes. Gallbladder ejection fraction calculated at 56% following administration of Kinevac. IMPRESSION: No evidence of cystic duct obstruction. Gallbladder ejection fraction of 56% within normal limits. Reviewed, dictated and finalized at location A. [place] IMPRESSION: No evidence of cystic duct obstruction. Gallbladder ejection fraction of 56% wi thin normal limits.
--- OUTSIDE RECORDS SUMMARY | 2025-08-25 12:27 | XMS_ITS | Clinical Summary ---
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 Gender Identity Not on file Sexual Orientation Not on file Last Filed Vital Signs Vital Sign Reading Time Taken Comments Blood Pressure 110/72 08/22/2024 8:31 AM LUDLOW 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 Pulse 83 08/22/2024 8:31 AM LUDLOW 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 Temperature 36.4 C (97.5 F) 06/28/2024 12:49 PM CDT Respiratory Rate 16 06/28/2024 4:23 PM CDT Oxygen Saturation 99% 06/28/2024 4:23 PM CDT Inhaled Oxygen Concentration - - Weight 63.5 kg (140 lb) 12/06/2024 8:55 AM LUDLOW 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 Height 160 cm (5' 3) 12/06/2024 8:55 AM LUDLOW 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 Body Mass Index 24.8 12/06/2024 8:55 AM 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
--- OUTSIDE RECORDS SUMMARY | 2025-08-25 12:27 | XMS_ITS | Data Portability ---
Author Organization [employer] [facility] Address [address] [place] [address] Assessment Encounter Date Assessment Date Assessment LastModified [...] recorded. Lab test, urine 2022 023 [facility]not[facility]ke [facility], [address] [place], [address], 3 14:45:13 beta-HCG, quantitati ve, serum or plasma 2021 022 [facility], [address] [place], [address], 2 13:48:07 beta-HCG, quantitati ve, serum or plasma 2021 022 [facility], [address] [place], [address], 2 12:47:28 Referral None recorded. Procedures None recorded. Surgeries None recorded. Imaging None recorded. Medication Orders ibuprofen 800 mg tablet 2021 023 [facility], [address] [place], [address], 3 14:21:11 Patient TargetsNo targets recorded. Patient [...] er of this assay . Not Available [facility] [address] [place], [address], 10/11/2022 12:47:28 10/14/2010/15/2022 HCG, TOTAL , QUANT [...] has not been valid ated [facility] this assay . Not Available [address], [address], 10/15/2022 13:48:07 10/24/19 23 10/25/2022 HCG, TOTAL [...] has not been valid ated by the [facility] actur er of this assay . Not Available [address], [address], 10/25/2022 11:38:44 12/10/19 23 12/10/2022 pregn willie test, urine HCG positi ve Not Available [facility] [address] [place], [address], 12/10/2022 14:32:23 Result Notes None recorded. Procedures Surgical History Date Name Laterality Status Provider Name and Address Organization Details Recorded Time 10/19/2020 Date of Last Pap Smear completed [facility] 09/24/2023 14:05:42 Imaging Results None recorded. Procedure [...] Updated DateTime 12/10/2022 160.02 cm 20.4 kg/m2 74545.12 g 100/62 mm[Hg] Julieth Rutledge [employer] IV 12/10/2022 14:24:23 Date Recorded Body height Body mass index (BMI) Body weight Body temperature Systolic And Diastolic Provider Name and Address Organization Details Last Updated DateTime 10/10/2022 160.02 cm 20.2 kg/m2 49747.2 5 g 97.4 [degF] 110/70 mm[Hg] Dana Gaytan [employer] IV 10:59:02 Date Recorded Body height Body mass index (BMI) Body weight Body temperature Systolic And Diastolic Provider Name and Address Organization Details Last Updated DateTime 10/14/2022 160.02 cm 20.8 kg/m2 71809.0 3 g 97.4 [degF] 108/58 mm[Hg] Iona Nuñez [employer] IV 11:31:51 Social History Question Answer Notes LastModified by Organizat ion Details LastModified Time Tobacco Smoking Status Never Smoker Julieth salguero [employer] [facility] 12/10/2022 14:22:40 Are You Blind Or [...] Functional Status Question Answer Note LastModified by [employer] Details LastModified Time Do you use any illicit or recreational drugs? No Information not available 12/10/2022 What is your level of alcohol consumption? None Information not available 12/10/2022 Are you currently employed? Yes Information not available 10/14/2022 What is your exercise level? Occasional Information not available 12/10/2022 Mental Status None recorded. Family History Nothing Reported. Medical History Condition Response Other Cancer N High Blood Pressure N Colon Cancer N Cytomegalovirus N Hyperthyroidism N Herpes (HSV) N Breast Cancer N Blood Transfusion N MRSA N Lung Cancer N Hypothyroidism N Depression N Incontinence N Panic Attacks N Neurological Disorder N Deep Vein Thrombosis N Anxiety Disorder N Autoimmune disease N Arthritis N Tuberculosis/Positive PPD N Shingles N Polycystic Ovarian Syndrome N Cervical Cancer N Hematuria N Chlamydia N Varicosities N Stroke N Crohn's Disease N Seasonal allergies N Alzheimer's/Dementia N COPD/Emphysema N HPV/Genital Warts N Endometriosis N IBS (Irritable Bowel Syndrome) N History of Abnormal Pap N High Cholesterol N Liver Disease N Kidney Infection N Fibromyalgia N Ulcer N Kidney Disease N HIV N Gallbladder disease N Sickle Cell Disease/Trait N Von Willebrand disease N ADD/ADHD N Eating Disorder N Diabetes Mellitus (non-insulin dependent ) N Anemia N Ovarian Problems N Multiple Sclerosis N Gonorrhea N Frequent Urinary Tract infections N Osteopenia N Headaches/migraines N GERD (reflux) N Ovarian Cancer N Diabetes (insulin dependent) N Seizures/Epilepsy N Fibroids N Asthma N Heart Attack N Lupus N Endometrial Cancer N Rubella [...] ICD10 Code Diagnosis IMO Codes Diagnosis [facility] [id number] [facility] [address] [place] [address] 10/10/2022 10:52:46 10/10/2022 12:39:07 Past history of ectopic 035344053 Z87.59 [id number] Kevin Gann MD [facility] [address] [place] [address] 10/14/2022 11:01:04 10/23/2022 14:13:42 Ectopic 15877311 O00.90 will get weekly until <5 discussed at length fertility and increased chances for ectopic and she needs a quant vandana with a pos home test and then we will do n US when quant is 1200 and we will have her try again after 3 rd menses DISCUSSED NO OPREGNANCY FOR 12 WEREKS TO LET THE TUBE HEAL [id number] [facility] [address] [place] [address] 12/10/2022 14:10:34 12/10/2022 17:29:23 test positive 013103654 Z32.01 Past pregn willie history of ectopic 248770596 Z87.59 Menstrual period late 84 854480 N92.6 Health Concerns Section Related Observation LastModified by Organization Detai ls LastModified Time None Recorded Concern Status LastModified by Organization Details LastModified Time None Recorded Advance Directives Directive None Recorded Payers Insurance Date Sequence Insurance Name Policy Number Policy Reyes Covered Member ID Reyes Member ID Guarantor Name 02/02/2023 1 [facility] ON OR AFTER 04/18/21 (MEDICAID REPLACEMENT - HMO) Lila Lira [id number] Lila Lira Notes Date Note Type Note Provider Name and Address Organization Details Recorded Time 10/10/2022 text/html Ectopic PregnancyReported by PatientHPIFor associated symptoms, patient reportspelvic cramping. For onset/timing, patient reportslmp:(aug.25).ROS as noted in the [facility] Desyla 22 y/o presents for ER follow up Ectopic . [facility] [place], [address], [employer] IV 10/10/2022 12:36:38 10/14/2022 text/html Patient is here for an ER follow up on an Ectopic . She was seen in the Er 10/05-10/06. She was seen at [facility]. and spotting off and on ahnd Quant has decreased nicely Kevin Gann MD [address] [place] [address], [phone], [facility] [employer] [facility] IV 10/23/2022 11:38:31 12/10/2022 text/html ROS as noted in the HPI Patient here for a missed period she has a history of ectopic back in 10/09. Her last HCG on 10/24/2022 was WNL. [facility] [address] [facility], [place], [address], [employer] [facility] IV 12/10/2022 15:31:28 OBGyn Episode No OBEpisode recorded.
--- OUTSIDE RECORDS SUMMARY | 2025-08-25 12:28 | XMS_ITS | Data Portability ---
Author Organization [facility] Address [address] [place] [address] [place] [address] Assessment Encounter Date Assessment Date Assessment LastModified [...] Organization Details Last Modified Time Details Appointments MED CHECK 2025 10:15A Dulce Hamilton CNM Not available Not available Not available [facility]-EST 2025 10:15A Dulce Hamilton CNM Not available Not available Not available Lab None recorded. Referral None recorded. Procedures None recorded. Surgeries None recorded. Imaging US, obstetric , follow-up 2022 023 [email or web address] [address], [address], [place], [address], 08/05/2023 20:16:13 US, obstetric , biophysic al profile + non-stres s test 2022 023 [email or web address] O[facility], [address], [address], [place], [address], 08/05/2023 20:16:13 Medication Orders clindamyc in HCl 300 [address] capsule [address] [facility] [address], [address] [place], [address], 07/21/2025 12:01:54 Zoloft 25 mg tablet 2024 025 [facility] [address], [address] [place] [address], [address], 07/21/2025 12:14:06 Zoloft 50 mg tablet 2024 025 [facility] [address], [address] [place] [address], [address], 07/21/2025 12:14:05 Metrogel Vaginal 0.75 % (37.5 mg/5 gram) 2023 024 [email or web address] [facility] [address], [address] [place] [address], [address], 01/11/2025 16:21:53 Zoloft 25 mg tablet [address] [facility] [address], [address] [place] [address], [address], 01/20/2024 10:41:07 Zoloft 50 mg tablet 2023 025 [facility] [address], [address] [place] [address], [address], 01/11/2025 16:22:07 ondansetr on 4 mg disintegr ating tablet 2023 025 [facility] [address], [address] [place] [address], [address], 01/11/2025 16:22:03 Patient TargetsNo targets recorded. Patient InstructionsNo instructions recorded. Reason for Referral None Reported. Results Created Date Observation Date Name Description Value Unit Range Abnormal Flag Note LastModifiedBy Organization Detail LastModifiedTime 07/22/20 23 07/22/2023 HEMOG LOBIN A1C hemoglobin A1C 5.2 % 0-5.6 The Ameri can [facility] [employer] i[employer] n recom mends that a prima ry goal of thera py shoul d be a HBA1C of < 7% and that physi cians shoul d reeva luate the treat ment regim en in patie nts with HBA1C value s consi stent ly > 8%. <5.7% Debora l 5.7 - 6.4% Incre ased risk for diabe zandra >=6.5 % Diagn ostic of diabe zandra <7.0% Goal of thera py >8.0% Actio n sugge sted Not Available [facility] (Lab) [address] [facility], [place], [address], 07/23/2023 01:53:04 01/20/20 24 01/20/2024 VAGIN ITIS/ VAGIN OSIS, DNA PROBE hermelinda sp. detection, direct probe Negati ve negati ve Not Available [facility] (Lab) [address] [place], [address], 01/21/2024 15:32:13 01/20/20 24 01/20/2024 VAGIN ITIS/ VAGIN OSIS, DNA PROBE gardnerella vag. detection, direct probe Positi ve negati ve abnormal Not Available [facility] (Lab) [address] [place], [address], 01/21/2024 15:32:13 01/20/20 24 01/20/2024 VAGIN ITIS/ VAGIN OSIS, DNA PROBE trichomonas vag. detection, direct probe Negati ve negati ve Not Available [facility] (Lab) [address] [place], [address], 01/21/2024 15:32:13 01/20/20 24 01/20/2024 CT/GC (CARMELITA) , SWAB chlamydia trachomatis, PCR Negati ve negati ve Not Available [facility] (Lab) [address] [facility], [place], [address], 01/21/2024 15:32:14 01/20/20 24 01/20/2024 CT/GC (CARMELITA) , SWAB neisseria gonorrhoeae, PCR Negati ve negati ve Not Available [facility] (Lab) [address] [facility], [place], [address], 01/21/2024 15:32:14 01/12/20 25 01/11/2025 IMAGE GUIDE D PAP, REFLE X HPV IF ASCUS ONLY image guided Pap, reflex HPV ASCUS only SEE RESULT S BELOW CASE REPOR T: Cytol ogy Gynec ologi santy Repor t Case: [id number] Autho lyle ella Provi ac: Danii Hernandez, BRANDIE Colle cted: 01/11 1709 Order ing Locat ion: [place] [facility] Recei lelo: 01/12 0230 First Scree n: Lily Reynoso , CT Rescr een: Lamar Boothe, CT Speci men: Scree jack Pap - Image d, Cervi x STATE MENT OF ADEQU ACY: Satis facto ry for evalu ation Trans forma tion zone compo nent prese nt ----- ----- ----- ----- ----- ----- ----- ----- ----- ----- ----- ----- ----- ----- ----- ----- ----- ---- FINAL DIAGN OSIS: Negat mino for Intra epith elial Lesio n or Bryanna nolen (NIL) . Shift in [...] as clini diaz colon nted. Not Available [facility] (Lab) [address], [place], [address], 01/17/2025 11:04:37 07/21/2007/21/2025 CT/GC AND TRICH OMONA S VAGIN DHRUV (RRNA ), URINE chlamydia trachomatis, PCR Negati ve negati ve Not Available [facility] (Lab) [address], [place], [address], 07/22/2025 12:50:54 07/21/2007/21/2025 CT/GC AND TRICH OMONA S VAGIN DHRUV (RRNA ), URINE neisseria gonorrhoeae, PCR Negati ve negati ve Not Available [facility] (Lab) [address] [facility], [place], [address], 07/22/2025 12:50:54 07/21/2007/21/2025 CT/GC AND TRICH OMONA S VAGIN DHRUV (RRNA ), URINE trichomonas vaginalis ribosomal RNA (rrna) Negati ve negati ve 49_CL _SOUR CETVG : Urine - Bladd er Not Available [facility] (Lab) [address] [facility], [place], [address], 07/22/2025 12:50:54 07/15/20 23 07/15/2023 US, obste tric, follo w-up No observ ation record ed. [email or web address] [facility] [address], [place], [address], 07/15/2023 11:33:29 07/15/20 23 07/15/2023 US, obste tric, follo w-up No observ ation record ed. [email or web address] Linda [address], [place], [address], 07/16/2023 10:31:32 07/22/2007/22/2023 US, obste tric, bioph ysica l profi le No observ ation record ed. [email or web address] [facility] [address], [place], [address], 07/22/2023 13:20:44 07/22/2007/22/2023 US, obste tric, follo w-up No observ ation record ed. Linda [address], [place], [address], 07/23/2023 16:51:12 07/29/2007/29/2023 US, obste tric, bioph ysica l profi le No observ ation record ed. [facility] [address], [place], [address], 07/29/2023 13:32:36 07/29/2007/29/2023 US, obste tric, bioph ysica l profi le No observ ation record ed. [email or web address] Linda [address], [place], [address], 07/30/2023 10:50:46 08/05/2008/05/2023 US, obste tric, follo w-up No observ ation record ed. [facility] [address], [place], [address], 08/05/2023 12:38:43 08/05/2008/05/2023 US, obste tric, bioph ysica l profi le + non-s tress test No observ ation record ed. [facility] [address], [place], [address], 08/05/2023 12:38:55 08/05/2008/05/2023 US, obste tric, follo w-up No observ ation record ed. [email or web address] Linda [address], [place], [address], 08/06/2023 13:17:16 Result Notes None recorded. Problems Name Problem SNOMED Code Status Onset Date Resolution Date Notes Provider Name and Address Organization Details Recorded Time Migraine 17962599 Completed Merissa salguero, [facility] 17:46:43 Past pregnanc y history of prematur e delivery [id number] Ignacio salguero, [facility] 04/05/202 1 17:46:43 Prematur e delivery 316269760 Completed Anthony Spencer [facility] 3 12:55:34 Excessiv e salivati on 28277468 Completed Anthony Spencer [facility] 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 [facility] 3 12:55:34 Polyhydr amnios 31359762 Completed 07/15 10 A1C WNL Anthony Spencer [facility] 3 12:55:34 Small head 903790257 Completed MFM - low normal growth overall 04/24/20 @ 7:30am w/ [facility], growth wnl, no further appts Anthony Spencer [facility] 1 16:57:08 Speciali zed medical examinat ion Completed 201412/10/2020 Routine gynecolo gical examinat ion;Prac micheal ID: [address] [facility] 11:50:51 Pregnanc y test negative 308129677 Completed 201412/10/2020 Negative Pregnanc y Test;Pra ctice ID: 0001 Merissa Turner [facility], [facility] 11:50:25 Speciali zed medical examinat ion Completed 201412/10/2020 Other specifie d chlamydi al diseases ;Practic e ID: 0001 Merissa Turner [facility], [facility] 11:50:53 Venereal disease screenin g Completed 201412/10/2020 Screenin g examinat ion for venereal disease; Practice ID: 0001 Merissa salguero [facility] 11:51:11 Implanta tion of subcutan eous contrace ptive Completed 201412/10/2020 Insertio n of implanta ble subderma l contrace ptive;Pr actice ID: 0001 Merissa salguero [facility] 11:50:01 Subcutan eous contrace ptive implant present 358693243 Completed 201412/10/2020 Removal Or Check Nexplano n;Practi ce ID: 0001 Merissa salguero [facility] 11:50:56 Carbuncl e of trunk Completed 201412/10/2020 CARBUNCL E OF TRUNK;Pr actice ID: 0001 Merissa salguero [facility] 11:49:15 Carbuncl e of skin AND/OR subcutan eous tissue Completed 201412/10/2020 Carbuncl e and furuncle of other specifie d sites;Pr actice ID: 0001 Merissa salguero [facility] 11:49:12 Adult health examinat ion Completed 201412/10/2020 Routine general medical examinat ion at a health care facility ;Practic e ID: 0001 Merissa salguero [facility] 11:49:[address] Concept Completed 201412/10/2020 Encounte r for surveill ance of other contrace ptives;P ractice ID: 0001 Merissa salguero [facility] 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 11:50:[address] Concept Completed 201512/10/2020 Encntr for routine child health exam w/o abnormal findings ;Recorde d Elsewher e: No Locat ion: [facility] S ource: EHR Glaze Handler arnav: N Practi ce ID: 0001 Armaan lable Time: 11:30:00 AM Merissa Turner [facility] 11:50:46 Urogenit al infectio n by Trichomo lien vaginali s [id number] Completed 201512/10/2020 Urogenit al trichomo niasis, unspecif ied;Breezy rded Elsewher e: No Locat ion: [facility] S ource: EHR Glaze Handler arnav: N Practi ce ID: 0001 Armaan lable Time: 11:30:00 AM Merissa salguero [facility] 11:51:06 Trichomo nal vulvovag initis 17121555 Completed 201512/10/2020 Trichomo nal vulvovag initis;P ractice ID: [address] [facility] 11:51:00 Miscarri age 18807780 Completed 201512/10/2020 Complete or unsp spontane ous without complica tion;Pra ctice ID: 0001 Merissa Turner [facility], [facility] 11:50:19 Situatio n with explicit context Completed 201612/10/2020 Suprvsn of preg w poor reprodct v or obstet hx, first tri;Prac michael ID: 0001 Merissa salguero, [facility] 11:50:44 Gestatio n less than 9 weeks 894354752 Completed 201612/10/2020 Less than 8 weeks gestatio n of pregnanc y;Practi ce ID: 0001 Merissa Yue salguero, [facility] 11:49:39 Finding of contents of cervix 280256519 Completed 201612/10/2020 Weeks of gestatio n of pregnanc y not specifie d;Practi ce ID: 0001 Merissa Yue salguero, [facility] 11:49:29 Secondar y amenorrh ea 690100458 Completed 201612/10/2020 Secondar y amenorrh ea;Pract ice ID: 0001 Merissa Turner [facility], [facility] 11:50:39 Pregnanc y detectio n examinat ion Completed 201612/10/2020 Encounte r for pregnanc y test, result positive ;Practic e ID: [address] [facility] 11:50:23 Gestatio n period, 10 weeks 50345583 Completed 201612/10/2020 10 weeks gestatio n of pregnanc y;Record ed Elsewher e: No Locat ion: [facility] S ource: EHR Glaze Handler arnav: N Practi ce ID: 0001 Armaan lable Time: 10:30:00 AM Merissa salguero [facility] 11:49:41 Finding of trunk structur e Completed 201612/10/2020 Oth diseases and conditio ns compl preg/chl dbrth;Pr actice ID: 0001 Merissa Turner [facility] 11:51:03 Dizzines s and giddines s 437234617 Completed 201612/10/2020 Dizzines s and giddines s;Practi ce ID: 0001 Merissa salguero, [facility] 11:49:22 Pregnanc y, childbir th and puerperi um finding Completed 201612/10/2020 Encounte r for supervis ion of normal 1st pregnanc y, 1st trimeste r;Record ed Elsewher e: No Locat ion: [facility] S ource: EHR Glaze Handler arnav: N Practi ce ID: 0001 Armaan lable Time: 01:45:00 PM Merissa salguero, [facility] 1 11:50:27 Pregnanc y, childbir th and puerperi um finding Completed 201612/10/2020 Encounte r for supervis ion of normal 1st pregnanc y, 2nd trimeste r;Record ed Elsewher e: No Locat ion: [facility] S ource: EHR Glaze Handler arnav: N Practi ce ID: 0001 Armaan lable Time: 10:45:00 AM Merissa salguero, [facility] 1 11:50:29 Pregnanc y, childbir th and puerperi um finding Completed 201612/10/2020 Oth pregnanc y related conditio ns, second trimeste r;Practi ce ID: 0001 Merissa salguero, [facility] 1 11:49:18 Gestatio n period, 20 weeks 15921602 Completed 201612/10/2020 20 weeks gestatio n of pregnanc y;Practi ce ID: 0001 Merissa salguero, [facility] 11:49:43 Gestatio n period, 28 weeks 51220732 Completed 201612/10/2020 28 weeks gestatio n of pregnanc y;Record ed Elsewher e: No [facility] Gl[facility] Handler arnav: N Practi ce ID: 0001 Armaan lable Time: 11:00:00 AM Merissa salguero, [facility] 1 11:49:45 Insuffic ient weight gain of pregnanc y 11762738 Completed 201612/10/2020 Low weight gain in pregnanc y, third trimeste r;Practi ce ID: 0001 Merissa salguero, [facility] 11:50:03 Normal pregnanc y in multigra seun [id number] 26998 Completed 201612/10/2020 Encounte r for suprvsn of normal pregnanc y, third trimeste r;Record ed Elsewher e: No Locat ion: [facility] S ource: [facility] Glaze Handler arnav: N Practi ce ID: 0001 Armaan lable Time: 10:45:00 AM Merissa salguero, [facility] 11:50:21 Prematur e labor 1297986 Completed 201612/10/2020 labor without delivery , third trimeste r;Practi ce ID: 0001 Merissa salguero, [facility] 11:50:33 Gestatio n period, 33 weeks 39250444 Completed 201612/10/2020 33 weeks gestatio n of pregnanc y;Practi ce ID: 0001 Merissa salguero, [facility] 11:49:47 False labor at or after 37 complete d weeks of gestatio n 064585960 Completed 201612/10/2020 False labor at or after 37 complete d weeks of gestatio n;Practi ce ID: 0001 Merissa salguero, [facility] 11:49:27 Gestatio n period, 37 weeks 11942398 Completed 201612/10/2020 37 weeks gestatio n of pregnanc y;Practi ce ID: 0001 Merissa salguero, [facility] 11:49:49 Pregnanc y, childbir th and puerperi um finding Completed 201612/10/2020 Encounte r for supervis ion of normal first pregnanc y, third trimeste r;Record ed Elsewher e: No Locat ion: [facility] S ource: EHR Glaze Handler arnav: N Practi ce ID: 0001 Armaan lable Time: 03:15:00 PM Merissa salguero, [facility] 11:50:31 False labor 646465846 Completed 201612/10/2020 False labor, unspecif ied;Prac michael ID: 0001 Merissa salguero, [facility] 11:49:25 Lacerati on of female perineum Completed 201612/10/2020 First degree perineal lacerati on during delivery ;Practic e ID: 0001 Merissa salguero, [facility] 11:50:06 Single live from singleto n pregnanc y 503621425 Completed 201612/10/2020 Single live ;Pr actice ID: 0001 Merissa salguero, [facility] 11:50:41 Gestatio n period, 39 weeks 93988027 Completed 201612/10/2020 39 weeks gestatio n of pregnanc y;Practi ce ID: 0001 Merissa salguero, [facility] 11:49:52 Lochia finding Completed 201612/10/2020 Encounte r for routine postpart um follow-u p;Practi ce ID: 0001 Merissa salguero, [facility] 11:50:08 Finding of regulari ty of menstrua l cycle Completed 201712/10/2020 Irregula r menstrua tion, unspecif ied;Prac michael ID: 0001 Merissa salguero, [facility] 11:49:35 Vaginola bial hernia Completed 201712/10/2020 Other specifie d noninfla mmatory disorder s of vagina;R ecorded Elsewher e: No Locat ion: [facility] S ource: EHR Glaze Handler arnav: N Kathy ce ID: 0001 Armaan lable Time: 09:00:00 AM Merissa salguero, [facility] 1 11:51:08 Syphilis test finding [id number] Completed 201812/10/2020 Encntr screen for infectio ns w sexl mode of transmis s;Record ed Elsewher e: No Locat ion: [facility] S ource: EHR Glaze Handler arnav: N Carolineti ce ID: 0001 Armaan lable Time: 01:45:00 PM Merissa salguero, [facility] 1 11:50:58 Procedur e Completed 201812/10/2020 Encounte r for surveill ance of implanta ble subderma l contrace ptive;Re corded Elsewher e: No Locat ion: [facility] S ource: EHR Glaze Handler arnav: N Carolineti ce ID: 0001 Armaan lable Time: 01:45:00 PM Merissa salguero, [facility] 11:50:36 Infectio n screenin g Completed 201812/10/2020 Encounte r for screenin g for oth infec/pa rastc diseases ;Recorde d Elsewher e: No Locat ion: [facility] S ource: EHR Glaze Handler arnav: N Carolineti ce ID: 0001 Armaan lable Time: 10:30:00 AM Merissa salguero, [facility] 11:49:57 Gestatio n period, 8 weeks 33669917 Completed 201912/10/2020 8 weeks gestatio n of pregnanc y;Record ed Elsewher e: No Locat ion: [facility] S ource: EHR Glaze Handler arnav: N Carolineti ce ID: 0001 Armaan lable Time: 02:30:00 PM Merissa Turner null, [facility] 1 11:49:54 Finding of viabilit y of pregnanc y 592830176 Completed 201912/10/2020 Pregnanc y w inconclu sive viabilit y, unsp;Rec orded Elsewher e: No Locat ion: [facility] S ource: EHR Glaze Handler arnav: N Carolineti ce ID: 0001 Armaan lable Time: 02:30:00 PM Merissa Yue salguero, [facility] 1 11:49:37 Antenata l screenin g Completed 201912/10/2020 Encounte r for antenata l screenin g for nuchal transluc ency;Rec orded Elsewher e: No Locat ion: [facility] S ource: EHR Glaze Handler arnav: N Kathy ce ID: 0001 Armaan lable Time: 02:30:00 PM Merissaserina Turner null, [facility] 1 11:49:10 Acute vaginiti s 43126066 Completed 201912/10/2020 Vaginiti s;Record ed Elsewher e: No Locat ion: [facility] S ource: EHR Glaze Handler arnav: N Kathy ce ID: 0001 Armaan lable Time: 02:15:00 PM Merissa salguero, [facility] 1 11:49:05 Pregnanc y 26633842 Completed 201910/25/2020 Anthony Spencer null, [facility] 3 12:55:41 Low-lyin g placenta 315220380 Completed 2019 Juanito Mendieta MD [address], [place], [address], [facility] 0 12:05:06 High risk pregnanc y due to history of labor 668044055 Completed 202006/05/2021 Merissa Turner [facility], [facility] 1 11:51:59 Pregnanc y 92140797 Completed 202001/21/[address] [facility] 3 12:55:41 SARS-CoV -2 Completed 2022 ASA, serial growth Anthony Spencer [facility] 3 12:55:34 Pregnanc y 51845538 Completed 202208/10/[address] [facility] 3 12:55:41 Anemia 965724766 Completed 2022 1 tab slowfe daily [email or web address] Spencer [facility] 3 12:55:34 Vitamin D deficien 17225786 Completed 2022 2000 iu daily [facility] [[email or web address] Spencer [facility] 3 12:55:34 Problem Notes None recorded. Procedures Surgical History Date Name Laterality Status Provider Name and Address Organization Details Recorded Time 01/12/20 25 Date of Last Pap Smear completed Merissa Turner [facility] 01/11/2025 16:22:49 12/26/19 21 [facility] 11/06/2021 09:20:25 10/19/19 07 Tonsillectomy completed [facility] 07/10/2020 15:19:15 Imaging Results None recorded. [...] Prescrib ed Elsewher e: No Locat ion: [facility] odify By: [email or web address] trick En counter DateTime : 07/07/20 15 11:22:07 PM Not Available Not Available Not [...] Not Available Not Available Microgest in FE 11/07 (28) 1 mg-20 mcg (21)/75 mg (7) tablet take 1 tablet by oral route every day 09/22 completed Prescrib ed Elsewher e: No [facility]at ion: [facility] M odify By: clive arredondo DateTime : 10/04/20 02:00:00 [...] Depo injectio n into right hip lot [id number] Exp 11/2022 and patient will be due [...] Prescrib ed Elsewher e: No Locat ion: [facility] odify By: [place] DateTime : 07/03/20 15 01:15:00 PM Not Available Not Available Not [...] Prescrib ed Elsewher e: Yes Loca tion: [facility] odify By: [email or web address] trick En counter DateTime : 11/16/19 15 02:30:00 PM Not Available Not Available Not Available 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 INSERT [...] Updated DateTime 01/11/2025 162.56 cm 25.2 kg/m2 48099.08 g 111/75 mm[Hg] Merissa Turner [facility] 01/11/2025 16:21:16 Date Recorded Body height Body mass index (BMI) Body weight Systolic And Diastolic Provider Name and Address Organization Details Last Updated DateTime 01/20/2024 162.56 cm 24.2 kg/m2 36539.52 g 108/55 mm[Hg] Merissa Turner [facility] 01/20/2024 10:19:43 Date Recorded Body height Body mass index (BMI) Body weight Systolic And Diastolic Provider Name and Address Organization Details Last Updated DateTime 07/21/2025 162.56 cm 24 kg/m2 95305.93 g 123/67 mm[Hg] Lara Brooks [facility] 07/21/2025 11:45:59 Date Recorded Body height Body mass index (BMI) Body weight Systolic And Diastolic Provider Name and Address Organization Details Last Updated DateTime 08/05/2023 162.56 cm 27.5 kg/m2 13343.779 2 g 112/69 mm[Hg] Merissa Turner [facility] 08/05/2023 12:36:41 Date Recorded Body height Body mass index (BMI) Body weight Systolic And Diastolic Provider Name and Address Organization Details Last Updated DateTime 09/16/2023 162.56 cm 23.9 kg/m2 91533.34 g 106/66 mm[Hg] Merissa Turner [facility] 09/16/2023 11:10:03 Social History Question Answer Notes LastModified by Organizat ion Details LastModified Time Tobacco Smoking Status Never Smoker Merissa Turner [facility] 06/05/2021 11:53:53 If You Are , What Was Your Level Of Alcohol Consumption Prior To ? Occasional [email or web address] Information not available 06/05/2021 Are You Blind Or Do You Have Difficulty Seeing? No [email or web address] Information n ot available 01/22/2021 What Is Your Level Of Caffeine Consumption? Occasional [email or web address] Information not available 01/22/2021 In The 14 Days Before Symptom Onset, Have You Had Close Contact With A Laboratory-confirm ed COVID-19 While That Case Was Ill? No [email or web address] Information n ot available 01/22/2021 In The 14 Days Before Symptom Onset, Have You Had Close Contact With A Person Who Is Under Investigation For COVID-19 While That Person Was Ill? No Information not available 01/22/2021 Have You Been To An Area Known To Be High Risk For COVID-19? No [email or web address] Information not available 01/22/2021 Are You Deaf Or Do You Have Serious Difficulty Hearing? No [email or web address] Information not available 01/22/2021 What Type Of Diet Are You Following? REGULAR [email or web address] Information n ot available 01/22/2021 What Is The Highest Grade Or Level Of School You Have Completed Or The Highest Degree You Have Received? [id number] Information not available 07/21/2025 Are There Any Guns Present In Your Home? No [email or web address] Information not available 07/21/2025 What Was The Date Of Your Most Recent Tobacco Screening? 01/11/2025 [email or web address] Information not available 01/11/2025 Have You Ever Been Counseled For Unhealthy Alcohol Use? No [email or web address] Information not available 06/05/2021 Do You Use Protection During Sex? No Information not available 07/21/2025 Do You Use Your Seat Belt Or Car Seat Routinely? Yes [email or web address] Information not available 01/22/2021 Are You Sexually Active? Yes [email or web address] Information not available 07/21/2025 Do You Have Smoke And Carbon Monoxide Detectors In Your Home? Yes [email or web address] Information not available 01/22/2021 How Much Tobacco Do You Smoke? No [email or web address] Information not available 2020 Smoking Pre- No [email or web address] Information not available 06/05/2021 Do You Use Sunscreen Routinely? Yes [email or web address] Information not available 01/22/2021 Has Tobacco Cessation Counseling Been Provided? No [email or web address] Information not available 06/05/2021 Have You Used IV Drugs? No [email or web address] Information not available 06/05/2021 Do You Have Difficulty Walking Or Climbing Stairs? No Information not available 01/02/2022 Sex: Unknown Functional Status Question Answer Note LastModified by Organizat ion Details LastModified Time Do you use any illicit or recreational drugs? No [email or web address] Information not available 01/22/2021 What is your level of alcohol consumption? Occasional [email or web address] Information not available 02/15/2020 Do you or have you ever used smokeless tobacco? Never used smokeless tobacco [email or web address] Information not available 06/05/2021 Are you currently employed? Yes Information not available 07/21/2025 Are you able to walk independently without assistance or assistive devices? YESWOREST [email or web address] Information not available 01/22/2021 Are you able to care for yourself independently? Yes Information not available 01/02/2022 Do you have difficulty dressing, bathing, grooming, or toileting? No Information not available 01/02/2022 Do you or have you ever used e-cigarettes or vape? Never used electronic cigarettes [email or web address] Information not available 06/05/2021 What is your exercise level? Occasional [email or web address] Information not available 02/15/2020 Mental Status Question Answer Note LastModified by Organization D etails LastModified Time Do you feel stressed (tense, restless, nervous, or anxious, or unable to sleep at night)? [id number] [email or web address] Information not available 01/22/2021 Family History Relationship [...] N Drug/Latex Allergies/Reactions N Blood Transfusion N Lung Disease N Dermatologic Disorders N Defects or Inherited Disease N Breast Problem N Gestational Diabetes N Hematologic disorders N Anesthesia Complications N History of STI Y Deep Vein Thrombosis N Polycystic ovary syndrome N Anxiety Disorder N Autoimmune disease N Arthritis N Polyps N Infertility N History of abnormal pap Y Acid Reflux (GERD) N Cancer N Varicosities N Stroke N Neurologic/Epilepsy N Endometriosis N High Cholesterol N Fibromyalgia N Headaches N Kidney Disease N Heart Problems N [...] Note [id number] Dana De La Cruz MD [facility] [address],[place] [address] 01/31/2020 10:34:42 02/01/2020 12:31:57 Second trimester 25226469 Z34.92 650 MD Etta [place] [address],[place] [address] 01/31/2020 10:34:42 02/03/2020 10:18:04 screening 449944965 Z36.3 screening for malformation 576446367 Z36.3 2464 Danii Hamilton CNM [facility] [address],[place] [address] 02/15/2020 10:11:32 02/15/2020 12:23:39 Acute pelvic pain 511677327 R10.2 plan maternity support [facility] act infectious disease 30354838 N39.0 culture pending 3960 MD Rachell Hammond [address],[place] [address] 02/28/2020 10:41:39 02/28/2020 12:05:37 Small for gestational age fetus 989153913 O36.5999 O44.42 Z3A.24 3964 MD Rachell Hammond [address],[place] [address] 02/28/2020 10:44:58 02/28/2020 12:09:20 Routine care 168769211 Z34.82 Small for gestational age fetus 089759717 O36.5999 O44.42 Z3A.24 6876 MD Rachell Hammond [address],[place] [address] 03/26/2020 10:22:08 03/26/2020 12:06:37 Routine care 983600286 Z34.82 [id number] MD Rachell [place] [address],[place] [address] 04/10/2020 11:23:11 04/10/2020 11:50:56 Routine care 185425336 Z34.82 [id number] Danii Hamilton [facility] [address],[place] [address] 2020 11:26:51 2020 12:34:16 Routine care 190606976 Z34.93 [id number] Danii Hamilton [facility] [address],[place] [address] 05/08/2020 11:56:16 05/08/2020 12:33:02 Routine care 134183986 Z34.93 [id number] Juanito Mendieta MD [facility] [address],[place] [address] 05/14/2020 16:19:59 05/14/2020 17:03:48 Routine care 337571702 Z34.82 [id number] Juanito Mendieta MD [facility] [address],[place] [address] 05/14/2020 17:04:10 05/14/2020 17:29:43 condition affecting obstetrical care of mother 930043590 O36.8130 [id number] Danii Hamilton [facility] [address],[place] [address] 07/10/2020 14:54:40 07/10/2020 16:28:32 care 227676648 Z39.2 [id number] Danii Hamilton [facility] [address],[place] [address] 12/07/2020 14:17:51 12/07/2020 15:41:20 Gynecologic examination 71992959 Z01.419 Amenorrhea 87100059 N91. 2 [id number] MD Rachell Hammond [address],[place] [address] 12/07/2020 15:14:54 12/07/2020 16:10:51 test positive 413869582 Z32.01 [id number] Juanito Mendieta MD [facility] [address],[place] [address] 12/11/2020 15:43:13 12/11/2020 16:07:34 Pre-existing maternal disease complicating 5037018590 6106 Z3A.00 [id number] Juanito Mendieta MD [facility] [address],[place] [address] 12/20/2020 16:05:57 12/20/2020 16:43:19 screening 527385047 Z36.82 [id number] Juanito Mendieta MD [facility] [address],[place] [address] 12/20/2020 16:06:50 12/20/2020 17:19:03 Routine care 089823485 Z34.82 Migraine 77994961 G43.90 9 [id number] Danii Hamilton [facility] [address],[place] [address] 01/22/2021 10:45:53 01/22/2021 12:05:22 Surveillance of depot contraception done 4664207644 9104 Z30.42 Elective t ermination of 59671555 Z33.2 [id number] Danii Hamilton [facility] [address],[place] [address] 03/06/2021 15:29:12 03/06/2021 17:05:52 Contraception care management 267763728 Z30.9 [id number] Danii Hamilton [facility] [address],[place] [address] 06/05/2021 11:37:17 06/05/2021 12:03:47 [id number] Monica Patrick [facility] [address],[place] [address] 01/02/2022 15:42:03 01/02/2022 17:19:19 Abnormal uterine bleeding 6720273241 9100 N93.9 Will return to discuss Lyn rajesh her extended AUB is from Depo injections but since AUB has been since February of 2021 we want to ensure there are no other issues or low iron levels.John alfaro return to discussAUB has stopped x 3 days now. [id number] Juanito Mendieta MD [facility] [address] [address] 01/09/2022 11:30:36 01/09/2022 11:53:59 Abnormal uterine bleeding 0961316064 9100 N93.9 [id number] Monica Patrick [facility] [address],[facility] [address] 01/17/2022 09:56:06 01/17/2022 10:38:01 Abnormal uterine bleeding 9303569364 9100 N93.9 TVUS reviewed.W NLLabs being managed [...] this patient s visit, including available hand horticultural nursery assistant upon arrive, temperatur e check and being asked a series of screening questions. All staff wore face coverings during this encounter, as well as provided additional cleaning and sanitizing of all surfaces, including counter tops, pens, chairs, door handles, light switches, etc, prior to and following the patient s visit. Irregular periods 826829 07 N92.6 [id number] Monica Patrick [facility] [address],[place] [address] 04/22/2022 16:46:10 2022 00:23:04 Vaginitis 81412893 N76.0 Suspect BVNeg new partnerRx sent Contracept [facility] care management 058532035 Z30.9 Patient is here today for a [...] counseling and review of plan of care. [id number] Monica Patrick , [facility] [address],[place] [address] 05/13/2022 15:25:03 05/13/2022 15:45:07 Sexually transmitted infectious disease 9795870 A64 Testing sent todayWill contact with [email or web address] portal messages. Time spent in visit is a total of 15 mins with at least 50% of visit consisting of counseling and review of plan of care. [id number] Monica Patrick , [facility] [address],[place] [address] 06/02/2022 09:52:07 06/02/2022 11:28:21 Venereal disease screening 819949919 Z11.3 Discussion & in depth counseling on [...] for retest/med check. https://yo ungwomensh ealth.org/ /herpes/#[place].gov also used for counseling purposes. Time spent in visit is a total of 30 mins with at least 50% of visit consisting of counseling and review of plan of care. 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 Counseled on medication R/B's, Most common side effects, & use. All questions were answered to patient satisfacti on. [id number] Juanito Mendieta MD [facility] [address],[place] [address] 12/19/2022 12:26:48 12/19/2022 13:37:43 Uncertain viability of 059286796 O36.80X9 Z3A.01 [id number] MD Rachell [facility] [address],[place] [address] 01/09/2023 14:47:28 01/09/2023 16:16:48 [id number] [facility] [address],[place] [address] 01/09/2023 14:48:06 01/09/2023 16:26:03 Amenorrhea 69821627 N91.2 reviewed office, education, folder, f/u new ob and first look at 12 weeks plan nips at 10 Gynecologi c examination 90147063 Z01.419 Z11.3 Z11.8 [id number] Juanito Mendieta MD [facility] [address],[place] [address] 01/26/2023 09:56:29 01/26/2023 10:32:23 screening 794401735 Z36.82 [id number] Juanito Mendieta MD [facility] [address] [place] [address] 01/26/2023 09:56:42 01/26/2023 11:58:29 Routine care 498234302 Z34.82 [id number] Danii Hamilton CNM [facility] [address] [place] [address] 02/25/2023 12:06:09 02/25/2023 13:58:18 Routine care 539008579 Z34.93 [id number] Juanito Mendieta MD [facility] [address],[place] [address] 03/25/2023 16:53:53 03/26/2023 13:43:56 screening for malformation 928714365 Z36.3 [id number] [facility] [address],[place] [address] 03/25/2023 16:54:13 03/26/2023 13:56:53 Routine care 652907214 Z34.93 [id number] Juanito Mendieta MD [facility] [address],[place] [address] 04/22/2023 17:05:24 04/22/2023 17:34:40 History of SARS-CoV-2 5647194099 51303865 Z86.16 [id number] [facility] [address],[place] [address] 04/22/2023 17:05:49 04/22/2023 17:52:56 Routine care 190454192 Z34.93 [id number] Juanito Mendieta MD [facility] [address],[place] [address] 05/20/2023 10:58:13 05/20/2023 14:53:06 COVID-19 258665852 U07.1 Z86.16 Z3A.27 [id number] Danii Hamilton [facility] [address],[place] [address] 05/20/2023 10:58:47 05/20/2023 12:31:15 Routine care 184824118 Z34.93 [id number] Danii Hamilton CNM [facility] [address],[place] [address] 06/03/2023 09:36:48 06/03/2023 10:06:55 Nausea and vomiting 44074795 R11.2 Routine an tenatal care 346457655 Z34.93 [id number] Juanito Mendieta MD [facility] [address],[place] [address] 06/17/2023 10:34:00 06/17/2023 11:18:48 condition affecting obstetrical care of mother 177554215 O35.3XX0 Z3A.31 [id number] Danii Hamilton [facility] [address],[place] [address] 06/17/2023 10:36:21 06/17/2023 12:01:45 Routine care 655991994 Z34.93 [id number] Danii Hamilton [facility] [address],[place] [address] 07/01/2023 11:45:05 07/01/2023 14:09:21 Routine care 173691131 Z34.93 screening 2437 14201 Z36.89 [id number] Danii Hamilton [facility] [address],[place] [address] 07/15/2023 10:50:05 07/15/2023 12:02:37 Routine care 600908123 Z34.93 [id number] Juanito Mendieta MD [facility] [address],[place] [address] 07/15/2023 10:50:29 07/15/2023 11:28:18 condition affecting obstetrical care of mother 860593315 O35.3XX0 Z3A.35 [id number] Juanito Mendieta MD [facility] [address],[place] [address] 07/22/2023 10:50:10 07/22/2023 11:56:28 Polyhydramnios 16597282 O40.3XX0 Z3A.36 [id number] [facility] [address],[place] [address] 07/22/2023 10:50:22 07/22/2023 12:48:32 Routine care 282544606 Z34.93 [id number] Juanito Mendieta MD [facility] [address],[place] [address] 07/29/2023 09:32:41 07/29/2023 09:57:20 Polyhydramnios 60764374 O40.3XX0 Z3A.37 [id number] [facility] [address],[place] [address] 07/29/2023 09:33:09 07/29/2023 10:30:52 Routine care 752211122 Z34.93 [id number] Juanito Mendieta MD [facility] [address],[place] [address] 08/05/2023 12:00:05 08/05/2023 12:40:06 Polyhydramnios 98865983 O40.3XX0 Z86.16 Z3A.38 [id number] [facility] [address],[place] [address] 08/05/2023 12:00:33 08/05/2023 13:30:27 Routine care 477679904 Z34.93 [id number] Danii Hamilton CNM [facility] [address],[place] [address] 09/16/2023 10:38:13 09/16/2023 14:04:21 care 953527603 Z39.2 doing well, monitor mood, f/u wwe in 6 mo [id number] Danii Hamilton CNM [facility] [address],[place] [address] 01/20/2024 09:53:54 01/20/2024 10:46:16 Vaginitis 01274941 N76.0 Mixed anxi ety and depressive disorder 401743201 F41.8 discussed counseling and handout givenstart zoloft 25 mg x 1 week then 50 mg dailyrisks , se, benefits reviewedif any suicidal thoughts to EDf/u 6 week med heck or sooner if needed [id number] Danii Hamilton CNM [facility] [address] [address] 01/11/2025 15:52:02 01/11/2025 16:57:12 Gynecologic examination 25792600 Z01.419 Z11.3 Z11.8 Mixed anxi ety and depressive disorder 036265104 F41.8 discussed counseling and handout givenstart zoloft 25 mg x 1 week then 50 mg dailyrisks , se, benefits reviewedif any suicidal thoughts to EDf/u 6 week med heck or sooner if needed [id number] Danii Hamilton CNM [facility] [address] [address] 07/21/2025 11:40:00 07/21/2025 14:12:20 Bacterial vaginosis 852676331 N76.0 B96.89 [id number] Anxiety 83354037 F41.9 73476 discussed counseling and handout givenstart zoloft 25 [...] Reyes Member ID Guarantor Name 09/21/2023 1 [place] Lila Lira [id number] Deshayla V Soraya 09/21/2023 1 [facility] PRIOR TO 04/18/2021 (MEDICAID REPLACEMENT - HMO) Deshayla Soraya [id number] Deshayla V Lira 07/19/2025 1 [facility] - DOS ON OR AFTER 21 (MEDICAID REPLACEMENT - HMO) Kvnghayla Soraya [id number] Desmarshallyla V Soraya Notes Date Note Type Note Provider Name and Address Organization Details Recorded Time 3 text/html Generic HPI TemplateReported by Patient Danii Hamilton CNM [address], [place], [address], [facility] 08/05/2023 13:08:45 3 text/html VisitReported by [...] counseling declines medicationROS as noted in the HPI Danii Hamilton CNM [address], [place], [address], [facility] 09/16/2023 13:54:00 4 text/html Vaginal/Vulvar ProblemReported by Patientc/o vaginal d/c x 1 week no other sxs, at the end of cyclealso discussed anxiety and depression, not getting better, baby 6 mo oldno suicidal thoughts, tearful, wants to start medicationROS as noted in the HPI Danii Hamilton CNM [address], [place], [address], [facility] 01/20/2024 10:45:17 5 text/html Annual GYNReported [...] has been nervousROS as noted in the [facility] Danii Hamilton CNM [address], [place], [address], [facility] 01/11/2025 16:51:57 5 text/html Vaginal/Vulvar ProblemReported by Patientc/o odor and increased vaginal discharge x couple weeksc/o anxiety and depression no suicidal thoughts, quick to anger, managing work, 3 kidsdiscussed starting meds, pt agrees and will f/u with ruslan whatley if no improvementROS as noted in the HPI Danii Hamilton CNM [address], [place], [address], [facility] 07/21/2025 14:06:07 OBGyn Episode Ob Episode Information Episode Created Date Number of Fetuses Patient Bloodtype Patient rh Status Prepregnancy Weight lbs Domestic Partner Domestic Partner Phone Father Name [employer] Status 01/31/20 20 1 CLOSED Fetus Data First Name Last Name Admitted to NICU Weight (g) Sex Living Outcome Pediatric Complications Fetus ID Race Codes Race Delivery Type 1583.65 4704 M Full Term 315 Vaginal Delivery [...] Domestic Partner Domestic Partner Phone Father Name [employer] Status 01/31/20 20 1 O Positive 131 CLOSED Fetus Data First Name Last Name Admitted to NICU Weight (g) Sex Living Outcome Pediatric Complications Fetus ID Race Codes Race Delivery Type 2636.50 35 F true Prematur e Low HC 311 Vaginal Delivery Problems Problem Notes Problem Name Start Date End Date Resolution Snomed Code Not e Small head 908275566 MFM - low normal growth overall 04/24/20 [...] Date Ultra Sound Latest Days Gestation 0 [email or web address] 02/15/2020 06/18/20 20 0 Pre- Flowsheet Flowsheet [...] Weight in lbs Pre/Post Dialysis Refused Weight 126.23978102317 BP Diastolic BP Location Tested BP Systolic [...] Weight in lbs Pre/Post Dialysis Refused Weight 129.625627362387 BP Diastolic BP Location Tested BP Systolic [...] Weight in lbs Pre/Post Dialysis Refused Weight 129.217133343259 BP Diastolic BP Location Tested BP Systolic BP Type 77 116 Fetus Heart Rate Present A 151 Fetus Movement A Yes Comments Flowsheet Date 12/05/2019 Rodrigues Score Blood Edema Fundus Height Fundus Units Glucose Ketones Leukocytes Nitrite Labor Signs Protein Cervic Dilation Cervic Effacement Cervic Station 12 trace Type Weight in lbs Pre/Post Dialysis Refused Weight 126.19193532117 BP Diastolic BP Location Tested BP Systolic [...] Weight in lbs Pre/Post Dialysis Refused Weight 125.688737656058 BP Diastolic BP Location Tested BP Systolic BP Type 62 116 sitting Fetus Heart Rate Present A 157 Fetus Movement A Yes Comments OB [id number] pt states that olivares ving nausea on occasion.Second seq to be drawn today. Pt is having a gir Myliah. Flowsheet Date 03/26/2020 Rodrigues Score Blood Edema Fundus Height Fundus Units Glucose Ketones Leukocytes Nitrite Labor Signs Protein Cervic Dilation Cervic Effacement Cervic Station 28 trace Type Weight in lbs Pre/Post Dialysis Refused Weight 128.984362950612 BP Diastolic BP Location Tested BP Systolic [...] Weight in lbs Pre/Post Dialysis Refused Weight 128.126184639647 BP Diastolic BP Location Tested BP Systolic [...] Weight in lbs Pre/Post Dialysis Refused Weight 129.408091985538 BP Diastolic BP Location Tested BP Systolic [...] Weight in lbs Pre/Post Dialysis Refused Weight 130.357975385136 BP Diastolic BP Location Tested BP Systolic [...] Weight in lbs Pre/Post Dialysis Refused Weight 131.644826023612 BP Diastolic BP Location Tested BP Systolic [...] Weight in lbs Pre/Post Dialysis Refused Weight 127.847541243521 BP Diastolic BP Location Tested BP Systolic [...] Estim ated Date of Delivery false Thalassemia (Algerian, Mexican, Mediterranean, Or Background): MCV < 80 false Neural Tube Defect (Meningomyelocele, Spina Bifi da, Or Anencephaly) false Congenital Heart Defect false Down Syndrome false Jose-Sachs (eg, Protestant, Cajun, Yakut-Jber) f alse Kim Disease false Sickle Cell [...] Complications Tubal Sterilization Discharge Date Comments 0 [facility] id[facility] 35.6 true Discharge Information Feeding Method Contraceptive Method Maternal HG B and HCT Levels Ob Episode Information Episode Created Date Number of Fetuses Patient Bloodtype Patient rh Status Prepregnancy Weight lbs Domestic Partner Domestic Partner Phone Father Name [employer] Status 01/31/20 20 1 CLOSED Fetus Data [...] Domestic Partner Domestic Partner Phone Father Name [employer] Status 01/31/20 20 1 DELETED Gerard Calculation [...] Domestic Partner Domestic Partner Phone Father Name [employer] Status 05/24/20 20 1 DELETED Gerard Calculation [...] Domestic Partner Domestic Partner Phone Father Name [employer] Status 12/21/19 21 1 O Positive 123 CLOSED Fetus Data First Name Last Name Admitted to NICU Weight (g) Sex Living Outcome Pediatric Complications Fetus ID Race Codes Race Delivery Type , Induced 8275 Problems Problem Notes Problem Name Start Date End Date Resolution Snomed Code Not e Migraine 02866419 Past history of pr emature delivery 443526933 [place] Gerard Calculation Initial Gerard Date Initial Exam [...] Weight in lbs Pre/Post Dialysis Refused Weight 123.180567793473 BP Diastolic BP Location Tested BP Systolic [...] Estim ated Date of Delivery false Thalassemia (Algerian, Mexican, Mediterranean, Or Background): MCV < 80 false Neural Tube Defect (Meningomyelocele, Spina Bifi da, Or Anencephaly) false Congenital Heart Defect false Down Syndrome false Jose-Sachs (eg, Protestant, Cajun, Yakut-Jber) f alse Kim Disease false Sickle Cell [...] Domestic Partner Domestic Partner Phone Father Name [employer] Status 12/30/19 23 1 CLOSED Fetus Data First Name Last Name Admitted to NICU Weight (g) Sex Living Outcome Pediatric Complications Fetus ID Race Codes Race Delivery Type Ectopic Gerard Calculation Initial Gerard Date Initial Exam [...] Domestic Partner Domestic Partner Phone Father Name [employer] Status 01/27/20 23 1 O Positive 118 CLOSED Fetus Data First Name Last Name Admitted to NICU Weight (g) Sex Living Outcome Pediatric Complications Fetus ID Race Codes Race Delivery Type 3798.83 3 M true Full Term 00686 Vaginal Delivery Problems Problem Notes CF negative 03/2017SMA negat mino 10/2019 Problem Name Start Date End Date Resolution Snomed Code Not e Excessive salivation 08618572 SARS-CoV-2 01/01/2023 264911449 ASA, ser ial growth Premature delivery [id number] Anemia 06/18/2023 MEDICATION [id number] 1 tab sl owfe daily Vitamin D deficiency 06/18/2023 MEDICATION [id number] 6 2000 iu daily Polyhydramnios [id number] 07/15 07/22 A1C WNL Herpes simplex [id number] 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 [...] Weight in lbs Pre/Post Dialysis Refused Weight 124.845443502500 BP Diastolic BP Location Tested BP Systolic [...] Weight in lbs Pre/Post Dialysis Refused Weight 128.920569339967 BP Diastolic BP Location Tested BP Systolic [...] Weight in lbs Pre/Post Dialysis Refused Weight 133.940348835906 BP Diastolic BP Location Tested BP Systolic [...] Weight in lbs Pre/Post Dialysis Refused Weight 142.561141584440 BP Diastolic BP Location Tested BP Systolic [...] Weight in lbs Pre/Post Dialysis Refused Weight 145.4273996630 BP Diastolic BP Location Tested BP Systolic [...] Weight in lbs Pre/Post Dialysis Refused Weight 148.473192674061 BP Diastolic BP Location Tested BP Systolic [...] Weight in lbs Pre/Post Dialysis Refused Weight 147.720737893203 BP Diastolic BP Location Tested BP Systolic BP Type 61 98 Fetus Heart Rate Present Fetus Movement A Yes Comments patient is having some light headed, dizzy, shortness of breathe and contractions. check labs, continue iron, check labs efw 90%, bpd 97% precautions reviewed, hydration, small frequent measlworks alone at night with pt's if sxs continue will need to optical worker if able/or disc working due to safety f/u 2 weeks Flowsheet Date 07/01/2023 Rodrigues Score Blood Edema Fundus Height Fundus Units Glucose Ketones Leukocytes Nitrite Labor Signs Protein Cervic Dilation Cervic Effacement Cervic Station neg none none trace Type Weight in lbs Pre/Post Dialysis Refused Weight 150.439950073362 BP Diastolic BP Location Tested BP Systolic [...] Weight in lbs Pre/Post Dialysis Refused Weight 153.948348062200 BP Diastolic BP Location Tested BP Systolic [...] Weight in lbs Pre/Post Dialysis Refused Weight 155.63307235567 BP Diastolic BP Location Tested BP Systolic BP Type 75 109 Fetus Heart Rate Present Fetus Movement A Yes Comments patient is having some contr actions. precautions reviewed, IOL scheduled, bpp 8/8 f/u one week Flowsheet Date 07/29/2023 Rodrigues [...] Weight in lbs Pre/Post Dialysis Refused Weight 158.597372103236 BP Diastolic BP Location Tested BP Systolic [...] Weight in lbs Pre/Post Dialysis Refused Weight 160.979336093777 BP Diastolic BP Location Tested BP Systolic [...] Estim ated Date of Delivery false Thalassemia (Algerian, Mexican, Mediterranean, Or Background): MCV < 80 false Neural Tube Defect (Meningomyelocele, Spina Bifi da, Or Anencephaly) false Congenital Heart Defect false Down Syndrome false Jose-Sachs (eg, Protestant, Cajun, Yakut-Jber) f alse Kim Disease false Sickle Cell Disease Or Trait () false Hemophilia Or Other Blood Disorders false Muscular Dystrophy false Cystic Fibrosis false Mesa's Chorea false Intellectual Disability/Autism false If Yes, [...] Post Complications Tubal Sterilization Discharge Date Comments [facility] idural 39.1 false Alfonso Danii CNDulce Anemia, Excessive salivatio n, Herpes simplex, Polyhydra mnios, Premature delivery, SARS-CoV- 2, Vitamin D deficienc y Discharge Information Feeding Method Contraceptive Method Maternal HG B and HCT Levels
--- OUTSIDE RECORDS SUMMARY | 2025-08-25 12:28 | XMS_ITS | Clinical Summary ---
Author Organization [facility] Address [address] [place] [address] Care Team Providers Care Court Manager Name Role Phone Unavailable Primary Care Provider Unavailabl e Source Comments [facility],non-owned Affiliates and Associated Physician Practices is amultiple site organization consisting of ambulatory clinics and hospital sitesin [place], [place], [place] and [place]. This disclosure is being madepursuant to the Care Everywhere program and may not contain all information available regarding this patient. Last updated 18.[facility] Allergies No known active allergies Active Problems [...] patient's age to complete this topic Insurance [facility] Gigi Joe [address] [facility]
== END 2025-08-25 12:09 | disposition home or self-care (01) ==
LOC: ANHIMG 12:09
PROVIDERS: Visit Provider Surgery
DX: R10.11 Right upper quadrant pain (principal)
CPT/HCPCS: 78227; A9537; J2805

== ENCOUNTER 2025-10-09 15:51 | Emergency (ER) | payer OTHER, SELFPAY ==
[2025-10-09 16:04] VITALS: BP 114/71; PULSE 86; RESP 18; TEMP 36.5; O2SAT 100
--- NOTE | 2025-10-09 16:48 | ED_ITS ---
HPI - Ear Problem General Chief complaint: Ear Stated complaint: headache/right ear clogged Time Seen by Provider: 10/09/25 16:48 Source: patient, RN notes reviewed and old records reviewed Mode of arrival: ambulatory Limitations: no limitations History of Present Illness HPI Narrative: 25-year-old female presents to the [facility] with a frontal sinus headache, nasal congestion and right ear discomfort. Patient states the ear discomfort started last night, today started with sinus pressure. No treatment prior to arrival. Requesting a work note Related Data Home Medications ?Medication ?Instructions ?Recorded ?Confirmed ?Last Taken ?Type sertraline 50 mg tablet mg 10/09/25 Unknown History Allergies Allergy/AdvReac Type Severity Reaction Status Date / Time No Known Allergies Allergy Verified 10/09/25 16:40 Review of Systems Review of Systems: All systems reviewed & are unremarkable except as noted in HPI and below Constitutional: Constitutional: Reports no additional constitutional complaints ENT: Reports as per HPI Cardiovascular: Cardiovascular: Reports no additional cardiovascular complaints, Denies chest pain and Denies dyspnea Respiratory: Respiratory: Reports no additional respiratory complaints, Denies chest congestion, Denies cough and Denies dyspnea Musculoskeletal: Musculoskeletal: Reports no additional musculoskeletal complaints Integumentary/Breasts: Skin/Breast: Reports system reviewed and no additional complaints, except as docu PMFSH Past Medical History Medical History IUP (intrauterine ), incidental No significant medical problems Surgical History Surgical History History of tonsillectomy Family History Family History Other Family history non-contributory Social History Social History Smoking status: Never smoker Second hand tobacco smoke exposure: No Alcohol intake: current Alcohol use details: social Substance use: never Substance use type: does not use Lack of Transportation: No Lack of Food: Never True Current Housing: I Have Housing Concerned About Future Housing: No Difficulty Paying Gas/Electric Bills: No Difficulty Paying for Meds: No Currently Unemployed: No Education: High School Diploma/GED Difficulty w/ Childcare or Family Care: No Living arrangements: with family Occupation/Education: unemployed Gender identity (if verbalized by the patient): Female Sexual Orientation (if Verbalized by the Patient): Straight or Heterosexual Spiritual care concerns: No Agree to blood products: Yes Comments At the time of my signature, I reviewed and agree with the nursing past medical, surgical, social, and family history. There is no relevant family history pertinent to the patient complaint. Exam Const: General: cooperative, healthy appearing, comfortable, no acute distress, well developed, alert and well nourished Nutritional Appearance: well nourished Orientation/consciousness: patient oriented x3 Limitations: no limitations HENMT: Head: normal to inspection Ears: hearing grossly normal bilaterally, external ears normal, TM's normal bilaterally, EAC's normal, mastoids normal and no periauricular adenopathy Face and sinus: normal facial exam and face symmetric Mouth: Yes Normal oral and palatal mucosa present, Yes lip normal, Yes tongue normal and Yes moist mucous membranes Throat: posterior oropharynx normal, uvula midline and no uvular edema Eyes: General: appearance normal, both eyes and all related structures Ali gnment and Position: alignment normal Neck: Neck: normal visual inspection, full ROM, no lymphadenopathy and no meningeal signs Chest: Chest palpation & inspection: normal inspection of the chest Resp: Effort & Inspection: normal respiratory effort and able to speak in complete sentences Auscultation: clear to auscultation bilaterally, no crackles, no rales, no rhonchi and no wheezes Cardio: Rate: regular rate Skin: General skin exam: normal color and no rashes or lesions noted Neuro: General: patient oriented x3, gait normal, moves all extremities and no meningeal signs Cognition (Neuro): normal cognition Speech: normal speech Gait exam (Neuro): Normal gait present Extrem: General: normal to inspection, full ROM, capillary refill normal and normal gait Psych: Appearance: grossly normal and well kempt Mental Status: mental status grossly normal Speech and movement: Normal speech and movement present and Clear speech present Affect: normal affect Attitude: cooperative Course Course Level of Care: Express Care Visit Vital Signs Vital signs: Vital Signs Temperature 97.7 F 10/09/25 16:04 Pulse Rate 86 10/09/25 16:04 Respiratory Rate 18 10/09/25 16:04 Blood Pressure 114/71 10/09/25 16:04 Pulse Oximetry 100 10/09/25 16:04 Oxygen Delivery Room Air 10/09/25 16:04 Temperature 97.7 F 10/09/25 16:04 Pulse Rate 86 10/09/25 16:04 Respiratory Rate 18 10/09/25 16:04 Blood Pressure 114/71 10/09/25 16:04 Pulse Oximetry 100 10/09/25 16:04 Oxygen Delivery Room Air 10/09/25 16:04 reviewed MDM MDM Narrative Medical decision making narrative: patient sitting in exam room. Patient is nontoxic, vitals stable. Patient started with ear pressure last night, sinus issues this morning. No treatment prior to arrival. No acute findings noted on exam. Patient is flu and COVID are negative. Patient is appropriate for outpatient treatment with close follow-up Discharge instructions reviewed with patient, as well as provided in writing per nursing staff. The instructions also include specific and strict return/GO TO THE ER as well as f/u information. All questions have been answered, and the patient deny any further questions with discharge and discharge plan. Some parts of this dictation were generated by voice recognition software and may contain typographical and/or grammatical inaccuracies. Differential Diagnosis Differential Diagnosis: Differential diagnostic considerations for upper respiratory infection include upper respiratory infection, croup, otitis media, sinusitis, viral infection, bronchitis, influenza, pharyngitis, strep, uvulitis.? Lab Data Labs: Lab Results 10/09/25 Range/Units 16:55 POC Influenza A Ag Negative (Negative) POC Influenza B Ag Negative (Negative) POC SARS CoV-2 Ag Negative (Negative) reviewed Discharge Plan Discharge Clinical Impression: Upper respiratory infection, viral Patient Disposition: Home Condition: Stable Instructions: Antibiotic Form, Upper Respiratory Infection (DC), Viral Syndrome (ED) Additional Instructions: Your rapid COVID test were negative Your rapid flu test was negative Your symptoms are likely due to a viral illness, which is not treated with antibiotics. Typically viral infections last 7-10 days, can linger for couple of weeks. It is very important to treat your symptoms. Drink plenty of water, Gatorade, Pedialyte, ice pops or Jell-O. -Alternate Tylenol and Motrin per package directions for fever or pain. You can alternate every 4 hours -Antihistamine medication such as Zyrtec/Claritin/Jenna during the day can help improve symptoms. -doing daily nasal irrigations can help relieve pressure your sinuses. Things like a Neti pot -Use Flonase twice a day for 5 days then daily to help reduce the inflammation and dry up your sinuses. -You can also use Mucinex. Be sure to drink plenty of water with this medication at least 8 ounces with every dose and it is important to drink 8 to 10 glasses of water per day. Water is a natural decongestant -Eat and drink things that are easy to swallow, like tea or soup, or popsicles. -Oral rinses such as: Salt water gargles and/or may use topical anesthetic (eg. Chloraseptic spray) or lozenges to relieve dryness or throat pain). -Frequent hand washing or hand card doffer is one of the best ways to prevent spread of infection. -Using a vaporizer or humidifier at night will also help thin secretions and help with coughing up phlegm. -Follow up with primary care provider in 7-10 days if condition is not improving - For new or worsening symptoms go directly to the nearest ER Patient Language: Thai Prescriptions: No Action sertraline 50 mg tablet Follow-up/Referrals: PHYSICIAN,ROOMING HOUSE KEEPER [Primary Care Provider, Internal Medicine] Stand Alone Forms: Work/School Release IP Time of Disposition: 17:09
[2025-10-09 17:13] LABS: EDCOVIDSCREEN Negative (Negative); EDINFLUASCREEN Negative (Negative); EDINFLUBSCREEN Negative (Negative)
== END 2025-10-09 17:16 | disposition home or self-care (01) ==
PROVIDERS: Emergency Provider Nurse Practitioner
DX: J06.9 Acute upper respiratory infection, unspecified (principal); Z20.822 Contact with and (suspected) exposure to COVID-19
CPT/HCPCS: 87426; 87804; 99212; G0463